=== PATIENT | male | born 2000 | race Caucasian/White ===

== ENCOUNTER 2023-06-05 10:52 | Outpatient (AMB) | payer OTHER, SELFPAY ==
[2023-06-05 10:53] VITALS: BP 122/86; PULSE 110; O2SAT 97; BMI 26.1
--- NOTE | 2023-06-05 10:53 | MHC.PC.OV ---
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 Intake Note: Patient is a new patient here to establish care Real Estate Attorney Required: No Allergies No Known Allergies Allergy (Verified 06/05/23 10:54) Medication List - Last Reconciled 06/05/23 by YVONNE Castro No Known Home Meds Tobacco use date assessed: 06/05/23 Dental Screening Dental Screen Date: 06/05/23 Did you have a dental visit in the last 12 months?: Yes Did you have a dental problem in the last 6 months where you did not have access to dental care?: No Was dental information given to patient?: Patient has dentist HPI HPI Comments History of Present Illness Details 22-year-old male with ADD, MDD, kyaw, marijuana use 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 Loud ADHD sx. Hard time getting things done. Was going to school but did not go this semester as classes were too hard. 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 Denies SI/HI. Is using marijuana some times. Has tried sertraline and fluoxetine in the past Was a pathways program for his dep Hard time falling asleep. Staying asleep is good; getting out of bed and getting going is hard. Appetite is good. Wt up for the first time in a long time. Last time he took his meds was about 9 months ago when he aged out of Peds and was out of refills. He was on prozac 50mg QD with + effect and Adderral ER 20mg QD. He would like r/s these meds. [facility] Medical History (Updated 06/05/23 @ 11:36 by YVONNE Castro) Depression Anxiety Family History (Updated 06/05/23 @ 11:16 by LAUREN Whitehead) Mother Asthma Psychiatric diagnosis Social History Housing: House Patient Tobacco Use Status: Never used Tobacco Second Hand Smoke Exposure: No service: No Current occupational status: unemployed Cognitive needs: No Hearing needs: No Vision needs: No Questionnaire PHQ-9 Over the last 2 weeks, how often have you been bothered by any of the following problems? 1. Little interest or pleasure in doing things: several days 2. Feeling down, depressed, or hopeless: more than half the days 3. Trouble falling or staying asleep, or sleeping too much: several days 4. Feeling tired or having little energy: several days 5. Poor appetite or overeating: not at all 6. Feeling bad about yourself - or that you are a failure or have let yourself or your family down: several days 7. Trouble concentrating on things, such as reading the newspaper or watching television: nearly every day 8. Moving or speaking so slowly that other people could have noticed. Or the opposite - being so fidgety or restless that you have been moving around a lot more than usual: several days 9. Thoughts that you would be better off or of hurting yourself in some way: not at all Total score: 10 Depression Screening Interpretation: Positive Depression Screening Done: Yes 04766 - PHQ-9 Billing: Yes Source: Developed by Drs. Tacos Decker, Yina Eisenberg, Jovany Chatman and colleagues, with an educational quinton from [employer]. Thrive Questionnaire Date Thrive assessed: 06/05/23 I am a: Patient What is your living situation today?: I have a steady place to live Within the past 12 months, did the food you bought not last and you didn't have the money to get more?: Never true Within the past 12 months, did you worry whether your food would run out before you got money to buy more?: Never true Do you have trouble paying for medicines?: No Do you have trouble getting transportation to medical appointments?: No Do you have trouble paying your heating and electricity bill?: No Do you have trouble taking care of your child, family member or friend?: No Do you have trouble with day-to-day activities such as bathing, preparing meals, shopping, managing finances, etc.?: No Are you currently unemployed and looking for a job?: No Are you interested in more education?: No Please select the resources that you would like help with: None THRIVE Score: 0 AUDIT C Alcohol Use Questionnaire (AUDIT-C) 1. How often do you have a drink containing alcohol?: 2-4 times a month 2. How many drinks containing alcohol do you have on a typical day when you are drinking?: 3 or 4 3. How often do you have six or more drinks on one occasion?: Never Total Score: 3 Score Reviewed/Action Taken: Yes KYAW-7 AMB Questionnaire KYAW-7 Date KYAW - 7 assessed: 06/05/23 Feeling nervous, anxious, or on edge: 3 = Nearly every day Not being able to stop or control worryin = Nearly every day Worrying too much about different things: 3 = Nearly every day Trouble relaxin = Several days Being so restless that it is hard to sit still: 1 = Several days Becoming easily annoyed or irritable: 1 = Several days Feeling afraid as if something awful might happen: 0 = Not at all Total KYAW-7 score (0-4 normal; 5-9 mild; 10-14 moderate; 15-21 severe): 12 Source: Developed by Drs. Tacos Decker, Yina Eisenberg, Jovany Chatman and colleagues, with an educational quinton from [employer]. KYAW-7 Assessment Billing KYAW-7 Assessment Tool: KYAW-7 Assessment 38450 Review of Systems Const All systems reviewed & are unremarkable except as noted in HPI and below Physical exam (Primary Care) Vital Signs: Last Vital Signs Pulse 110 H 06/05/23 10:53 BP 122/86 06/05/23 10:53 Pulse Ox 97 06/05/23 10:53 Oxygen Delivery Method Room Air 06/05/23 10:53 BMI result Body Mass Index 26.1 Tobacco/Smoking Status: Tobacco use Status Tobacco use date assessed 06/05/23 06/05/23 10:55 Patient Tobacco Use Status Never used Tobacco 06/05/23 10:55 PHQ-9: PHQ-9 Score PHQ-9: Total score 10 06/05/23 11:26 Depression Screening Interpretation: Positive Thrive Assessment: Date of Thrive Assessment Date Thrive assessed 06/05/23 06/05/23 10:55 Const Other: awake alert cooperative MMM + tachycardia - reports feeling anxious LS CTAB Mood and affect appropriate Assessment and Plan Assessment & Plan (1) MDD (major depressive disorder): Code(s): F32.9 - Major depressive disorder, single episode, unspecified Qualifiers: Major depression recurrence: recurrent Active/Remission status: currently active Major depression episode severity: moderate Qualified Code(s): F33.1 - Major depressive disorder, recurrent, moderate (2) KYAW (generalized anxiety disorder): Code(s): F41.1 - Generalized anxiety disorder (3) ADHD: Code(s): F90.9 - Attention-deficit hyperactivity disorder, unspecified type Qualifiers: Attention deficit-hyperactivity disorder type: predominantly inattentive Qualified Code(s): F90.0 - Attention-deficit hyperactivity disorder, predominantly inattentive type Plan MOBILITY ENGINEER reviewed. Pediatric records received and reviewed. We will start him back on Adderall ER 20 mg p.o. daily. He was made aware that this prescription does require monthly office visit check ins to monitor his vital signs along with his weight and the effectiveness of the medication. He is aware that this is a controlled substance and he will be asked for random pill counts and urine drug screens. If he violates this, controlled substances will no longer be prescribed by this office. In regards to his depression he does not want to start with a counselor at this time. He wishes to get back on his medications and then consider getting back in with a counselor. I have restarted him on Prozac 50 mg daily as he reports took a dose for him past. I told him to take this at bedtime as he is having a hard time sleeping. Total time spent caring for the patient today was 45 minutes. This includes time spent before the visit reviewing the chart, time spent during the visit, and time spent after the visit on documentation This note is constructed using voice recognition software. While every effort has been made to ensure accuracy in anodize machine operator, still errors may have been included Sometimes, these errors may affect the content or meaning of the given sentence . Medications: New fluoxetine (Prozac) 40 mg PO DAILY 90 caps 0RF fluoxetine (Prozac) 10 mg PO DAILY 90 caps 0RF dextroamphetamine-amphetamine 20 mg ER (Adderall XR) Partial Fill upon patient request. 20 mg PO QAM 30 caps 0RF dextroamphetamine-amphetamine 20 mg ER (Adderall XR) Partial Fill upon patient request. 20 mg PO QAM 30 caps 0RF fluoxetine (Prozac) 40 mg PO DAILY 90 caps 0RF fluoxetine (Prozac) 10 mg PO DAILY 90 caps 0RF Patient Instructions: Crisis Hotlines Suicide prevention, domestic violence, and other crisis hotlines for youth, young adults, and their friends and families. [facility]: [facility] Safeline helps youth who have run away, are thinking about running away, or who already ran away but are ready to come home. Parents and guardians can also contact the hotline if they are worried about their child running away or if their child has already left home. The hotline is available 24 hours a day, seven days a week. Youth, parents, and guardians can also use the online chat feature on the [facility] website to ask for help and get support, or [place] [address]. [facility] National Suicide Prevention Lifeline: The [place] Suicide Prevention Lifeline is a network of local crisis centers that are available 24/ to provide support for youth and adults who are in any kind of emotional crisis. In addition to the main hotline number listed above, there are several other numbers to call depending on your needs: Lithuanian Language: Deaf and Hard of [phone] Veterans: Disaster Distress: Anyone can also use their online chat feature on their website. [place] Suicide Prevention Lifeline [facility] Helpline: The [facility] Helpline is available to anyone in [place] who is need of emotional support. Anyone can call or text the helpline to receive help from specially trained volunteers. [place] high school and college students can also get online support through the IMHear_ program. For high school students, volunteers ages 15-18 are available Monday- from 6-9PM. For college students, IMHear_ is available Monday-Monday from 5-9PM. The [employer] Project - The [employer] is a 24/7 crisis intervention and suicide prevention hotline for LGBTQ youth. Youth can also text Arnold to for support, or use the online chat feature on the [employer]'s website. TrevorText is available Monday-Monday between 3-10PM. TrevorChat is available seven days a week between 3-10PM. SafeLink: SafeLink is for anyone who is being affected by domestic violence or dating violence. Volunteers at [employer] speak [place] Leonean and Lithuanian, and [employer] also has a service that can provide translation in more than 130 languages. TTY: Review Flu Vaccine not done: patient reason Coding Level of Care Code New Pt Level 4 (83898) Diagnoses Moderate episode of recurrent major depressive disorder F33.1 Major depression recurrence: recurrent Active/Remission status: currently active Major depression episode severity: moderate KYAW (generalized anxiety disorder) F41.1 Attention deficit hyperactivity disorder (ADHD), predominantly inattentive type F90.0 Attention deficit-hyperactivity disorder type: predominantly inattentive Additional Codes KYAW-7 Assessment Billing - KYAW-7 Assessment Tool: KYAW-7 Assessment 87910 ([id number])
== END 2023-06-05 11:34 | disposition home or self-care (01) ==
PROVIDERS: PCP Nurse Practitioner Family; Visit Provider Nurse Practitioner Family
DX: F33.1 Major depressive disorder, recurrent, moderate (principal); F41.1 Generalized anxiety disorder; F90.0 Attention-deficit hyperactivity disorder, predominantly inattentive type
CPT/HCPCS: 96127; 99204

== ENCOUNTER 2023-07-12 08:01 | Outpatient (AMB) | payer OTHER, SELFPAY ==
--- NOTE | 2023-07-12 08:04 | A.OFFPC_ITS ---
Vital Signs 07/12/23 08:06 Height 5 ft 5 in Weight 148 lb 2 oz BMI 24.6 BP 116/58 L Blood Pressure Location Lt brachial Position Sitting Pulse 97 Pulse Source Pulse Oximeter Pulse Oximetry (%) 97 Oxygen Delivery Method Room Air Intake Visit Reasons: PE Allergies No Known Allergies Allergy (Verified 07/12/23 08:07) Medication List - Last Reconciled 07/12/23 by YVONNE Castro dextroamphetamine-amphetamine 20 mg ER (Adderall XR) 20 mg PO QAM fluoxetine (Prozac) 40 mg PO DAILY fluoxetine (Prozac) 10 mg PO DAILY Tobacco use date assessed: 06/05/23 HPI HPI Comments History of Present Illness Details 22-year-old male with ADD, MDD, kyaw , ma rijuana use 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 Prior was having panic attacks and racing heart nauseas during periods of anxiety. Now still feels anxious in chest, no racing heart and does not feel sick. suppressed sx . Taking at HS. Sleeping is ok. Does not attribute this to medications, rather activity level during the day. Prozac helping with behaviors of shaking and nail biting. + wt loss. Not eating a lot. Has a hard time eating dry foods. Was snacking more prior to meds. Now he feels eating is a task. In regards to ADHD, taking QD. Feels this is working very well. Denies SI, HI. Cont to use marijuana. Twice since last visit. Plan: Cont Adderral same dose. Increase prozac from 50mg to 60mg. Discussed replacing water with caloric beverages. Eat more calorie dense meals or snacks. *monthly visits for Adderral* [facility] Medical History (Updated 07/12/23 @ 08:33 by YVONNE Castro) Depression Anxiety Family History (Updated 06/05/23 @ 11:16 by LAUREN Whitehead) Mother Asthma Psychiatric diagnosis Social History Housing: House Patient Tobacco Use Status: Never used Tobacco Second Hand Smoke Exposure: No service: No Current occupational status: unemployed Cognitive needs: No Hearing needs: No Vision needs: No Questionnaire PHQ-9 Over the last 2 weeks, how often have you been bothered by any of the following problems? Depression Screening Interpretation: Positive Depression Screening Done: Yes Source: Developed by Drs. Tacos Decker, Jovany Rossi and colleagues, with an educational quinton from [employer]. Thrive Questionnaire Date Thrive assessed: 06/05/23 KYAW-7 AMB Questionnaire KYAW-7 Date KYAW - 7 assessed: 06/05/23 Source: Developed by Drs. Tacos eDcker, Jovany Rossi and colleagues, with an educational quinton from [employer]. Review of Systems Const All systems reviewed & are unremarkable except as noted in HPI and below Physical exam (Primary Care) Tobacco/Smoking Status: Tobacco use Status Tobacco use date assessed 06/05/23 06/05/23 10:55 Patient Tobacco Use Status Never used Tobacco 06/05/23 10:55 Depression Screening Interpretation: Positive Thrive Assessment: Date of Thrive Assessment Date Thrive assessed 06/05/23 06/05/23 10:55 Const Other: awake alert cooperative MMM RRR LS CTAB Mood and affect appropriate Assessment and Plan Assessment & Plan (1) ADHD: Comment: Cont: Adderall ER 20 mg p.o. daily. Need to monitor weight. 10 lb loss in 1 month. Caloric beverages and calorie dense snacks He was made aware that this prescription does require monthly office visit check ins to monitor his vital signs along with his weight and the effectiveness of the medication. He is aware that this is a controlled substance and he will be asked for random pill counts and urine drug screens. If he violates this, controlled substances will no longer be prescribed by this office Code(s): F90.9 - Attention-deficit hyperactivity disorder, unspecified type Qualifiers: Attention deficit-hyperactivity disorder type: predominantly inattentive Qualified Code(s): F90.0 - Attention-deficit hyperactivity disorder, predominantly inattentive type (2) KYAW (generalized anxiety disorder): Comment: see MDD A&P for details Plan: increase Prozac 50 mg to 60mg daily to see if this can help curb the anxiety sx Code(s): F41.1 - Generalized anxiety disorder (3) MDD (major depressive disorder): Comment: Has tried sertraline and fluoxetine in the past Was a pathways program for his depression In regards to his depression he does not want to start with a counselor at this time. Plan: increase Prozac 50 mg to 60mg daily Code(s): F32.9 - Major depressive disorder, single episode, unspecified Qualifiers: Major depression recurrence: recurrent Active/Remission status: currently active Major depression episode severity: moderate Qualified Code(s): F33.1 - Major depressive disorder, recurrent, moderate Plan: Total time spent caring for the patient today was 30 minutes. This includes time spent before the visit reviewing the chart, time spent during the visit, and time spent after the visit on documentation This note is constructed using voice recognition software. While every effort has been made to ensure accuracy in assistant professor of surgery, still errors may have been included Sometimes, these errors may affect the content or meaning of the given sentence . (4) Marijuana use: Code(s): F12.90 - Cannabis use, unspecified, uncomplicated Plan Return to the office in 1 month Medications: Changed From fluoxetine (Prozac) 10 mg PO DAILY 90 caps 0RF To fluoxetine (Prozac) 20 mg (2 x 10 mg) PO DAILY 90 caps 0RF Refilled dextroamphetamine-amphetamine 20 mg ER (Adderall XR) Partial Fill upon patient request. 20 mg PO QAM 30 caps 0RF Patient Instructions: Marijuana: Natural = Safe, Right? Marijuana is readily available to use in many states in the [facility]. Understanding the possible risks of use is important to ensure the safety. No matter how you use marijuana (smoke it, eat it, or apply to your skin), it may cause problems with both short term and termite treater use How marijuana affects your BRAIN: Potential effects from Short Term Use Poor focus, memory and reaction time Difficulty with problem solving Hallucinations, paranoia, anxiety Potential effects from Historical Guide Use Memory problems and trouble learning new things Depression, hallucinations, paranoia, anxiety, worsening PTSD symptoms addiction Brain. It is not safe to drive while on marijuana. It makes it hard to us administrative law judge distance, concentrate, react quickly to signals and sounds, be alert and coordinated. If alcohol is combined, this risk is even higher! In regular users, some of the effects from assisted use may last for days or even weeks after stopping marijuana. How inhaling marijuana affects your LUNGS: Inhaling harmful chemicals Gases Small particles Carcinogens (toxins linked to cancer) Breathing problems similar to tobacco smokers Daily cough with mucus Difficulty breathing Lung infections (bronchitis, pneumonia) Lungs How marijuana affects your HEART: Increases risk of heart attack Within the first hour of smoking Increases heart rate 20?100% increase after smoking Increase lasts up to three hours Changes in heart rhythm Feels like your heart skips a beat, or is fluttering, or beating too fast or too slow Heart Is it SAFE to use marijuana with other medications? A combination that can be concerning is the use of opioids and/or benzodiazepines with marijuana. Opioids + Benzodiazepines + Marijuana: Drowsiness: All three can cause drowsiness. Reaction time: All three can reduce reaction time. Do not drive or operate machinery. Overdose: Opioids and Benzodiazepines can cause reduced breathing and in some cases, breathing can stop and a person can . Marijuana containing higher levels of THC may cause difficulty with thinking and memory and this could result in medication errors where extra doses of opioids, benzodiazepines, or other medications may be taken. What is the harm? Example of Opioids Morphine (MS Contin?, Zuleika?) Oxycodone (Percocet?, OxyContin?) Hydrocodone (Vicodin?, Queen?) Fentanyl (Du ragesic?) Methadone Heroin Example of Benzodiazepines Lorazepam (Ativan?) Diazepam (Valium?) Alprazolam (Xanax?) Clonazepam (Klonopin?) If you have specific questions about the safety of using marijuana with other medications, please contact your provider or pharmacist. Some marijuana users can become addicted! You can have problems with marijuana withdrawal. You may have withdrawal symptoms the day after you stop using. These can get worse 2 to 3 days after using and can take 1 to 2 weeks or longer to go away. Recovery and Treatment Contact your provider or health care team if you are having concerns about your marijuana use or to learn more about available treatment services. The marijuana plant is not an FDA-approved medicine: The U.S. Food and Drug Administration (FDA) has not approved the marijuana plant as a medication due to lack of studies on the risks and benefits. Marijuana contains over 100 chemical substances known as cannabinoids. Some of these, like tetrahydrocannabinol (THC), have mind altering effects and can be intoxicating. Cannabidiol (CBD), another cannabinoid, does not cause the same ?high? users of THC experience. THC has been studied for the treatment of several conditions, including nausea and increasing appetite. CBD is similarly being studied for a number of conditions, including childhood epilepsy and inflammation. What is different between the marijuana product I get from the marijuana shop and a prescription from the pharmacy? The right dose of any medicine is important. A specific dose of THC is approved to treat nausea, but high doses of THC may cause vomiting. The ingredients in a medicine must be measured and stay the same from one dose to the next. The marijuana plant contains unknown ingredients that change from plant to plant. This makes it hard to control the ?dose? of marijuana needed to treat a condition and use it in the same way we use other medicines. Future studies are ongoing to establish the role of the marijuana plant and the cannabinoids found in the plant for treatment of medical conditions. If you have questions about using a marijuana product for a medical condition, please discuss this with your medical provider to determine the most appropriate treatment for you. [place] Providers are not able to prescribe marijuana products. Information in this document was compiled by the [facility] Substance Abuse treatment and Education ([facility]). It contains information from factsheets by the National [place] on Drug Abuse (www.drugabuse.gov) and presentation by Shweta Cheng, Shweta Nelson, & Juan Ramon Raphael (2010) entitled ?What providers need to know about cannabis use in Veterans with mental health conditions: Research, policy, practice,? and an additional reference: Shonda Kramer M.D., Desmond Arauz, Ph.D., Han Nelson M.D., and Albina Villatoro, Ph.D: Adverse Effects of Marijuana. N Engl J Med 2014; 370:8157-1943, October 03, 2013 DOI: 10.1056/SMPTcu2493261. [place] [employer]ailing Service Coding Level of Care Code Est Pt Level 4 (35920) Diagnoses Attention deficit hyperactivity disorder (ADHD), predominantly inattentive type F90.0 Attention deficit-hyperactivity disorder type: predominantly inattentive KYAW (generalized anxiety disorder) F41.1 Moderate episode of recurrent major depressive disorder F33.1 Major depression recurrence: recurrent Active/Remission status: currently active Major depression episode severity: moderate Marijuana use F12.90
[2023-07-12 08:06] VITALS: BP 116/58; PULSE 97; O2SAT 97; BMI 24.6
== END 2023-07-12 08:33 | disposition home or self-care (01) ==
PROVIDERS: PCP Nurse Practitioner Family; Visit Provider Nurse Practitioner Family
DX: F90.0 Attention-deficit hyperactivity disorder, predominantly inattentive type (principal); F41.1 Generalized anxiety disorder; F33.1 Major depressive disorder, recurrent, moderate; F12.90 Cannabis use, unspecified, uncomplicated
CPT/HCPCS: 99214

== ENCOUNTER 2023-08-16 08:36 | Outpatient (AMB) | payer OTHER, SELFPAY ==
--- NOTE | 2023-08-16 08:40 | A.OFFPC_ITS ---
Vital Signs 08/16/23 08:41 Height 5 ft 5 in Weight 140 lb BMI 23.3 BP 118/60 Blood Pressure Location Lt brachial Position Sitting Pulse 106 H Pulse Source Pulse Oximeter Intake Visit Reasons: ADHD, KYAW, MDD Allergies No Known Allergies Allergy (Verified 08/16/23 08:43) Medication List - Last Reconciled 08/16/23 by YVONNE Castro dextroamphetamine-amphetamine 20 mg ER (Adderall XR) 20 mg PO QAM fluoxetine (Prozac) 40 mg PO DAILY fluoxetine (Prozac) 20 mg (2 x 10 mg) PO DAILY Tobacco use date assessed: 06/05/23 Dental Screening Dental Screen Date: 06/05/23 HPI HPI Comments History of Present Illness Details 22-year-old male with ADD, MDD, kyaw , ma rijuana use Specialists Counselor - not active Dermatology - not active Health Maintenance: declined flu Here today to fu on KYAW and ADD Self increased Prozac from 60mg to 80 mg and has felt less anxiety. He ran out of 10mg tabs. Sleep is better at this time. Relates to activity Starts new job today - [employer] in [place], as [employer]. 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 Plans to return to school. Cont to lose weight. ADHD sx he feels tolerant to Adderral, no appetite, lots of anxiety and feeling stressed when taking, thoughts racing at night time. Thinks he may have been on Concerta in the past but cannot recall. Peds records from 2019 do not mention. Plan: STOP taking Prozac 80 mg QD. Cont to take 60mg QD. STOP taking Aderral as this is causing adverse effects and wt loss of 17 lbs in 2 months. Start Straterra 10mg po QAM x 2 weeks then increase to 20mg QD. RTO in 4 weeks to fu. [facility] Medical History (Updated 08/16/23 @ 09:14 by YVONNE Castro) Depression Anxiety Family History (Updated 06/05/23 @ 11:16 by LAUREN Whitehead) Mother Asthma Psychiatric diagnosis Social History Housing: House Patient Tobacco Use Status: Never used Tobacco Second Hand Smoke Exposure: No service: No Current occupational status: unemployed Cognitive needs: No Hearing needs: No Vision needs: No Questionnaire Thrive Questionnaire Date Thrive assessed: 06/05/23 KYAW-7 AMB Questionnaire KYAW-7 Date KYAW - 7 assessed: 06/05/23 Source: Developed by Drs. Tacos Decker, Yina Eisenberg, Jovany Chatman and colleagues, with an educational quinton from [employer]. Review of Systems Const All systems reviewed & are unremarkable except as noted in HPI and below Physical exam (Primary Care) Tobacco/Smoking Status: Tobacco use Status Tobacco use date assessed 06/05/23 07/12/23 08:06 Patient Tobacco Use Status Never used Tobacco 07/12/23 08:06 Thrive Assessment: Date of Thrive Assessment Date Thrive assessed 06/05/23 07/12/23 08:06 Const Other: awake alert MMM Tachycardic, regular rythym LS CTAB Jittery and anxious appearing; very pleasant and cooperative. Assessment and Plan Assessment & Plan (1) ADHD: Comment: STOP Adderall d/t side effects and Wt loss Start Strattera 10mg QD x 2 weeks then increase to 20mg QD Code(s): F90.9 - Attention-deficit hyperactivity disorder, unspecified type Qualifiers: Attention deficit-hyperactivity disorder type: predominantly inattentive Qualified Code(s): F90.0 - Attention-deficit hyperactivity disorder, predominantly inattentive type (2) KYAW (generalized anxiety disorder): Comment: see MDD A&P for details Plan: Cont prozac 60mg QD Code(s): F41.1 - Generalized anxiety disorder (3) MDD (major depressive disorder): Comment: Has tried sertraline and fluoxetine in the past Was a pathways program for his depression In regards to his depression he does not want to start with a counselor at this time. Plan: Cont Prozac 60mg QD. Self increased to 80mg when he ran out of 10mg tabs; I query if his uptick in anxiety was related to Adderall. Code(s): F32.9 - Major depressive disorder, single episode, unspecified Qualifiers: Major depression recurrence: recurrent Active/Remission status: currently active Major depression episode severity: moderate Qualified Code(s): F33.1 - Major depressive disorder, recurrent, moderate Plan This note is constructed using voice recognition software. While every effort has been made to ensure accuracy in laser beam cutter, still errors may have been included Sometimes, these errors may affect the content or meaning of the given sentence . Total time spent caring for the patient today was 45 minutes. This includes time spent before the visit reviewing the chart, time spent during the visit, and time spent after the visit on documentation Medications: New fluoxetine 20 mg PO DAILY 90 caps 0RF atomoxetine (Strattera) 20 mg (2 x 10 mg) PO DAILY 60 caps 0RF Discontinued dextroamphetamine-amphetamine 20 mg ER (Adderall XR) Partial Fill upon patient request. Discontinued Reason: Doctor's Order 20 mg PO QAM 30 caps 0RF Patient Instructions: rto in 4 weeks to f/u on Straterra Start Coding Level of Care Code Est Pt Level 5 (58420) Diagnoses Attention deficit hyperactivity disorder (ADHD), predominantly inattentive type F90.0 Attention deficit-hyperactivity disorder type: predominantly inattentive KYAW (generalized anxiety disorder) F41.1 Moderate episode of recurrent major depressive disorder F33.1 Major depression recurrence: recurrent Active/Remission status: currently active Major depression episode severity: moderate
[2023-08-16 08:41] VITALS: BP 118/60; PULSE 106; BMI 23.3
== END 2023-08-16 09:10 | disposition home or self-care (01) ==
PROVIDERS: PCP Nurse Practitioner Family; Visit Provider Nurse Practitioner Family
DX: F90.0 Attention-deficit hyperactivity disorder, predominantly inattentive type (principal); F41.1 Generalized anxiety disorder; F33.1 Major depressive disorder, recurrent, moderate
CPT/HCPCS: 99215

== ENCOUNTER 2023-09-19 13:23 | Outpatient (AMB) | payer OTHER, SELFPAY ==
--- NOTE | 2023-09-19 13:46 | A.OFFPC_ITS ---
Vital Signs 09/19/23 13:47 Height 5 ft 5 in Weight 145 lb 8 oz BMI 24.2 BP 138/76 Blood Pressure Location Lt brachial Position Sitting Pulse 78 Pulse Source Pulse Oximeter Pulse Oximetry (%) 96 Oxygen Delivery Method Room Air Intake Visit Reasons: 1 month w me 30 min f/u Straterra start and Prozac Intake Note: Patient is here to follow up on Straterra and Prozac. Allergies No Known Allergies Allergy (Verified 09/19/23 14:00) Medication List - Last Reconciled 09/19/23 by YVONNE Castro atomoxetine (Strattera) 20 mg (2 x 10 mg) PO DAILY fluoxetine 20 mg PO DAILY fluoxetine (Prozac) 40 mg PO DAILY Tobacco use date assessed: 09/19/23 Dental Screening Dental Screen Date: 06/05/23 HPI HPI Comments History of Present Illness Details Here today to fu on ADHD, MDD and KYAW Since last visit, taking prozac 60mg QD and Straterra 20mg QD Admits it is helping Feeling good Wt has increased; heart rate is back to normal Appetite is back to normal; admits to having cravings and if that food is not av ail some times will not eat. 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 Plan: Cont prozac 60mg QD Increase strattera from 20mg to 36mg QD RTO in 1 month to f/u [facility] Medical History (Updated 09/19/23 @ 15:16 by YVONNE Castro) Depression Anxiety Family History (Updated 06/05/23 @ 11:16 by LAUREN Whitehead) Mother Asthma Psychiatric diagnosis Social History Housing: House Patient Tobacco Use Status: Never used Tobacco e-Cigarette/Vaping Use: Never Used Second Hand Smoke Exposure: No service: No Current occupational status: unemployed Cognitive needs: No Hearing needs: No Vision needs: No Questionnaire PHQ-9 Over the last 2 weeks, how often have you been bothered by any of the following problems? 1. Little interest or pleasure in doing things: several days 2. Feeling down, depressed, or hopeless: not at all 3. Trouble falling or staying asleep, or sleeping too much: not at all 4. Feeling tired or having little energy: not at all 5. Poor appetite or overeating: several days 6. Feeling bad about yourself - or that you are a failure or have let yourself or your family down: not at all 7. Trouble concentrating on things, such as reading the newspaper or watching television: several days 8. Moving or speaking so slowly that other people could have noticed. Or the opposite - being so fidgety or restless that you have been moving around a lot more than usual: nearly every day 9. Thoughts that you would be better off or of hurting yourself in some way: not at all Total score: 6 Depression Screening Interpretation: Positive Depression Screening Done: Yes Source: Developed by Drs. Tacos Decker, Yina Eisenberg, Jovany Chatman and colleagues, with an educational quinton from [employer]. Thrive Questionnaire Date Thrive assessed: 06/05/23 KYAW-7 AMB Questionnaire KYAW-7 Date KYAW - 7 assessed: 09/19/23 Feeling nervous, anxious, or on edge: 1 = Several days Not being able to stop or control worryin = Several days Worrying too much about different things: 1 = Several days Trouble relaxin = Several days Being so restless that it is hard to sit still: 1 = Several days Becoming easily annoyed or irritable: 0 = Not at all Feeling afraid as if something awful might happen: 0 = Not at all Total KYAW-7 score (0-4 normal; 5-9 mild; 10-14 moderate; 15-21 severe): 5 Source: Developed by Drs. Tacos Decker, Yina Eisenberg, Jovany Chatman and colleagues, with an educational quinton from [employer]. Physical exam (Primary Care) Vital Signs: Last Vital Signs Pulse 78 09/19/23 13:47 BP 138/76 09/19/23 13:47 Pulse Ox 96 09/19/23 13:47 Oxygen Delivery Method Room Air 09/19/23 13:47 BMI result Body Mass Index 24.2 Tobacco/Smoking Status: Tobacco use Status Tobacco use date assessed 09/19/23 09/19/23 13:56 Patient Tobacco Use Status Never used Tobacco 09/19/23 13:56 e-Cigarette/Vaping Use Never Used 09/19/23 13:56 PHQ-9: PHQ-9 Score PHQ-9: Total score 6 09/19/23 13:56 Depression Screening Interpretation: Positive Thrive Assessment: Date of Thrive Assessment Date Thrive assessed 06/05/23 09/19/23 13:56 Assessment and Plan Assessment & Plan (1) ADHD: Comment: Increase Strattera from 20 mg to 36 mg daily Code(s): F90.9 - Attention-deficit hyperactivity disorder, unspecified type Qualifiers: Attention deficit-hyperactivity disorder type: predominantly inattentive Qualified Code(s): F90.0 - Attention-deficit hyperactivity disorder, predominantly inattentive type (2) KYAW (generalized anxiety disorder): Comment: see MDD A&P for details Plan: Cont prozac 60mg QD Code(s): F41.1 - Generalized anxiety disorder (3) MDD (major depressive disorder): Comment: Has tried sertraline and fluoxetine in the past Was a pathways program for his depression In regards to his depression he does not want to start with a counselor at this time. Plan: Cont Prozac 60mg QD. Code(s): F32.9 - Major depressive disorder, single episode, unspecified Qualifiers: Major depression recurrence: recurrent Active/Remission status: currently active Major depression episode severity: moderate Qualified Code(s): F33.1 - Major depressive disorder, recurrent, moderate Plan This note is constructed using voice recognition software. While every effort has been made to ensure accuracy in electric stove installer, still errors may have been included Sometimes, these errors may affect the content or meaning of the given sentence . Total time spent caring for the patient today was 30 minutes. This includes time spent before the visit reviewing the chart, time spent during the visit, and time spent after the visit on documentation Medications: New atomoxetine (Strattera) 36 mg (2 x 18 mg) PO DAILY 60 caps 0RF Refilled fluoxetine 20 mg PO DAILY 90 caps 0RF fluoxetine (Prozac) 40 mg PO DAILY 90 caps 0RF Discontinued atomoxetine (Strattera) Discontinued Reason: Doctor's Order 20 mg (2 x 10 mg) PO DAILY 60 caps 0RF Patient Instructions: RTO IN 1 MONTH TO F/U ON INCREASE OF STRATTERA, SOONER IF NEEDED Coding Level of Care Code Est Pt Level 4 (94712) Diagnoses Attention deficit hyperactivity disorder (ADHD), predominantly inattentive type F90.0 Attention deficit-hyperactivity disorder type: predominantly inattentive KYAW (generalized anxiety disorder) F41.1 Moderate episode of recurrent major depressive disorder F33.1 Major depression recurrence: recurrent Active/Remission status: currently active Major depression episode severity: moderate
[2023-09-19 13:47] VITALS: BP 138/76; PULSE 78; O2SAT 96; BMI 24.2
== END 2023-09-19 15:18 | disposition home or self-care (01) ==
PROVIDERS: PCP Nurse Practitioner Family; Visit Provider Nurse Practitioner Family
DX: F90.0 Attention-deficit hyperactivity disorder, predominantly inattentive type (principal); F41.1 Generalized anxiety disorder; F33.1 Major depressive disorder, recurrent, moderate
CPT/HCPCS: 99214

== ENCOUNTER 2023-11-03 09:14 | Outpatient (AMB) | payer OTHER, SELFPAY ==
--- NOTE | 2023-11-03 09:19 | A.OFFPC_ITS ---
Vital Signs 11/03/23 09:20 11/03/23 09:27 Height 5 ft 5 in Weight 128 lb 8 oz 132 lb BMI 21.4 BP 122/80 Blood Pressure Location Rt brachial Position Sitting Respiration 14 Pulse 93 Pulse Source Pulse Oximeter Pulse Oximetry (%) 98 Oxygen Delivery Method Room Air Intake Visit Reasons: med refill Intake Note: Medication follow up. Allergies No Known Allergies Allergy (Verified 11/03/23 09:20) Medication List - Last Reconciled 11/03/23 by YVONNE Castro atomoxetine (Strattera) 36 mg (2 x 18 mg) PO DAILY fluoxetine (Prozac) 40 mg PO DAILY fluoxetine 20 mg PO DAILY Tobacco use date assessed: 09/19/23 Dental Screening Dental Screen Date: 06/05/23 HPI HPI Comments History of Present Illness Details 23 y/o M Here today to fu on ADHD, MDD a nd KYAW Her last office visit his Prozac was maintained at 60 mg daily. His Strattera was increased from 20 mg to 36 mg daily to help with continued breakthrough ADHD symptoms. He reports tolerance and compliance with this treatment regimen. Admitted to improvement in his ADHD symptoms however he continues to noticed difficulties with multistep directions and complex tasks despite the increase. He has not suffering from depressive symptoms or anxiety symptoms. Unfortunately his weight is down today. He attributes this to eating a poor diet outside of work hours, as he gets fresh made and ready made food at work, where as at home he asked to prepare the food and does not like to do this. He also has a physical job and is moving more. Unfortunately he did run out of both the Prozac and the Strattera. Has been without for 1 week. Admits that without the Strattera his ADHD symptoms are burdensome. Awake alert, pleasant & cooperative Tachycardic, regular rhythm LS CTAB Plan: Cont prozac 60mg QD - 90 day refill sent today 0 rf Increase strattera from 36mg to 60mg QD, 1 mo supple 1 rf sent today RTO in 1 month to f/u ADHD and weight loss PFSH Medical History (Updated 11/03/23 @ 10:27 by YVONNE Castro) Depression Anxiety Family History (Updated 06/05/23 @ 11:16 by LAUREN Whitehead) Mother Asthma Psychiatric diagnosis Social History Housing: House Patient Tobacco Use Status: Never used Tobacco e-Cigarette/Vaping Use: Never Used Second Hand Smoke Exposure: No service: No Current occupational status: unemployed Cognitive needs: No Hearing needs: No Vision needs: No Questionnaire Thrive Questionnaire Date Thrive assessed: 06/05/23 KYAW-7 AMB Questionnaire KYAW-7 Date KYAW - 7 assessed: 09/19/23 Source: Developed by Drs. Tacos Decker, Yina Eisenberg, Jovany Chatman and colleagues, with an educational quinton from [employer]. Physical exam (Primary Care) Vital Signs: Last Vital Signs Pulse 93 11/03/23 09:20 Resp 14 11/03/23 09:20 BP 122/80 11/03/23 09:20 Pulse Ox 98 11/03/23 09:20 Oxygen Delivery Method Room Air 11/03/23 09:20 BMI result Body Mass Index 21.4 Tobacco/Smoking Status: Tobacco use Status Tobacco use date assessed 09/19/23 11/03/23 09:19 Patient Tobacco Use Status Never used Tobacco 11/03/23 09:19 e-Cigarette/Vaping Use Never Used 11/03/23 09:19 Thrive Assessment: Date of Thrive Assessment Date Thrive assessed 06/05/23 11/03/23 09:19 Assessment and Plan Assessment & Plan (1) ADHD: Code(s): F90.9 - Attention-deficit hyperactivity disorder, unspecified type Qualifiers: Attention deficit-hyperactivity disorder type: predominantly inattentive Qualified Code(s): F90.0 - Attention-deficit hyperactivity disorder, predominantly inattentive type (2) MDD (major depressive disorder): Comment: Has tried sertraline and fluoxetine in the past Was a pathways program for his depression In regards to his depression he does not want to start with a counselor at this time. Plan: Cont Prozac 60mg QD. Code(s): F32.9 - Major depressive disorder, single episode, unspecified Qualifiers: Major depression recurrence: recurrent Active/Remission status: currently active Major depression episode severity: moderate Qualified Code(s): F33.1 - Major depressive disorder, recurrent, moderate (3) KYAW (generalized anxiety disorder): Comment: see MDD A&P for details Plan: Cont prozac 60mg QD Code(s): F41.1 - Generalized anxiety disorder Plan This note is constructed using voice recognition software. While every effort has been made to ensure accuracy in pin maker, still errors may have been included Sometimes, these errors may affect the content or meaning of the given sentence . Total time spent caring for the patient today was 30 minutes. This includes time spent before the visit reviewing the chart, time spent during the visit, and time spent after the visit on documentation Medications: New atomoxetine 60 mg PO DAILY 30 caps 1RF Refilled fluoxetine (Prozac) 40 mg PO DAILY 90 caps 0RF fluoxetine 20 mg PO DAILY 90 caps 0RF Discontinued atomoxetine (Strattera) Discontinued Reason: Doctor's Order 36 mg (2 x 18 mg) PO DAILY 60 caps 0RF Coding Level of Care Code Est Pt Level 4 (55285) Complex EM visit Add On G2211 Diagnoses Attention deficit hyperactivity disorder (ADHD), predominantly inattentive type F90.0 Attention deficit-hyperactivity disorder type: predominantly inattentive Moderate episode of recurrent major depressive disorder F33.1 Major depression recurrence: recurrent Active/Remission status: currently active Major depression episode severity: moderate KYAW (generalized anxiety disorder) F41.1
[2023-11-03 09:20] VITALS: BP 122/80; PULSE 93; RESP 14; O2SAT 98; BMI 21.4
== END 2023-11-03 09:45 | disposition home or self-care (01) ==
PROVIDERS: PCP Nurse Practitioner Family; Visit Provider Nurse Practitioner Family
DX: F90.0 Attention-deficit hyperactivity disorder, predominantly inattentive type (principal); F33.1 Major depressive disorder, recurrent, moderate; F41.1 Generalized anxiety disorder
CPT/HCPCS: 99214; G2211

== ENCOUNTER 2023-12-01 12:00 | Outpatient (AMB) | payer OTHER, SELFPAY ==
--- NOTE | 2023-12-01 12:03 | MHC.PC.OV ---
Vital Signs 12/01/23 12:06 Height 5 ft 5 in Weight 134 lb BMI 22.3 BP 110/74 Blood Pressure Location Lt brachial Position Sitting Pulse 62 Pulse Source Pulse Oximeter Pulse Oximetry (%) 98 Oxygen Delivery Method Room Air Intake Visit Reasons: FU ADHD/Wt loss Intake Note: Patient here for med f/u Allergies No Known Allergies Allergy (Verified 12/01/23 12:06) Medication List - Last Reconciled 12/01/23 by YVONEN Castro atomoxetine 60 mg PO DAILY fluoxetine (Prozac) 40 mg PO DAILY fluoxetine 20 mg PO DAILY Tobacco use date assessed: 09/19/23 Dental Screening Dental Screen Date: 06/05/23 HPI HPI Comments History of Present Illness Details 23 y/o M Here today to fu on ADHD, MDD and KYAW Here today for a follow up. Since last office visit he feels that his anxiety and depression have been well controlled on Prozac, the dose was not changed in the last office visit. He continues on 60 mg. Needs a refill. In regards to his ADHD, the Strattera was increased at the last office visit from 36 mg to 60 mg. He has been taking this daily as directed. He reports great improvement in his ADHD symptoms. His weight loss has tapered off in his weight is now stable. He would like to continue the medication at the current dose. Does request a referral to a counselor, this referral will be placed today the [facility]. 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 He does wear glasses, the prescription is outdated, he would like a new referral to an eye doctor. A referral to [facility] has been placed today. Plan Continue Prozac 60 mg, Strattera 60 mg, refer to [facility], refer to ophthalmology, return to the office in 3 months for routine follow up of generalized anxiety, major depressive disorder and ADHD, sooner as needed. Exam: Awake alert, pleasant & cooperative Tachycardic, regular rhythm LS CTAB This note is constructed using voice recognition software. While every effort has been made to ensure accuracy in fuse maker, still errors may have been included Sometimes, these errors may affect the content or meaning of the given sentence . [facility] Medical History (Updated 12/01/23 @ 18:27 by YVONNE Castro) Depression Anxiety Family History (Updated 06/05/23 @ 11:16 by LAUREN Whitehead) Mother Asthma Psychiatric diagnosis Social History Housing: House Patient Tobacco Use Status: Never used Tobacco e-Cigarette/Vaping Use: Never Used Second Hand Smoke Exposure: No service: No Current occupational status: unemployed Cognitive needs: No Hearing needs: No Vision needs: No Questionnaire Thrive Questionnaire Date Thrive assessed: 06/05/23 KYAW-7 AMB Questionnaire KYAW-7 Date KYAW - 7 assessed: 09/19/23 Source: Developed by Drs. Tacos Decker, Yina Eisenberg, Jovany Chatman and colleagues, with an educational quinton from [employer]. Physical exam (Primary Care) Vital Signs: Last Vital Signs Pulse 62 12/01/23 12:06 BP 110/74 12/01/23 12:06 Pulse Ox 98 12/01/23 12:06 Oxygen Delivery Method Room Air 12/01/23 12:06 BMI result Body Mass Index 22.3 Tobacco/Smoking Status: Tobacco use Status Tobacco use date assessed 09/19/23 12/01/23 12:05 Patient Tobacco Use Status Never used Tobacco 12/01/23 12:05 e-Cigarette/Vaping Use Never Used 12/01/23 12:05 Thrive Assessment: Date of Thrive Assessment Date Thrive assessed 06/05/23 12/01/23 12:05 Assessment and Plan Assessment & Plan (1) MDD (major depressive disorder): Comment: Has tried sertraline and fluoxetine in the past Was a pathways program for his depression Plan: Cont Prozac 60mg QD. Code(s): F32.9 - Major depressive disorder, single episode, unspecified Qualifiers: Active/Remission status: currently active Major depression episode severity: moderate Major depression recurrence: recurrent Qualified Code(s): F33.1 - Major depressive disorder, recurrent, moderate (2) KYAW (generalized anxiety disorder): Comment: see MDD A&P for details Plan: Cont prozac 60mg QD Code(s): F41.1 - Generalized anxiety disorder (3) Blurred vision, bilateral: Code(s): H53.8 - Other visual disturbances (4) ADHD: Code(s): F90.9 - Attention-deficit hyperactivity disorder, unspecified type Qualifiers: Attention deficit-hyperactivity disorder type: predominantly inattentive Qualified Code(s): F90.0 - Attention-deficit hyperactivity disorder, predominantly inattentive type Orders: Referrals Counseling Referral F33.1 - Major depressive disorder, recurrent, moderate, F41.1 - Generalized anxiety disorder Ophthalmology Referral H53.8 - Other visual disturbances Medications: Refilled fluoxetine (Prozac) 40 mg PO DAILY 90 caps 0RF atomoxetine 60 mg PO DAILY 90 caps 0RF fluoxetine 20 mg PO DAILY 90 caps 0RF Coding Level of Care Code Est Pt Level 4 (98590) Diagnoses Moderate episode of recurrent major depressive disorder F33.1 Active/Remission status: currently active Major depression episode severity: moderate Major depression recurrence: recurrent KYAW (generalized anxiety disorder) F41.1 Blurred vision, bilateral H53.8 Attention deficit hyperactivity disorder (ADHD), predominantly inattentive type F90.0 Attention deficit-hyperactivity disorder type: predominantly inattentive
[2023-12-01 12:06] VITALS: BP 110/74; PULSE 62; O2SAT 98; BMI 22.3
== END 2023-12-01 12:38 | disposition home or self-care (01) ==
PROVIDERS: PCP Nurse Practitioner Family; Visit Provider Nurse Practitioner Family
DX: F33.1 Major depressive disorder, recurrent, moderate (principal); F41.1 Generalized anxiety disorder; H53.8 Other visual disturbances; F90.0 Attention-deficit hyperactivity disorder, predominantly inattentive type
CPT/HCPCS: 99214

== ENCOUNTER 2024-01-18 09:16 | Outpatient (AMB) | payer OTHER, SELFPAY ==
--- NOTE | 2024-01-18 09:19 | A.OFFPC_ITS ---
<Statement entered by Brenda Fink APRN - 01/18/24 16:19> e-consult with provider Johnny Vazquez to discuss psychiatric presntation and medication recommendation done via phone. this procedure writer review record and made recommendations as noted Vital Signs 01/18/24 09:21 01/18/24 15:28 Height 5 ft 5 in Weight 138 lb BMI 23.0 BP 102/62 Blood Pressure Location Lt brachial Position Sitting Respiration 14 Pulse 108 H 115 H Pulse Source Pulse Oximeter Auscultation Pulse Oximetry (%) 99 Oxygen Delivery Method Room Air Intake Visit Reasons: Medications checkup Intake Note: follow up on meds Allergies No Known Allergies Allergy (Verified 01/18/24 09:27) Medication List - Last Reconciled 01/18/24 by Cristine Vazquez, [employer]- atomoxetine 60 mg PO DAILY fluoxetine (Prozac) 40 mg PO DAILY fluoxetine 20 mg PO DAILY Tobacco use date assessed: 09/19/23 Dental Screening Dental Screen Date: 06/05/23 HPI HPI Comments History of Present Illness Details 23-year-old male with ADD, MDD, kyaw , ma rijuana use 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 Feeling a little stressed out. Wants to talk to me today about restarting Adderral as he feels he cannot manage all of the above He also endorses panic attacks. His friend takes something PRN for anxiety and he wants to take something. Tells me his sleep is most disrupted by going over his to do list Wt is stable Asked about getting into counselor - he chose not to pursue this. Did have eye exam, waiting on new glasses. Discussed today guanficine to use QD or PRN to help his focus, quell anxiety and not increase his BP/P. He tells me he took this at age 11. I did not see this in his records. We also discussed PRN BB to help him sleep and help his anxiety. Perhaps sleeping better would help him overall. Also reviewed meeting w/ school for reasonable accommodations. States this was not helpful for him during childhood. Also discussed referral to [facility] for help managing his meds. HE is quite persistent on getting back on Adderral, despite the above and the recommendations against. Does not want to wait to see psych ... he has 3 late assignments already. He feels he cannot wait for the Adderral. Tells me several reasons why he had elevated HR to explain away....quite desperate for the Adderral.. After much discussion he was open to me trying to do a consult via phone with the [facility] for recommendations Exam: Awake alert, pleasant & cooperative Tachycardic, regular rhythm LS CTAB Anxious, cooperative Plan: I spent 10 minutes talking to the [facility] psych nurse practitioner and reviewed the case with her. The recommendation is to discontinue the Prozac as this is a long acting medication and may be slowing down the metabolism of the Adderall. Recommended to start Lexapro 5 mg to help with the anxiety. Continue on Strattera 60 mg. Use a small dose of Adderall immediate release sparingly to help him focus with school work. The recommendation will still be for counseling, school accommodations. I will Check some labs to rule out other causes for his tachycardia, including a urine tox. Patient was called at 15:15 with these recommendations. He is agreeable to all of these. He will come today get the labs done. I would like to see him in about 3 weeks. 10 minutes was spent on the phone with him discussing the plan as above. Labs WNL , UTox below This note is constructed using voice recognition software. While every effort has been made to ensure accuracy in release of information specialist, still errors may have been included Sometimes, these errors may affect the content or meaning of the given sentence . Total time spent caring for the patient today was 75 minutes. This includes time spent before the visit reviewing the chart, time spent during the visit, and time spent after the visit on documentation [facility] Medical History (Updated 01/18/24 @ 09:58 by YVONNE Castro) Depression Anxiety Family History (Updated 06/05/23 @ 11:16 by LAUREN Whitehead) Mother Asthma Psychiatric diagnosis Social History Housing: House Patient Tobacco Use Status: Never used Tobacco e-Cigarette/Vaping Use: Never Used Second Hand Smoke Exposure: No service: No Current occupational status: unemployed Cognitive needs: No Hearing needs: No Vision needs: No Questionnaire PHQ-9 Over the last 2 weeks, how often have you been bothered by any of the following problems? 1. Little interest or pleasure in doing things: nearly every day 2. Feeling down, depressed, or hopeless: more than half the days 3. Trouble falling or staying asleep, or sleeping too much: not at all 4. Feeling tired or having little energy: several days 5. Poor appetite or overeating: not at all 6. Feeling bad about yourself - or that you are a failure or have let yourself or your family down: not at all 7. Trouble concentrating on things, such as reading the newspaper or watching television: several days 8. Moving or speaking so slowly that other people could have noticed. Or the opposite - being so fidgety or restless that you have been moving around a lot more than usual: not at all 9. Thoughts that you would be better off or of hurting yourself in some way: not at all Total score: 7 37550 - PHQ-9 Billing: Yes Source: Developed by Drs. Tacos Decker, Yina Eisenberg, Jovany Chatman and colleagues, with an educational quinton from [employer]. Thrive Questionnaire Date Thrive assessed: 06/05/23 KYAW-7 AMB Questionnaire KYAW-7 Date KYAW - 7 assessed: 01/18/24 Feeling nervous, anxious, or on edge: 1 = Several days Not being able to stop or control worryin = Several days Worrying too much about different things: 1 = Several days Trouble relaxin = Several days Being so restless that it is hard to sit still: 1 = Several days Becoming easily annoyed or irritable: 0 = Not at all Feeling afraid as if something awful might happen: 0 = Not at all Total KYAW-7 score (0-4 normal; 5-9 mild; 10-14 moderate; 15-21 severe): 5 Source: Developed by Drs. Tacos Decker, Yina Eisenberg, Jovany Chatman and colleagues, with an educational quinton from [employer]. KYAW-7 Assessment Billing KYAW-7 Assessment Tool: KYAW-7 Assessment 34525 Physical exam (Primary Care) Vital Signs: Last Vital Signs Pulse 115 H 01/18/24 15:28 Resp 14 01/18/24 09:21 BP 102/62 01/18/24 09:21 Pulse Ox 99 01/18/24 09:21 Oxygen Delivery Method Room Air 01/18/24 09:21 BMI result Body Mass Index 23.0 Tobacco/Smoking Status: Tobacco use Status Tobacco use date assessed 09/19/23 01/18/24 09:21 Patient Tobacco Use Status Never used Tobacco 01/18/24 09:21 e-Cigarette/Vaping Use Never Used 01/18/24 09:21 PHQ-9: PHQ-9 Score PHQ-9: Total score 7 01/18/24 16:59 Thrive Assessment: Date of Thrive Assessment Date Thrive assessed 06/05/23 01/18/24 09:21 Results Reviewed Results Reviewed: RUN: 01/18/24 9222 PAGE 1 [facility] [address] [place] [id number] Literature Professor: Kalyan Keane M.D. Specimen Inquiry Name: Stiven Delgado Age/Sex: 23/M : 2000 Unit#: [id number] Attend Dr: Cristine Vazquez Re01/18/24 Status: REG REF Location: [id number].[id number] Disch: SPEC : [id number] DORIS: 01/18/24 STATUS: COMP REQ : [id number] RECD: 01/18/24-[address]: Cristine Vazquez COMP: 01/18/24-1752 ENTERED: 01/18/24-15[address] [facility] [address]: ORDERED: Ur Drug Scrn Test Result Flag Reference Opiates, Ur Not Detected Not Detect Opiate cut-off is 300 ng/mL. Positive results are unconfirmed and should not be used for non-medical purposes. Barbiturate, Ur Not Detected Not Detect Barbiturate cut-off is 200 ng/mL. Positive results are unconfirmed and should not be used for non-medical purposes. PCP, Ur Not Detected Not Detect Phencyclidine cut-off is 25 ng/mL. Positive results are unconfirmed and should not be used for non-medical purposes. Amphetamine,Ur Not Detected Not Detect Amphetamine cut-off is 1000 ng/mL. Positive results are unconfirmed and should not be used for non-medical purposes. Benzodiazep,Ur Not Detected Not Detect Benzodiazepine cut-off is 200 ng/mL. Positive results are unconfirmed and should not be used for non-medical purposes. Cocaine, Ur Not Detected Not Detect Cocaine cut-off is 300 ng/mL. Positive results are unconfirmed and should not be used for non-medical purposes. Cannabinoid, Ur POSITIVE H Not Detect Cannabinoid cut-off is 50 ng/mL. Positive results are unconfirmed and should not be used for non-medical purposes. Ur Meth Scrn Not Detected Not Detect ng/mL Methadone cut-off is 300 ng/mL. Positive results are unconfirmed and should not be used for non-medical purposes. Fentanyl, ur Not Detected Not Detect Fentanyl cut-off is 1 ng/mL. Positive results are unconfirmed and should not be used for non-medical purposes. Oxycodone Urine Not Detected Not Detect ng/mL Oxycodone cut-off is 100 ng/mL. Positive results are unconfirmed and should not be used for non-medical purposes. Buprenorph Scr Not Detected Not Detect ng/mL Buprenorphine cut-off is 5 ng/mL. Positive results are unconfirmed and should not be used for non-medical purposes. END OF REPORT Assessment and Plan Assessment & Plan (1) KYAW (generalized anxiety disorder): Comment: see MDD A&P for details Plan: Cont prozac 60mg QD Code(s): F41.1 - Generalized anxiety disorder (2) MDD (major depressive disorder): Comment: Has tried sertraline and fluoxetine in the past Was a [facility] program for his depression Plan: Cont Prozac 60mg QD. Code(s): F32.9 - Major depressive disorder, single episode, unspecified Qualifiers: Active/Remission status: currently active Major depression episode severity: moderate Major depression recurrence: recurrent Qualified Code(s): F33.1 - Major depressive disorder, recurrent, moderate (3) ADHD: Code(s): F90.9 - Attention-deficit hyperactivity disorder, unspecified type Qualifiers: Attention deficit-hyperactivity disorder type: predominantly inattentive Qualified Code(s): F90.0 - Attention-deficit hyperactivity disorder, predominantly inattentive type (4) Tachycardia: Code(s): R00.0 - Tachycardia, unspecified Orders: Orders Comprehensive Met. Panel Today F33.1 - Major depressive disorder, recurrent, moderate, F41.1 - Generalized anxiety disorder, F90.0 - Attention-deficit hyperactivity disorder, predominantly inattentive type, R00.0 - Tachycardia, unspecified Vitamin D 25-OH Total Today F33.1 - Major depressive disorder, recurrent, moderate, F41.1 - Generalized anxiety disorder, F90.0 - Attention-deficit hyperactivity disorder, predominantly inattentive type, R00.0 - Tachycardia, unspecified IRON PROFILE Today F33.1 - Major depressive disorder, recurrent, moderate, F41.1 - Generalized anxiety disorder, F90.0 - Attention-deficit hyperactivity disorder, predominantly inattentive type, R00.0 - Tachycardia, unspecified Drug Screen Urine Today F33.1 - Major depressive disorder, recurrent, moderate, F41.1 - Generalized anxiety disorder, F90.0 - Attention-deficit hyperactivity disorder, predominantly inattentive type, R00.0 - Tachycardia, unspecified TSH reflex Free T4 Today F33.1 - Major depressive disorder, recurrent, moderate, F41.1 - Generalized anxiety disorder, F90.0 - Attention-deficit hyperactivity disorder, predominantly inattentive type, R00.0 - Tachycardia, uns pecified Complete Blood Count no Diff Today F33.1 - Major depressive disorder, recurrent, moderate, F41.1 - Generalized anxiety disorder, F90.0 - Attention- deficit hyperactivity disorder, predominantly inattentive type, R00.0 - Tachycardia, unspecified Vitamin B12 and Folate Today F33.1 - Major depressive disorder, recurrent, moderate, F41.1 - Generalized anxiety disorder, F90.0 - Attention-deficit hyperactivity disorder, predominantly inattentive type, R00.0 - Tachycardia, unspecified Hemoglobin A1c Today F33.1 - Major depressive disorder, recurrent, moderate, F41.1 - Generalized anxiety disorder, F90.0 - Attention-deficit hyperactivity disorder, predominantly inattentive type, R00.0 - Tachycardia, unspecified Medications: New escitalopram oxalate (Lexapro) 5 mg PO DAILY 90 tabs 0RF Discontinued fluoxetine (Prozac) Discontinued Reason: Doctor's Order 40 mg PO DAILY 90 caps 0RF fluoxetine Discontinued Reason: Doctor's Order 20 mg PO DAILY 90 caps 0RF Coding Level of Care Code Est Pt Level 5 (66784) Complex EM visit Add On G2211 Diagnoses KYAW (generalized anxiety disorder) F41.1 Moderate episode of recurrent major depressive disorder F33.1 Active/Remission status: currently active Major depression episode severity: moderate Major depression recurrence: recurrent Attention deficit hyperactivity disorder (ADHD), predominantly inattentive type F90.0 Attention deficit-hyperactivity disorder type: predominantly inattentive Tachycardia R00.0 CPT Codes [facility] OUTPT/OFFICE VIS - G2212 Additional Codes KYAW-7 Assessment Billing - KYAW-7 Assessment Tool: KYAW-7 Assessment 77211 ([id number])
[2024-01-18 09:21] VITALS: BP 102/62; PULSE 108; RESP 14; O2SAT 99; BMI 23.0
[2024-01-18 15:28] VITALS: PULSE 115
== END 2024-01-18 11:07 | disposition home or self-care (01) ==
PROVIDERS: PCP Nurse Practitioner Family; Visit Provider Nurse Practitioner Family
DX: R00.0 Tachycardia, unspecified (principal); F41.1 Generalized anxiety disorder; F33.1 Major depressive disorder, recurrent, moderate; F90.0 Attention-deficit hyperactivity disorder, predominantly inattentive type

== ENCOUNTER 2024-01-18 09:16 | Outpatient (REF) | payer OTHER, SELFPAY ==
[2024-01-18 17:42] LABS: Hemoglobin 15.6 g/dl (14.0-18.0); Mean Corpuscular HGB Conc 35.5 g/dl (31.0-36.0); Mean Corpuscular Hemoglobin 30.5 pg (27.0-33.0); Mean Corpuscular Volume 85.9 fL (80.0-98.0); Mean Platelet Volume 10.2 fL (9.4-12.4); Platelet Count 357 X10*3/uL (160-400); Red Blood Count 5.12 X10*6/uL (4.60-5.80); Red Cell Distribution Width 11.9 % (11.0-16.0); White Blood Count 6.8 X10*3/uL (4.8-10.8)
[2024-01-18 17:53] LABS: Amphetamine Screen Urine Not Detected (Not Detect); Barbiturates, Urine Not Detected (Not Detect); Benzodiazepines Screen Urine Not Detected (Not Detect); Buprenorphine Scr Not Detected (Not Detect); Cannabinoid Screen Urine POSITIVE (Not Detect); Cocaine Screen Urine Not Detected (Not Detect); Fentanyl, urine Not Detected (Not Detect); Methadone Screen, Urine Not Detected (Not Detect); Opiate Screen Urine Not Detected (Not Detect); Oxycodone Screen Urine Not Detected (Not Detect); Phencyclidine Screen Urine Not Detected (Not Detect)
[2024-01-18 17:56] LABS: Estimated Average Glucose 94 mg/dL; Hemoglobin A1C 115.7938 umol/L; Hemoglobin A1c % 4.9 % (<6.0); Total Hemoglobin (HGBA1C) 3834.8884 umol/L
[2024-01-18 18:06] LABS: Alanine Aminotransferase 17 U/L (0-40); Albumin Level 4.4 g/dL (3.5-5.0); Alkaline Phosphatase 73 U/L (39-117); Anion Gap 14 (12-20); Aspartate Amino Transferase 30 U/L (5-37); Bilirubin Total 0.5 mg/dL (0.0-1.0); Blood Urea Nitrogen 10 mg/dL (9-16); Calcium 9.9 mg/dL (8.4-10.2); Carbon Dioxide 23 mmol/L (22-29); Chloride 106 mmol/L (96-108); Estimated Glomerular Filt Rate > 60; Glucose Random 89 mg/dL (60-115); Iron 112 mcg/dL (45-160); Percent Iron Saturation 41 % (15-50); Potassium 4.6 mmol/L (3.3-5.1); Sodium 138 mmol/L (135-145); Total Iron Binding Capacity 276 mcg/dL (228-428); Total Protein 8.1 g/dL (6.5-8.0); Unsaturated Iron Binding 164 ug/dL
[2024-01-18 18:22] LABS: TSH reflex Free T4 0.61 uIU/mL (0.32-4.0); Vitamin D 25-OH Total 22.5 ng/mL (>30)
[2024-01-18 18:34] LABS: Folate 10.1 ng/mL (> or = 4.0); Vitamin B12 600 pg/mL (200-900)
== END 2024-01-18 09:17 | disposition home or self-care (01) ==
LOC: HO.WFDLDS 09:16
PROVIDERS: PCP Nurse Practitioner Family; Visit Provider Nurse Practitioner Family
DX: F41.1 Generalized anxiety disorder (principal); F33.1 Major depressive disorder, recurrent, moderate; F90.0 Attention-deficit hyperactivity disorder, predominantly inattentive type; R00.0 Tachycardia, unspecified; Z79.899 Other long term (current) drug therapy
CPT/HCPCS: 80053; 80307; 82306; 82607; 82746; 83036; 83540; 84443; 85027; 96127; 99212

== ENCOUNTER 2024-02-16 08:37 | Outpatient (AMB) | payer OTHER, SELFPAY ==
--- NOTE | 2024-02-16 08:40 | MHC.PC.OV ---
Vital Signs 02/16/24 08:42 02/16/24 09:08 Height 5 ft 5 in Weight 144 lb 2 oz BMI 24.0 BP 118/68 Blood Pressure Location Lt brachial Position Sitting Respiration 15 Pulse 103 H 90 Pulse Source Pulse Oximeter Auscultation Pulse Oximetry (%) 97 Oxygen Delivery Method Room Air Intake Visit Reasons: 3 months 30 min ADHD KYAW FU Intake Note: follow up on meds Allergies No Known Allergies Allergy (Verified 02/16/24 08:55) Medication List - Last Reconciled 02/16/24 by Cristine Melgar, [employer]- atomoxetine 60 mg PO DAILY dextroamphetamine-amphetamine 5 mg (Adderall) 5 mg PO DAILY PRN escitalopram oxalate (Lexapro) 5 mg PO DAILY Tobacco use date assessed: 09/19/23 Dental Screening Dental Screen Date: 06/05/23 HPI HPI Comments History of Present Illness Details 23 y/o M Here today to fu on ADHD, MDD and KYAW Family hx: Mom suicide/substance abuse; Dad alive lives in [place] with his parents, hx of drug abuse sober for 16 years, Maternal grandparents alive Labs WNL except Vit D def , UTox 02/17/24 + marijuana otherwise negative Ran out of Adderall a few days ago. This does not add up 02/17/24 30 pills sent. After discussion, admits was taking more than one time per day on days that he had a lot of school work; was RXd PRN Was taking it every day. Feels like he is gaining tolerance Cont to work but not as many hours, this is better Taking lexapro in the AM. Having more depressed sx since stopping the prozac. And some anxiety. Cont to take Straterra as directed Sleeping good; appetite good. Denies si/hi. In school, better focus; grades are ok , has some incomplete assignments. Things are still stressful w current girlfriend When reviewing his tachycardia, he feels like this is related to anxiety. Denies chest pain or shortness of breath. Exam: Awake alert, pleasant & cooperative Tachycardic, regular rhythm LS CTAB Mildly Anxious, cooperative After examining him, he asked if he HR was better then when he first came in to the office. I told him, yes, it was now 90 bpm. He said that he tried to slow his heart rate down and do deep breathing while i was doing the exam. He says he feels trembling in his chest when his HR is high and he is anxious. He always gets nervous when someone is close to him, examining him or in his personal space. I asked about hx of abuse. He reports no abuse. However tells me for the first time, his mom committed suicide while on drugs when he was 16; he was exposed to this. His dad lives in [place], was drug addicted but has been sober for 16 years. He lives w/ maternal grandparents who he doesnt have the best relationship with however he feels safe. Discussed w/ him today counseling. He was in counseling in the past; right now schedule too busy for this. Will cont to consider. I thanked him for his honest and advised him to cont to be honest w/ me. Edu about taking meds as prescribed along w/ contract for stimulants reviewed with him today Patient is aware they are being prescribed a controlled substance. They were educated that this medication does require routine monthly office visits to monitor weight, blood pressure, heart rate and to screen for any signs of abuse or misuse. They were educated that they may be subject to random pill counts and/or U tox screenings. The prescription drug monitoring program we will be monitored at each visit to further screen for signs of abuse or misuse to include filling prescriptions at other physician's offices. The patient should maintain prescription refills of the same local pharmacy and advised the provider of any changes immediately. If at any time there is a concern for abuse or misuse or if there are any signs of side effects such as elevated blood pressure, elevated heart rate or weight loss patient is made aware that this medication will be discontinued. The patient is aware of the above and is willing to proceed. Plan: Increase lexapro from 5mg daily to 10mg daily, ok to take 2 of the 5mg tabs that you have at home. Cont Strattera 60mg QD... no refill needed 90 day supply sent 02/17/24 Increase Adderall to 10 mg daily PRN in the afternoon 3 day holter to eval tachycardia Start Vit D3 2000 IU QD Marijauna cessation edu RTO 4 weeks for fu on above, sooner PRN This note is constructed using voice recognition software. While every effort has been made to ensure accuracy in radiology tech, still errors may have been included Sometimes, these errors may affect the content or meaning of the given sentence . Total time spent caring for the patient today was 40 minutes. This includes time spent before the visit reviewing the chart, time spent during the visit, and time spent after the visit on documentation [facility] Medical History (Updated 02/16/24 @ 13:13 by [facility]) Depression Anxiety Family History (Updated 06/05/23 @ 11:16 by LAUREN Whitehead) Mother Asthma Psychiatric diagnosis Social History Housing: House Patient Tobacco Use Status: Never used Tobacco e-Cigarette/Vaping Use: Never Used Second Hand Smoke Exposure: No service: No Current occupational status: unemployed Cognitive needs: No Hearing needs: No Vision needs: No Questionnaire PHQ-9 Over the last 2 weeks, how often have you been bothered by any of the following problems? 1. Little interest or pleasure in doing things: several days 2. Feeling down, depressed, or hopeless: several days 3. Trouble falling or staying asleep, or sleeping too much: not at all 4. Feeling tired or having little energy: several days 5. Poor appetite or overeating: not at all 6. Feeling bad about yourself - or that you are a failure or have let yourself or your family down: several days 7. Trouble concentrating on things, such as reading the newspaper or watching television: several days 8. Moving or speaking so slowly that other people could have noticed. Or the opposite - being so fidgety or restless that you have been moving around a lot more than usual: not at all 9. Thoughts that you would be better off or of hurting yourself in some way: not at all Total score: 5 81626 - PHQ-9 Billing: Yes Source: Developed by Drs. Tacos Decker, Yina Eisenberg, Jovany Chatman and colleagues, with an educational quinton from [employer]. Thrive Questionnaire Date Thrive assessed: 02/16/24 I am a: Patient What is your living situation today?: I have a steady place to live Within the past 12 months, did the food you bought not last and you didn't have the money to get more?: Never true Within the past 12 months, did you worry whether your food would run out before you got money to buy more?: Never true Do you have trouble paying for medicines?: No Do you have trouble getting transportation to medical appointments?: No Do you have trouble paying your heating and electricity bill?: No Do you have trouble taking care of your child, family member or friend?: No Do you have trouble with day-to-day activities such as bathing, preparing meals, shopping, managing finances, etc.?: No Are you currently unemployed and looking for a job?: No Are you interested in more education?: Yes Please select the resources that you would like help with: None Currently or been in a relationship where the following occur: No concerns reported THRIVE Score: 0 AUDIT C Alcohol Use Questionnaire (AUDIT-C) 1. How often do you have a drink containing alcohol?: Monthly or less 2. How many drinks containing alcohol do you have on a typical day when you are drinking?: 3 or 4 3. How often do you have six or more drinks on one occasion?: Less than monthly Total Score: 3 KYAW-7 AMB Questionnaire KYAW-7 Date KYAW - 7 assessed: 02/16/24 Feeling nervous, anxious, or on edge: 1 = Several days Not being able to stop or control worryin = Several days Worrying too much about different things: 1 = Several days Trouble relaxin = Several days Being so restless that it is hard to sit still: 1 = Several days Becoming easily annoyed or irritable: 1 = Several days Feeling afraid as if something awful might happen: 0 = Not at all Total KYAW-7 score (0-4 normal; 5-9 mild; 10-14 moderate; 15-21 severe): 6 Source: Developed by Drs. Tacos Decker, Yina Eisenberg, Jovany Chatman and colleagues, with an educational quinton from [employer]. KYAW-7 Assessment Billing KYAW-7 Assessment Tool: KYAW-7 Assessment 74228 Physical exam (Primary Care) Vital Signs: Last Vital Signs Pulse 90 02/16/24 09:08 Resp 15 02/16/24 08:42 BP 118/68 02/16/24 08:42 Pulse Ox 97 02/16/24 08:42 Oxygen Delivery Method Room Air 02/16/24 08:42 BMI result Body Mass Index 24.0 Tobacco/Smoking Status: Tobacco use Status Tobacco use date assessed 09/19/23 02/16/24 08:44 Patient Tobacco Use Status Never used Tobacco 02/16/24 08:44 e-Cigarette/Vaping Use Never Used 02/16/24 08:44 PHQ-9: PHQ-9 Score PHQ-9: Total score 5 02/16/24 08:52 Thrive Assessment: Date of Thrive Assessment Date Thrive assessed 02/16/24 02/16/24 08:44 Currently or been in a relationship where the following occur: No concerns reported Coding Level of Care Code Est Pt Level 5 (18709) Complex EM visit Add On G2211 Diagnoses Attention deficit hyperactivity disorder (ADHD), predominantly inattentive type F90.0 Attention deficit-hyperactivity disorder type: predominantly inattentive KYAW (generalized anxiety disorder) F41.1 Moderate episode of recurrent major depressive disorder F33.1 Active/Remission status: currently active Major depression episode severity: moderate Major depression recurrence: recurrent Tachycardia R00.0 Family history of drug abuse Z81.3 Family history of suicide Z81.8 Vitamin D deficiency E55.9 Marijuana use F12.90 Additional Codes KYAW-7 Assessment Billing - KYAW-7 Assessment Tool: KYAW-7 Assessment 02571 ([id number]) Assessment & Plan Assessment & Plan (1) ADHD: Code(s): F90.9 - Attention-deficit hyperactivity disorder, unspecified type Category: Medical Qualifiers: Attention deficit-hyperactivity disorder type: predominantly inattentive Qualified Code(s): F90.0 - Attention-deficit hyperactivity disorder, predominantly inattentive type Plan: . (2) KYAW (generalized anxiety disorder): Code(s): F41.1 - Generalized anxiety disorder Category: Medical Plan: . (3) MDD (major depressive disorder): Comment: Has tried sertraline and fluoxetine in the past Was a pathways program for his depression Code(s): F32.9 - Major depressive disorder, single episode, unspecified Category: Medical Qualifiers: Active/Remission status: currently active Major depression episode severity: moderate Major depression recurrence: recurrent Qualified Code(s): F33.1 - Major depressive disorder, recurrent, moderate Plan: . (4) Tachycardia: Code(s): R00.0 - Tachycardia, unspecified Category: Medical Plan: . (5) Family history of drug abuse: Comment: Mom and Dad Code(s): Z81.3 - Family history of other psychoactive substance abuse and dependence Category: Medical Plan: . (6) Family history of suicide: Comment: Mom Code(s): Z81.8 - Family history of other mental and behavioral disorders Category: Medical Plan: . (7) Vitamin D deficiency: Code(s): E55.9 - Vitamin D deficiency, unspecified Category: Medical Plan: . (8) Marijuana use: Code(s): F12.90 - Cannabis use, unspecified, uncomplicated Category: Social Hx Plan: Marijuana: Natural = Safe, Right? Marijuana is readily available to use in many states in the [facility]. Understanding the possible risks of use is important to ensure the safety. No matter how you use marijuana (smoke it, eat it, or apply to your skin), it may cause problems with both short term and continuous churn buttermaker use How marijuana affects your BRAIN: Potential effects from Short Term Use Poor focus, memory and reaction time Difficulty with problem solving Hallucinations, paranoia, anxiety Potential effects from Residential Use Memory problems and trouble learning new things Depression, hallucinations, paranoia, anxiety, worsening PTSD symptoms addiction Brain. It is not safe to drive while on marijuana. It makes it hard to buffing and sueding machine operator distance, concentrate, react quickly to signals and sounds, be alert and coordinated. If alcohol is combined, this risk is even higher! In regular users, some of the effects from continuous churn buttermaker use may last for days or even weeks after stopping marijuana. How inhaling marijuana affects your LUNGS: Inhaling harmful chemicals Gases Small particles Carcinogens (toxins linked to cancer) Breathing problems similar to tobacco smokers Daily cough with mucus Difficulty breathing Lung infections (bronchitis, pneumonia) Lungs How marijuana affects your HEART: Increases risk of heart attack Within the first hour of smoking Increases heart rate 20?100% increase after smoking Increase lasts up to three hours Changes in heart rhythm Feels like your heart skips a beat, or is fluttering, or beating too fast or too slow Heart Is it SAFE to use marijuana with other medications? A combination that can be concerning is the use of opioids and/or benzodiazepines with marijuana. Opioids + Benzodiazepines + Marijuana: Drowsiness: All three can cause drowsiness. Reaction time: All three can reduce reaction time. Do not drive or operate machinery. Overdose: Opioids and Benzodiazepines can cause reduced breathing and in some cases, breathing can stop and a person can . Marijuana containing higher levels of THC may cause difficulty with thinking and memory and this could result in medication errors where extra doses of opioids, benzodiazepines, or other medications may be taken. What is the harm? Example of Opioids Morphine (MS Contin?, Zuleika?) Oxycodone (Percocet?, OxyContin?) Hydrocodone (Vicodin?, [place]?) Fentanyl (Duragesic?) Methadone Heroin Example of Benzodiazepines Lorazepam (Ativan?) Diazepam (Valium?) Alprazolam (Xanax?) Clonazepam (Klonopin?) If you have specific questions about the safety of using marijuana with other medications, please contact your provider or pharmacist. Some marijuana users can become addicted! You can have problems with marijuana withdrawal. You may have withdrawal symptoms the day after you stop using. These can get worse 2 to 3 days after using and can take 1 to 2 weeks or longer to go away. Recovery and Treatment Contact your provider or health care team if you are having concerns about your marijuana use or to learn more about available treatment services. The marijuana plant is not an FDA-approved medicine: The U.S. Food and Drug Administration (FDA) has not approved the marijuana plant as a medication due to lack of studies on the risks and benefits. Marijuana contains over 100 chemical substances known as cannabinoids. Some of these, like tetrahydrocannabinol (THC), have mind altering effects and can be intoxicating. Cannabidiol (CBD), another cannabinoid, does not cause the same ?high? users of THC experience. THC has been studied for the treatment of several conditions, including nausea and increasing appetite. CBD is similarly being studied for a number of conditions, including childhood epilepsy and inflammation. What is different between the marijuana product I get from the marijuana shop and a prescription from the pharmacy? The right dose of any medicine is important. A specific dose of THC is approved to treat nausea, but high doses of THC may cause vomiting. The ingredients in a medicine must be measured and stay the same from one dose to the next. The marijuana plant contains unknown ingredients that change from plant to plant. This makes it hard to control the ?dose? of marijuana needed to treat a condition and use it in the same way we use other medicines. Future studies are ongoing to establish the role of the marijuana plant and the cannabinoids found in the plant for treatment of medical conditions. If you have questions about using a marijuana product for a medical condition, please discuss this with your medical provider to determine the most appropriate treatment for you. [facility] Providers are not able to prescribe marijuana products. Information in this document was compiled by the [facility] of Excellence in Substance Abuse treatment and Education ([facility]). It contains information from factsheets by the [employer] [place] on Drug Abuse (www.drugabuse.gov) and presentation by Shweta Cheng, Shweta Nelson, & Juan Ramon Raphael (2010) entitled ?What providers need to know about cannabis use in Veterans with mental health conditions: Research, policy, practice,? and an additional reference: Shonda Kramer M.D., Desmond Arauz, Ph.D., Han Nelson M.D., and Albina Villatoro, Ph.D: Adverse Effects of Marijuana. N Engl J Med 2014; 370:2431-3175, October 03, 2013 DOI: 10.1056/QOFPtz8891688. [facility] Academic Detailing Service Plan . Orders: Orders ECG 3 day holter monitor Today R00.0 - Tachycardia, unspecified Medications: New dextroamphetamine-amphetamine 10 mg (Adderall) Partial Fill upon patient request. 10 mg PO DAILY 30 tabs 0RF cholecalciferol (vitamin D3) 50 mcg PO DAILY 90 caps 2RF Discontinued dextroamphetamine-amphetamine 5 mg (Adderall) Partial Fill upon patient request. Discontinued Reason: Doctor's Order 5 mg PO DAILY PRN 30 tabs 0RF ADHD
[2024-02-16 08:42] VITALS: BP 118/68; PULSE 103; RESP 15; O2SAT 97; BMI 24.0
[2024-02-16 09:08] VITALS: PULSE 90
== END 2024-02-16 09:15 | disposition home or self-care (01) ==
PROVIDERS: PCP Nurse Practitioner Family; Visit Provider Nurse Practitioner Family
DX: F90.0 Attention-deficit hyperactivity disorder, predominantly inattentive type (principal); F41.1 Generalized anxiety disorder; F33.1 Major depressive disorder, recurrent, moderate; R00.0 Tachycardia, unspecified; Z81.3 Family history of other psychoactive substance abuse and dependence; Z81.8 Family history of other mental and behavioral disorders; E55.9 Vitamin D deficiency, unspecified; F12.90 Cannabis use, unspecified, uncomplicated

== ENCOUNTER → 2024-02-16 08:37 | Outpatient (BNVA) | payer OTHER, SELFPAY | PROVIDERS: PCP Nurse Practitioner Family; Visit Provider Nurse Practitioner Family | DX: F90.0 Attention-deficit hyperactivity disorder, predominantly inattentive type (principal); F41.1 Generalized anxiety disorder; F33.1 Major depressive disorder, recurrent, moderate; R00.0 Tachycardia, unspecified; E55.9 Vitamin D deficiency, unspecified; F12.90 Cannabis use, unspecified, uncomplicated; Z81.3 Family history of other psychoactive substance abuse and dependence; Z81.8 Family history of other mental and behavioral disorders | CPT/HCPCS: 96127; 99212 ==

== ENCOUNTER 2024-03-18 09:44 | Outpatient (AMB) | payer OTHER, SELFPAY ==
--- NOTE | 2024-03-18 09:48 | A.OFFPC_ITS ---
Vital Signs 03/18/24 09:50 Height 5 ft 5 in Weight 150 lb 6 oz BMI 25.0 BP 120/70 Blood Pressure Location Lt brachial Position Sitting Respiration 13 Pulse 89 Pulse Source Pulse Oximeter Pulse Oximetry (%) 98 Oxygen Delivery Method Room Air Intake Visit Reasons: F/U on meds Intake Note: follow up on meds It Support Technician Required: No Allergies No Known Allergies Allergy (Verified 03/18/24 10:02) Medication List - Last Reconciled 03/18/24 by CHAPO Castro- atomoxetine 60 mg PO DAILY cholecalciferol (vitamin D3) 50 mcg PO DAILY dextroamphetamine-amphetamine 10 mg (Adderall) 10 mg PO DAILY escitalopram oxalate (Lexapro) 5 mg PO DAILY Tobacco use date assessed: 09/19/23 Dental Screening Dental Screen Date: 06/05/23 HPI HPI Comments History of Present Illness Details 23 y/o M with Vit D def, ADD, MDD, kyaw , marijuana use Family hx: Mom suicide/substance abuse; Dad alive lives in [place] with his parents, hx of drug abuse sober for 16 years, Maternal grandparents alive Specialists Counselor - not active Dermatology - not active Health Maintenance: declined flu Tdap 03/18/24 Here today to fu on ADHD, MDD and KYAW Since last office visit, his Lexapro was increased from 5 mg to 10 mg to help control his breakthrough anxiety symptoms. He does report that his anxiety is better however he continues with anxiety day-to-day. This was on an ADHD follow up today however he would like to increase his prn Adderall to 15 mg. Reports that he is taking the 10 mg daily and feels like it wears off. He is still going to school. He is not feeling any classes. He continues to be late on some assignments. He will be taking winter classes. He reports that he is eating more. His weight is increased. He continues with chronic tachycardia. Has not scheduled the Holter monitor yet. Vit D def, taking supplement as directed. Exam: Awake alert, pleasant & cooperative Tachycardic, regular rhythm LS CTAB Less Anxious, cooperative Plan: Increase lexaparo from 10mg to 15 mg Call to schedule holter before next visit Cont Strattera 60mg QD... no refill needed 90 day supply sent 02/17/24 Increase Adderall from 10 mg 15 mg daily as needed for breakthrough symptoms, takes sparingly Tdap today Cont Vit D3 2000 IU QD Marijauna cessation edu RTO 4 weeks for fu on above, sooner PRN Patient is aware they are being prescribed a controlled substance. They were educated that this medication does require routine monthly office visits to monitor weight, blood pressure, heart rate and to screen for any signs of abuse or misuse. They were educated that they may be subject to random pill counts and/or U tox screenings. The prescription drug monitoring program we will be monitored at each visit to further screen for signs of abuse or misuse to include filling prescriptions at other physician's offices. The patient should maintain prescription refills of the same local pharmacy and advised the p rovider of any changes immediately. If at any time there is a concern for abuse or misuse or if there are any signs of side effects such as elevated blood pressure, elevated heart rate or weight loss patient is made aware that this medication will be discontinued. The patient is aware of the above and is willing to proceed. This note is constructed using voice recognition software. While every effort has been made to ensure accuracy in machine ii engraver, still errors may have been included Sometimes, these errors may affect the content or meaning of the given sentence . Total time spent caring for the patient today was 30 minutes. This includes time spent before the visit reviewing the chart, time spent during the visit, and time spent after the visit on documentation [facility] Medical History (Updated 02/16/24 @ 13:13 by Cristine Melgar [facility]) Depression Anxiety Family History (Updated 06/05/23 @ 11:16 by Koki Esquivel [facility]) Mother Asthma Psychiatric diagnosis Social History Housing: House Patient Tobacco Use Status: Never used Tobacco e-Cigarette/Vaping Use: Never Used Second Hand Smoke Exposure: No service: No Current occupational status: unemployed Cognitive needs: No Hearing needs: No Vision needs: No Questionnaire PHQ-9 Over the last 2 weeks, how often have you been bothered by any of the following problems? 21332 - PHQ-9 Billing: Patient declined-do not bill Source: Developed by Drs. Tacos Decker, Yina Eisenberg, Jovany Chatman and colleagues, with an educational quinton from [employer]. Thrive Questionnaire Date Thrive assessed: 03/18/24 I am a: Patient What is your living situation today?: I have a steady place to live Within the past 12 months, did the food you bought not last and you didn't have the money to get more?: Never true Within the past 12 months, did you worry whether your food would run out before you got money to buy more?: Never true Do you have trouble paying for medicines?: No Do you have trouble getting transportation to medical appointments?: No Do you have trouble paying your heating and electricity bill?: No Do you have trouble taking care of your child, family member or friend?: No Do you have trouble with day-to-day activities such as bathing, preparing meals, shopping, managing finances, etc.?: No Are you currently unemployed and looking for a job?: No Are you interested in more education?: Yes Please select the resources that you would like help with: None Currently or been in a relationship where the following occur: No concerns reported THRIVE Score: 0 KYAW-7 AMB Questionnaire KYAW-7 Date KYAW - 7 assessed: 03/18/24 Source: Developed by Drs. Tacos Decker, Yina Eisenberg, Jovany Chatman and colleagues, with an educational quinton from [employer]. KYAW-7 Assessment Billing KYAW-7 Assessment Tool: KYAW-7 Assessment 68520 Physical exam (Primary Care) Vital Signs: Last Vital Signs Pulse 89 03/18/24 09:50 Resp 13 03/18/24 09:50 BP 120/70 03/18/24 09:50 Pulse Ox 98 03/18/24 09:50 Oxygen Delivery Method Room Air 03/18/24 09:50 BMI result Body Mass Index 25.0 Tobacco/Smoking Status: Tobacco use Status Tobacco use date assessed 09/19/23 03/18/24 09:52 Patient Tobacco Use Status Never used Tobacco 03/18/24 09:52 e-Cigarette/Vaping Use Never Used 03/18/24 09:52 Thrive Assessment: Date of Thrive Assessment Date Thrive assessed 03/18/24 03/18/24 09:52 Currently or been in a relationship where the following occur: No concerns reported Immunizations Boostrix Tdap 2.5 Lf unit-8 mcg-5 Lf/0.5 mL intramuscular syringe Performing Provider: YVONNE Castro Performing Location[place] [facility] Administered by: Leonie Rivera RN on 03/18/24 10:08 Dose Route Admin Location Dispensed Lot Number Expiration Date [facility] Blacksmith Supervisor 0.5 mL IM Left Deltoid 0.5 mL [id number] 01/26/25 22089-797-12 [employer] VIS Given Date VIS Provided VIS Publication Date 03/18/24 Single Vaccine 20 Eligibility Eligibility Date Funding Source Not [facility] Eligible 03/18/24 Private Coding Level of Care Code Est Pt Level 4 (84352) Complex EM visit Add On G2211 Diagnoses Tachycardia R00.0 Vitamin D deficiency E55.9 KYAW (generalized anxiety disorder) F41.1 Moderate episode of recurrent major depressive disorder F33.1 Active/Remission status: currently active Major depression episode severity: moderate Major depression recurrence: recurrent Attention deficit hyperactivity disorder (ADHD), predominantly inattentive type F90.0 Attention deficit-hyperactivity disorder type: predominantly inattentive Need for Tdap vaccination Z23 Additional Codes KYAW-7 Assessment Billing - KYAW-7 Assessment Tool: KYAW-7 Assessment 83331 ([id number]) Assessment & Plan Assessment & Plan (1) Tachycardia: Code(s): R00.0 - Tachycardia, unspecified Category: Medical Plan: . (2) Vitamin D deficiency: Code(s): E55.9 - Vitamin D deficiency, unspecified Category: Medical Plan: . (3) KYAW (generalized anxiety disorder): Code(s): F41.1 - Generalized anxiety disorder Category: Medical Plan: . (4) MDD (major depressive disorder): Comment: Has tried sertraline and fluoxetine in the past Was a pathways program for his depression Code(s): F32.9 - Major depressive disorder, single episode, unspecified Category: Medical Qualifiers: Active/Remission status: currently active Major depression episode severity: moderate Major depression recurrence: recurrent Qualified Code(s): F33.1 - Major depressive disorder, recurrent, moderate Plan: . (5) ADHD: Code(s): F90.9 - Attention-deficit hyperactivity disorder, unspecified type Category: Medical Qualifiers: Attention deficit-hyperactivity disorder type: predominantly inattentive Qualified Code(s): F90.0 - Attention-deficit hyperactivity disorder, predominantly inattentive type Plan: . (6) Need for Tdap vaccination: Code(s): Z23 - Encounter for immunization Plan: . Orders: Orders TDaP Immunization Today Z23 - Encounter for immunization Medications: New escitalopram oxalate (Lexapro) take with 5 mg tab for total of 15mg daily 10 mg PO DAILY 30 tabs 1RF Changed From escitalopram oxalate (Lexapro) 5 mg PO DAILY 90 tabs 0RF To escitalopram oxalate (Lexapro) take w 10 mg for today of 15mg daily 5 mg PO DAILY 90 tabs 0RF From dextroamphetamine-amphetamine 10 mg (Adderall) Partial Fill upon patient request. 10 mg PO DAILY 30 tabs 0RF To dextroamphetamine-amphetamine 10 mg (Adderall) Partial Fill upon patient request. 15 mg (1.5 x 10 mg) PO DAILY 45 tabs 0RF
[2024-03-18 09:50] VITALS: BP 120/70; PULSE 89; RESP 13; O2SAT 98; BMI 25.0
== END 2024-03-18 10:18 | disposition home or self-care (01) ==
PROVIDERS: PCP Nurse Practitioner Family; Visit Provider Nurse Practitioner Family
DX: R00.0 Tachycardia, unspecified (principal); E55.9 Vitamin D deficiency, unspecified; F41.1 Generalized anxiety disorder; F33.1 Major depressive disorder, recurrent, moderate; F90.0 Attention-deficit hyperactivity disorder, predominantly inattentive type; Z23 Encounter for immunization

== ENCOUNTER → 2024-03-18 09:44 | Outpatient (BNVA) | payer OTHER, SELFPAY | PROVIDERS: PCP Nurse Practitioner Family; Visit Provider Nurse Practitioner Family | DX: Z23 Encounter for immunization (principal); R00.0 Tachycardia, unspecified; E55.9 Vitamin D deficiency, unspecified; F41.1 Generalized anxiety disorder; F33.1 Major depressive disorder, recurrent, moderate; F90.9 Attention-deficit hyperactivity disorder, unspecified type | CPT/HCPCS: 90471; 90715; 96127; 99212 ==

== ENCOUNTER 2024-05-15 10:31 | Outpatient (AMB) | payer OTHER, SELFPAY ==
--- NOTE | 2024-05-15 10:33 | A.OFFPC_ITS ---
Vital Signs 05/15/24 10:36 Height 5 ft 5 in Weight 150 lb 2 oz BMI 25.0 BP 117/66 Blood Pressure Location Rt brachial Position Sitting Respiration 12 Pulse 101 H Pulse Source Pulse Oximeter Pulse Oximetry (%) 98 Oxygen Delivery Method Room Air Intake Visit Reasons: Med f/u Intake Note: follow up on med Electric Deicer Inspector Required: No Allergies No Known Allergies Allergy (Verified 05/15/24 10:42) Medication List - Last Reconciled 05/15/24 by YASHIRA CastroP- atomoxetine 60 mg PO DAILY cholecalciferol (vitamin D3) 50 mcg PO DAILY dextroamphetamine-amphetamine 10 mg (Adderall) 15 mg (1.5 x 10 mg) PO DAILY escitalopram oxalate (Lexapro) 5 mg PO DAILY escitalopram oxalate (Lexapro) 10 mg PO DAILY Tobacco use date assessed: 09/19/23 Dental Screening Dental Screen Date: 06/05/23 HPI HPI Comments History of Present Illness Details 23 y/o M with Vit D def, ADD, MDD, kyaw , marijuana use Family hx: Mom suicide/substance abuse; Dad alive lives in [place] with his parents, hx of drug abuse sober for 16 years, Maternal grandparents alive Specialists Counselor - not active Dermatology - not active Health Maintenance: declined flu Tdap 03/18/24 The patient is a 23-year-old male presenting with an upper respiratory infection and for a follow-up on generalized anxiety disorder, major depressive disorder, and ADHD. He reports a recent increase in Lexapro from 10 mg to 15 mg daily since his last visit to address breakthrough anxiety which he now notes is more controlled. He describes an absence of emotion in previously overwhelming situations, marking improved anxiety management. The patient was prescribed Adderall 15 mg daily as needed for breakthrough ADHD symptoms; however, he has been without the medication for approximately a month due to missing an appointment and not refilling his prescription. His ADHD symptoms remain unmanaged without the medication. Cont on atomoxetine 60mg. Wt stable. Appetite/sleep good. He was diagnosed with chronic tachycardia, and a Holter monitor was previously ordered, but not yet completed. More recently, he developed symptoms occurring over the past two days, including throat soreness, congestion, coughing, headache, and body aches, suggesting an upper respiratory infection. He perceives dehydration as a contributing factor to his headache and throat discomfort. No at home tx prior to coming in today. 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 - Current relationship issues include ov erwhelming presence of a partner, with mentioned efforts to establish boundaries. Exam: Awake alert, pleasant & cooperative Sclera and conjunctiva clear bilat Nares clear drainage, turbinates within normal limits, no sinus tenderness with palpation bilat TM intact w/ congestion bilat MMM, pharynx + erythem w/o exudate, uvula midline, strep negative Tachycardic, regular rhythm LS CTAB Less Anxious, cooperative Results - Tests and Diagnostics: - Swabs sent fo r COVID, Influenza, RSV - Throat swab completed to rule out stre ptococcal infection Plan - Continue Lexapro 15 mg daily with 90-d ay supply to address anxiety stabilization. - Reinitiate Adderall prescription at 15 mg daily as needed for ADHD symptoms. - Advise on completion of Holter monitor for tachycardia assessment. - He will be called w results of viral s wab once avail and tx initiated as approp. - Encourage follow-up for outpatient [facility] services for mental health support, involving referral as necessary. Brief intervention w community navigator today to help. - Promote adequate hydration and symptom management for acute upper respiratory symptoms. Discussion Notes The patient and I discussed the current management of generalized anxiety disorder and ADHD. I endorsed the continuation of Lexapro at the current dosage due to noted symptomatic improvement. We addressed the lack of Adderall due to prescription refill issues, and I agreed to send a refill to pharmacy concurrently with Lexapro prescriptions. I recommended further investigation into chronic tachycardia with a Holter monitor as planned previously. The diagnostic studies performed today include nasal and throat swabs for potential viral infections and streptococcal pharyngitis due to presenting symptoms. The importance of hydration and rest was emphasized in managing his current illness. Additionally, I stressed the significance of establishing supportive mental health therapy, offering direct referral assistance in this regard. Patient was informed and verbally consented to the use of an ambient scribe for clinic note documentation during this visit. This note is constructed using voice recognition software. While every effort has been made to ensure accuracy in operations supervisor chemical cleaning, still errors may have been included Sometimes, these errors may affect the content or meaning of the given sentence . Total time spent caring for the patient today was 45 minutes. This includes time spent before the visit reviewing the chart, time spent during the visit, and time spent after the visit on documentation [facility] Medical History (Updated 05/15/24 @ 10:49 by Cristine Melgar [facility]) Depression Anxiety Family History (Updated 06/05/23 @ 11:16 by Koki Esquivel [facility]) Mother Asthma Psychiatric diagnosis Social History Housing: House Patient Tobacco Use Status: Never used Tobacco e-Cigarette/Vaping Use: Never Used Second Hand Smoke Exposure: No service: No Current occupational status: unemployed Cognitive needs: No Hearing needs: No Vision needs: No Questionnaire PHQ-9 Over the last 2 weeks, how often have you been bothered by any of the following problems? 1. Little interest or pleasure in doing things: nearly every day 2. Feeling down, depressed, or hopeless: several days 3. Trouble falling or staying asleep, or sleeping too much: several days 4. Feeling tired or having little energy: several days 5. Poor appetite or overeating: not at all 6. Feeling bad about yourself - or that you are a failure or have let yourself or your family down: several days 7. Trouble concentrating on things, such as reading the newspaper or watching television: more than half the days 8. Moving or speaking so slowly that other people could have noticed. Or the opposite - being so fidgety or restless that you have been moving around a lot more than usual: not at all 9. Thoughts that you would be better off or of hurting yourself in some way: not at all Total score: 9 Depression Screening Interpretation: Positive Depression Screening Follow-up: Existing condition and In treatment Depression Screening Done: Yes 92199 - PHQ-9 Billing: Yes Source: Developed by Drs. Tacos Decker, Yina Eisenberg, Jovany Chatman and colleagues, with an educational qiunton from [employer]. Thrive Questionnaire Date Thrive assessed: 05/15/24 I am a: Patient What is your living situation today?: I have a steady place to live Within the past 12 months, did the food you bought not last and you didn't have the money to get more?: Never true Within the past 12 months, did you worry whether your food would run out before you got money to buy more?: Never true Do you have trouble paying for medicines?: No Do you have trouble getting transportation to medical appointments?: No Do you have trouble paying your heating and electricity bill?: No Do you have trouble taking care of your child, family member or friend?: No Do you have trouble with day-to-day activities such as bathing, preparing meals, shopping, managing finances, etc.?: No Are you currently unemployed and looking for a job?: No Are you interested in more education?: No Please select the resources that you would like help with: None Currently or been in a relationship where the following occur: No concerns reported THRIVE Score: 0 AUDIT C Alcohol Use Questionnaire (AUDIT-C) 1. How often do you have a drink containing alcohol?: Monthly or less 2. How many drinks containing alcohol do you have on a typical day when you are drinking?: 3 or 4 3. How often do you have six or more drinks on one occasion?: Less than monthly Total Score: 3 KYAW-7 AMB Questionnaire KYAW-7 Date KYAW - 7 assessed: 05/15/24 Feeling nervous, anxious, or on edge: 1 = Several days Not being able to stop or control worryin = Several days Worrying too much about different things: 1 = Several days Trouble relaxin = Several days Being so restless that it is hard to sit still: 1 = Several days Becoming easily annoyed or irritable: 1 = Several days Feeling afraid as if something awful might happen: 1 = Several days Total KYAW-7 score (0-4 normal; 5-9 mild; 10-14 moderate; 15-21 severe): 7 Source: Developed by Drs. Tacos Decker, Yina Eisenberg, Jovany Chatman and colleagues, with an educational quinton from [employer]. KYAW-7 Assessment Billing KYAW-7 Assessment Tool: KYAW-7 Assessment 93576 Physical exam (Primary Care) Vital Signs: Last Vital Signs Pulse 101 H 05/15/24 10:36 Resp 12 05/15/24 10:36 BP 117/66 05/15/24 10:36 Pulse Ox 98 05/15/24 10:36 Oxygen Delivery Method Room Air 05/15/24 10:36 BMI result Body Mass Index 25.0 Tobacco/Smoking Status: Tobacco use Status Tobacco use date assessed 09/19/23 05/15/24 10:38 Patient Tobacco Use Status Never used Tobacco 05/15/24 10:38 e-Cigarette/Vaping Use Never Used 05/15/24 10:38 PHQ-9: PHQ-9 Score PHQ-9: Total score 9 05/15/24 10:38 Depression Screening Interpretation: Positive Depression Screening Follow-up: Existing condition and In treatment Thrive Assessment: Date of Thrive Assessment Date Thrive assessed 05/15/24 05/15/24 10:38 Currently or been in a relationship where the following occur: No concerns reported Results AMB Rapid Strep AMB Rapid Strep Negative Last Edit by Enma Hamlin MA on 05/15/24 11:01 Coding Level of Care Code Est Pt Level 5 (88040) Complex EM visit Add On G2211 Diagnoses Attention deficit hyperactivity disorder (ADHD), predominantly inattentive type F90.0 Attention deficit-hyperactivity disorder type: predominantly inattentive KYAW (generalized anxiety disorder) F41.1 Moderate episode of recurrent major depressive disorder F33.1 Major depression recurrence: recurrent Active/Remission status: currently active Major depression episode severity: moderate Tachycardia R00.0 Flu-like symptoms R68.89 Family history of drug abuse Z81.3 Family history of suicide Z81.8 Additional Codes KYAW-7 Assessment Billing - KYAW-7 Assessment Tool: KYAW-7 Assessment 85092 ([id number]) PHQ-9 - 04535 - PHQ-9 Billing: Yes ([id number]) Assessment & Plan Assessment & Plan (1) ADHD: Code(s): F90.9 - Attention-deficit hyperactivity disorder, unspecified type Category: Medical Qualifiers: Attention deficit-hyperactivity disorder type: predominantly inattentive Qualified Code(s): F90.0 - Attention-deficit hyperactivity disorder, predominantly inattentive type (2) KYAW (generalized anxiety disorder): Code(s): F41.1 - Generalized anxiety disorder Category: Medical (3) MDD (major depressive disorder): Comment: Has tried sertraline and fluoxetine in the past Was a pathways program for his depression Code(s): F32.9 - Major depressive disorder, single episode, unspecified Category: Medical Qualifiers: Major depression recurrence: recurrent Active/Remission status: cur rently active Major depression episode severity: moderate Qualified Code(s): F33.1 - Major depressive disorder, recurrent, moderate (4) Tachycardia: Code(s): R00.0 - Tachycardia, unspecified Category: Medical (5) Flu-like symptoms: Code(s): R68.89 - Other general symptoms and signs Category: Medical (6) Family history of drug abuse: Comment: Mom and Dad Code(s): Z81.3 - Family history of other psychoactive substance abuse and dependence Category: Medical (7) Family history of suicide: Comment: Mom Code(s): Z81.8 - Family history of other mental and behavioral disorders Category: Medical Plan . Orders: Orders AMB Rapid Strep Screen Today Z13.9 - Encounter for screening, unspecified SARS-CoV2/FLU/RSV Today R09.89 - Other specified symptoms and signs involving the circulatory and respiratory systems, R68.89 - Other general symptoms and signs Referrals Nurse Navigator Referral F33.1 - Major depressive disorder, recurrent, moderate, F41.1 - Generalized anxiety disorder, Z81.3 - Family history of other psychoactive substance abuse and dependence, Z81.8 - Family history of other mental and behavioral disorders Medications: Refilled atomoxetine 60 mg PO DAILY 90 caps 0RF dextroamphetamine-amphetamine 10 mg (Adderall) Partial Fill upon patient request. 15 mg (1.5 x 10 mg) PO DAILY 45 tabs 0RF escitalopram oxalate (Lexapro) take with 5 mg tab for total of 15mg daily 10 mg PO DAILY 90 tabs 1RF escitalopram oxalate (Lexapro) take w 10 mg for today of 15mg daily 5 mg PO DAILY 90 tabs 1RF Patient Instructions: Patient Instructions - Take Lexapro 15 mg once daily, fill prescription for a 90-day supply. - Refill and take Adderall as prescribed for ADHD symptoms. - Increase fluid intake to remain hydrated. - Follow up to complete Holter monitor testing for heart rate concerns. - Implement home remedies for respiratory symptoms, e.g., saline gargles, humidifier use. - Consider counseling services; schedule an appointment as discussed. - Report worsening symptoms such as high fever or difficulty breathing immediately.
[2024-05-15 10:36] VITALS: BP 117/66; PULSE 101; RESP 12; O2SAT 98; BMI 25.0
== END 2024-05-15 11:15 | disposition home or self-care (01) ==
PROVIDERS: PCP Nurse Practitioner Family; Visit Provider Nurse Practitioner Family
DX: F90.0 Attention-deficit hyperactivity disorder, predominantly inattentive type (principal); F41.1 Generalized anxiety disorder; F33.1 Major depressive disorder, recurrent, moderate; R00.0 Tachycardia, unspecified; R68.89 Other general symptoms and signs; Z81.3 Family history of other psychoactive substance abuse and dependence; Z81.8 Family history of other mental and behavioral disorders; Z13.9 Encounter for screening, unspecified

== ENCOUNTER → 2024-05-15 10:31 | Outpatient (BNVA) | payer OTHER, SELFPAY | PROVIDERS: PCP Nurse Practitioner Family; Visit Provider Nurse Practitioner Family | DX: F41.1 Generalized anxiety disorder (principal); F33.9 Major depressive disorder, recurrent, unspecified; F90.9 Attention-deficit hyperactivity disorder, unspecified type; F90.0 Attention-deficit hyperactivity disorder, predominantly inattentive type; F33.1 Major depressive disorder, recurrent, moderate; R00.0 Tachycardia, unspecified; R68.89 Other general symptoms and signs; Z81.3 Family history of other psychoactive substance abuse and dependence; Z81.8 Family history of other mental and behavioral disorders; Z79.899 Other long term (current) drug therapy | CPT/HCPCS: 87880; 96127; 99212 ==

== ENCOUNTER 2024-05-15 14:31 | Outpatient (REF) | payer OTHER, SELFPAY ==
[2024-05-15 16:09] LABS: Influenza A PCR NEGATIVE (Negative); Influenza B PCR NEGATIVE (Negative); Resp Syncy Virus RNA Qual PCR POSITIVE (Negative); SARS COV2 PCR INHOUSE NEGATIVE (Negative)
== END 2024-05-15 14:32 | disposition home or self-care (01) ==
LOC: HO.LNP 14:31
PROVIDERS: Visit Provider Nurse Practitioner Family
DX: R09.89 Other specified symptoms and signs involving the circulatory and respiratory systems (principal); R68.89 Other general symptoms and signs
CPT/HCPCS: 0241U

== ENCOUNTER 2024-06-24 13:06 | Outpatient (AMB) | payer OTHER, SELFPAY ==
--- NOTE | 2024-06-24 13:07 | A.OFFPC_ITS ---
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 Required: No Allergies No Known Allergies Allergy (Verified 06/24/24 13:28) Medication List - Last Reconciled 06/24/24 by CHAPO Castro- atomoxetine 60 mg PO DAILY cholecalciferol (vitamin D3) 50 mcg PO DAILY dextroamphetamine-amphetamine 10 mg (Adderall) 15 mg (1.5 x 10 mg) PO DAILY escitalopram oxalate (Lexapro) 10 mg PO DAILY escitalopram oxalate (Lexapro) 5 mg PO DAILY Tobacco use date assessed: 06/24/24 Dental Screening Dental Screen Date: 06/24/24 Did you have a dental visit in the last 12 months?: Yes Did you have a dental problem in the last 6 months where you did not have access to dental care?: No Was dental information given to patient?: Patient has dentist HPI HPI Comments History of Present Illness Details 23 y/o M with Vit D def, ADD, MDD, kyaw , marijuana use Family hx: Mom suicide/substance abuse; Dad alive lives in [place] his parents, hx of drug abuse sober for 16 years, Maternal grandparents alive Specialists Counselor - not active Dermatology - not active Health Maintenance: declined flu Tdap 03/18/24 - The patient is a 23-year-old male pres enting with a routine follow-up for ADHD, Generalized Anxiety Disorder, and Major Depressive Disorder. - ADHD: The patient is on Adderall 15 mg daily as needed, mentions refill issues affecting medication adherence. - Generalized Anxiety Disorder: Counseli ng referral made, but the patient has not initiated therapy. - Major Depressive Disorder: Continues o n Escitalopram (Lexapro) 15 mg daily; reports ongoing depressive episodes related to situational factors - Vitamin D deficiency: Identified, yet patient has not picked up the prescribed supplement, impacting potential mood improvements. _ Not in school, not working, same girlfriend (stressor) Denies SI/HI Cont to use marijuana Exam: Awake alert, pleasant & cooperative RRR LS CTAB Flat affect, anxious Asking for increase in Adderral Results - Lab Findings: Noted vitamin D deficien cy with levels low. Discussion Notes During the visit, I reviewed the challenges the patient faces due to adherence to medication refills and incorporating counseling into his routine as part of managing ADHD, Generalized Anxiety Disorder, and Major Depressive Disorder. We discussed the importance of consistent medication usage, including vitamin D supplementation to address noted deficiency which may impact mood and energy levels. The benefits of counseling were emphasized, acknowledging the patient?s history and its significance in his current psychological status. We also contemplated the potential increase in Lexapro to address ongoing depressive symptoms and looked at a small increment in Atomoxetine dosage for better management of ADHD symptoms without escalating stimulant use. Further discussion occurred on the necessity to reliably obtain and take all prescribed supplements and medications. Assessment and Plan 1. Attention-Deficit/Hyperactivity Disor dami (ADHD): The patient is on an as- needed Adderall regimen which has been disrupted due to refill issues. Increasing Atomoxetine to 80 mg may help mitigate symptoms while reducing the reliance on Adderall. 2. Generalized Anxiety Disorder: The lac k of uptake of counseling services persists. Encouragement and facilitation of access to counseling services are essential to help manage anxiety symptoms effectively. 3. Major Depressive Disorder: Current de pressive symptoms may necessitate a Lexapro increase to 20 mg, reflecting a need for closer monitoring of mood improvements. Ensuring consistent supplementation of vitamin D is crucial for aiding mood stabilization. 4. Vitamin D deficiency: The continuatio n of deficiency supplements was emphasized as integral to mood and energy enhancement. Ensuring adherence by incorporating vitamin D with daily medications is essential. Patient Instructions - Continue taking Lexapro daily; increas e dosage as discussed. - Adhere to vitamin D supplementation da jose alongside other medications. - Seek counseling services to aid in man aging anxiety; support will be provided if needed to facilitate access. - Maintain adherence to Adderall regimen and coordinate timely refills. - Return if you experience any worsening symptoms or have concerns regarding medication adjustments. Consent Patient was informed and verbally consented to the use of an ambient scribe for clinic note documentation during this visit. Total time spent caring for the patient today was 30 minutes. This includes time spent before the visit reviewing the chart, time spent during the visit, and time spent after the visit on documentation, reviewing laboratory results, diagnostic imaging, medications, performing a medically necessary evaluation, counseling on diagnoses, care coordination, ordering appropriate tests, ordering appropriate medications, review of tests performed by other providers, reporting test results with the patient, communication with other healthcare providers. [facility] Medical History (Updated 05/15/24 @ 10:49 by [facility]) Anxiety Depression Family History (Updated 06/05/23 @ 11:16 by Koki Esquivel [facility]) Mother Asthma Psychiatric diagnosis Social History Housing: House Patient Tobacco Use Status: Never used Tobacco e-Cigarette/Vaping Use: Never Used Second Hand Smoke Exposure: No service: No Current occupational status: unemployed Cognitive needs: No Hearing needs: No Vision needs: No Questionnaire PHQ-9 Over the last 2 weeks, how often have you been bothered by any of the following problems? 63783 - PHQ-9 Billing: Patient declined-do not bill Source: Developed by Drs. Tacos Decker, Yina Eisenberg, Jovany Chatman and colleagues, with an educational quinton from [employer]. Thrive Questionnaire Date Thrive assessed: 06/24/24 I am a: Patient What is your living situation today?: I have a steady place to live Within the past 12 months, did the food you bought not last and you didn't have the money to get more?: Never true Within the past 12 months, did you worry whether your food would run out before you got money to buy more?: Never true Do you have trouble paying for medicines?: No Do you have trouble getting transportation to medical appointments?: No Do you have trouble paying your heating and electricity bill?: No Do you have trouble taking care of your child, family member or friend?: No Do you have trouble with day-to-day activities such as bathing, preparing meals, shopping, managing finances, etc.?: No Are you currently unemployed and looking for a job?: No Are you interested in more education?: No THRIVE Score: 0 KYAW-7 AMB Questionnaire KYAW-7 Date KYAW - 7 assessed: 06/24/24 Feeling nervous, anxious, or on edge: 0 = Not at all Not being able to stop or control worryin = Not at all Worrying too much about different things: 0 = Not at all Trouble relaxin = Not at all Being so restless that it is hard to sit still: 0 = Not at all Becoming easily annoyed or irritable: 0 = Not at all Feeling afraid as if something awful might happen: 0 = Not at all Total KYAW-7 score (0-4 normal; 5-9 mild; 10-14 moderate; 15-21 severe): 0 Source: Developed by Drs. Tacos Decker, Yina Eisenberg, Jovany Chatman and colleagues, with an educational quinton from [employer]. KYAW-7 Assessment Billing KYAW-7 Assessment Tool: KYAW-7 Assessment 35374 Physical exam (Primary Care) Vital Signs: Last Vital Signs Temp 96.9 F 06/24/24 13:10 Pulse 101 H 06/24/24 13:10 Resp 12 06/24/24 13:10 BP 124/66 06/24/24 13:10 Pulse Ox 99 06/24/24 13:10 Oxygen Delivery Method Room Air 06/24/24 13:10 BMI result Body Mass Index 25.1 Tobacco/Smoking Status: Tobacco use Status Tobacco use date assessed 06/24/24 06/24/24 13:11 Patient Tobacco Use Status Never used Tobacco 06/24/24 13:11 e-Cigarette/Vaping Use Never Used 06/24/24 13:11 Thrive Assessment: Date of Thrive Assessment Date Thrive assessed 06/24/24 06/24/24 13:11 Coding Level of Care Code Est Pt Level 4 (33802) Complex EM visit Add On G2211 Diagnoses Attention deficit hyperactivity disorder (ADHD), predominantly inattentive type F90.0 Attention deficit-hyperactivity disorder type: predominantly inattentive KYAW (generalized anxiety disorder) F41.1 Moderate episode of recurrent major depressive disorder F33.1 Active/Remission status: currently active Major depression episode severity: moderate Major depression recurrence: recurrent Marijuana use F12.90 Vitamin D deficiency E55.9 Additional Codes KYAW-7 Assessment Billing - KYAW-7 Assessment Tool: KYAW-7 Assessment 63320 ([id number]) Assessment & Plan Assessment & Plan (1) ADHD: Code(s): F90.9 - Attention-deficit hyperactivity disorder, unspecified type Category: Medical Qualifiers: Attention deficit-hyperactivity disorder type: predominantly inattentive Qualified Code(s): F90.0 - Attention-deficit hyperactivity disorder, pr edominantly inattentive type (2) KYAW (generalized anxiety disorder): Code(s): F41.1 - Generalized anxiety disorder Category: Medical (3) MDD (major depressive disorder): Comment: Has tried sertraline and fluoxetine in the past Was a pathways program for his depression Code(s): F32.9 - Major depressive disorder, single episode, unspecified Category: Medical Qualifiers: Active/Remission status: currently active Major depression episode severity: moderate Major depression recurrence: recurrent Qualified Code(s): F33.1 - Major depressive disorder, recurrent, moderate (4) Marijuana use: Code(s): F12.90 - Cannabis use, unspecified, uncomplicated Category: Medical (5) Vitamin D deficiency: Code(s): E55.9 - Vitamin D deficiency, unspecified Category: Medical Plan . Medications: New escitalopram oxalate (Lexapro) 20 mg PO DAILY 90 tabs 0RF atomoxetine 80 mg PO DAILY 90 caps 0RF Refilled cholecalciferol (vitamin D3) 50 mcg PO DAILY 90 caps 2RF dextroamphetamine-amphetamine 10 mg (Adderall) Partial Fill upon patient request. 15 mg (1.5 x 10 mg) PO DAILY 45 tabs 0RF Discontinued atomoxetine Discontinued Reason: Doctor's Order 60 mg PO DAILY 90 caps 0RF escitalopram oxalate (Lexapro) take with 5 mg tab for total of 15mg daily Discontinued Reason: Patient Completed Course 10 mg PO DAILY 90 tabs 1RF escitalopram oxalate (Lexapro) take w 10 mg for today of 15mg daily Discontinued Reason: Doctor's Order 5 mg PO DAILY 90 tabs 1RF
[2024-06-24 13:10] VITALS: BP 124/66; PULSE 101; RESP 12; TEMP 36.1; O2SAT 99; BMI 25.1
--- OUTSIDE RECORDS SUMMARY | 2024-06-24 14:56 | XMS_ITS | Clinical Summary ---
Author Organization [facility] Address [address] [place] [phone] Phone Care Team Providers Care Director Physical Name Role Phone Maria Eugenia Arita MD Primary Care Provider Unavailabl e Allergies Active Allergy Reactions Criticality Noted Date Comments Corylus 04/02/2021 Medications FLUoxetine 10 MG capsuleIndications :Depression, unspecified depression type Take 1 capsule (10 mg total) by mouth daily. 30 capsule 3 3 Active amphetamine-dextro amphetamine XR (Adderall XR) 20 MG 24 hr capsuleIndications :Attention deficit disorder (ADD) without hyperactivity Take 1 capsule (20 mg total) by mouth every morning. 30 capsule 3 Active FLUoxetine 40 MG capsuleIndications :Depression, unspecified depression type TAKE 1 CAPSULE(40 MG) BY MOUTH DAILY 30 capsule 3 3 Active Active Problems Problem Noted Date Diagnosed Date Marijuana use 02/20/2021 Assessment & Plan (02/20/2021 11:17 AM EDT): Discussed concerns about reported substance use. Advised discontinuation and offered COSMO program. Patient declines at this time. Feels that with restart of medication for anxiety he may feel less inclined to use marijuana Anxiety 02/19/2021 Overview (08/14/2021): 08/13/21: Fluoxetine increased from 30 to 40 mg Assessment & Plan (04/11/2022 5:05 PM EST): No concerns voiced today. No med changes. Ok to refill until ages out of the practice . Assessment & Plan (08/14/2021 7:20 AM EDT): Very tired during day. Disrupted sleep schedule. KYAW 7 positive- mutual decision to increase fluoxetine from 30 mg to 40mg and take a night. Med check in 4 weeks. Once he is out of the 10 mg tabs, we will send Rx for 40 mg tab Assessment & Plan (05/11/2021 1:26 PM EST): Increase fluoxetine to 30 mg QD. Med check in 3 months Assessment & Plan (04/03/2021 10:10 AM EST): Less anxiety since restart of fluoxetine. KYAW 7 improved very slightly- will increase fluoxetine to 20 mg QD. Call office with any interval concerns. Med check in 4 weeks. Assessment & Plan (02/20/2021 11:22 AM EDT): Feeling anxious about staring college classes. Requesting to restart some sort of medication after several years off. KYAW 7 elevated. Will start fluoxetine ( see depression plan above). Interested in therapist- encouraged to reach back to last therapist he was working with as he felt he had a well established relationship with him. ADD (attention deficit disorder) 05/10/2016 Overview (08/14/2021): 05/20 stable not on meds doing better in school 08/13/21: change from adderall 10 mg to adderall ER 10 mg Assessment & Plan (04/11/2022 5:04 PM EST): Doing well on current dose- will be starting college in May. Ok to refill until ages out of practice. Advised to call office with any interval concerns Assessment & Plan (02/05/2022 5:37 PM EDT): Will increase Adderall from 15 mg to 20 mg- he will call for new med Rx once he finishes current supply of 15 mg. Assessment & Plan (12/11/2021 10:07 AM EDT): Stiven finding that medication wears off quicker that it used to. Would like to make an adjustment- will go from 10 mg to 15 mg of Adderall XR . Med check in 2 months. Is planning on starting college in May. Good appetite, gain of 4 lb since last visit in July. Sleep is better. Assessment & Plan (08/14/2021 7:18 AM EDT): Difficulty focusing, zoning out- will change Adderall to extended release formulation. Med check in 4 weeks. Assessment & Plan (05/11/2021 1:26 PM EST): Increased Adderall today to 10 mg QD, med check in 3 months- ok to refill Assessment & Plan (04/03/2021 10:12 AM EST): Will restart stimulant therapy with Adderall 5mg as Stiven is concerned about future performance at his job and as he transitions to college. Med check in 4 weeks. Assessment & Plan (02/20/2021 11:23 AM EDT): Discussed issues with attention and focus. I advised starting med for anxiety and depression first as stimulant meds can increase anxiety symptoms. Will get update at med check in 4 weeks. Assessment & Plan (05/17/2019 3:56 PM EST): 05/20 stable not on meds doing better in school Assessment & Plan (05/16/2018 2:55 PM EST): 05/19/18: stable Depression 05/10/2016 Overview (08/14/2021): 05/20 better with group therapy, not on medications 08/13/21: fluoxetine increase from 30 to 40 mg and take at night Assessment & Plan (04/11/2022 5:05 PM EST): No concerns today= no med changes made. Ok to refill until ages out of the practice Assessment & Plan (02/05/2022 5:39 PM EDT): Will increase fluoxetine from 40 mg to 50 mg. Stiven also has concerns about bipolar symptoms- feels his mood swings are dramatic. Will explore options for adult psychiatry as he will be turning 22 in 4 months. Assessment & Plan (12/11/2021 10:06 AM EDT): Missed scheduled med check in August 2021. Did not increase from 30 to 40 mg as was discussed at July med check. Concerned about increase depression which worsened after having to quit his job. Will increase fluoxetine to 40 mg QD with med check in 2 months or sooner if there are increased concerns about his mental health. No safety concerns today Assessment & Plan (08/14/2021 7:29 AM EDT): PHQ 9 score elevated. No thought of self harm. Very tired and disrupted sleep schedule. Worries about bipolar symptoms with feeling good for few weeks then back to depression. No history of grandiosity. Continue to monitor. Will increase fluoxetine from 30 to 40 mg and take at night. Med check in 4 weeks Assessment & Plan (05/11/2021 1:26 PM EST): Increase fluoxetine to 30mg today. Med check in 3 months Assessment & Plan (04/03/2021 10:09 AM EST): Some reports of improvement since restart of fluoxetine- however PHQ-9 score slightly higher than last time- will increase to 20 mg QD- no self harm reported today. Med check in 4 weeks. Encouraged to call office with any interval concerns. Assessment & Plan (02/20/2021 11:34 AM EDT): Self reports feelings of depression. Has been off medication for a while. Was on sertraline. Reviewed growth charts -discussed weight loss. PHQ-9 elevated- would like to start meds. I advised fluoxetine 10 mg , call in 2 weeks and med check in 4 weeks. Discussed positive and potential negative side effects. Encouraged to call office, CRISIS or go to ER if feeling unsafe to self or if any concerns about mental health. Assessment & Plan (05/17/2019 3:56 PM EST): 05/20 better with group therapy, not on medications Assessment & Plan (05/16/2018 2:58 PM EST): Is Doing well now on seroquel and Wellbutrin. No SI, no crying, doing well in school. Allergic rhinitis 04/17/2015 Resolved Problems Problem Noted Date Diagnosed Date Resolved Date Closed nondisplaced avulsion fracture of lateral epicondyle of left humerus with routine healing 10/16/2017 05/16/2018 Reflux gastritis 08/30/2016 05/16/2018 Immunizations Immunization Administration Dates Next Due DTaP 08/01/2006, 3,2001, 002,2001 HPV Vaccine 9 Valent 10/16/2015,06/16/2015,04/13 Hep A, Adult 02/19/2021 Hep A, ped/adol 05/17/2019 Hep B, ped/adol 03/27/2002,2001,2001 Hib (PRP-T) 07/27/2007, 3,2001, 002,2001 IPV 08/01/2006, 2,2001, 002 MMR 07/27/2005,06/28/2002 Meningococcal Conj (Menactra) MCV4P 05/16/2018,0 09/03/2012 Pneumococcal Conjugate 10/02/2002,2001,2001, 002 Tdap 09/03/2012 Varicella 08/03/2007,06/28/2002 Family History Medical History Relation Name Comments Suicidality Mother Relation Name Status Comments Father Christopher Alive ADHD, drug minda ction Maternal Grandfather Alive drug an d alcohol addiction and hx of physical abuse. Maternal Grandmother Alive hyperli pidemia Mother bipolar, schizo phrenia, drug addiction Other Siblings: Paternal Grandfather Paternal Grandmother Alive Social History Tobacco Use Types Packs/Day Years Used Date Smoking Tobacco: Never Smokeless Tobacco: Never Alcohol Use Standard Drinks/Week Comments Yes 0 (1 standard drink = 0.6 oz pur e alcohol) occasional binging Hunger/Food Answer Date Recorded In the last 12 months, did y ou or your family ever eat less than you felt you should because there wasn't enough money for food? No 02/19/2021 Stable Housing Answer Date Recorded Are you worried that in the next 2 months you may not have stable housing? No 02/19/2021 Transportation Concerns Answer Date Rec orded In the last 12 months, have you or your family ever had to go without healthcare because you didn't have a way to get there? No 02/19/2021 Hazards in Home Answer Date Recorded Think about the place you li ve. Do you have problems with any of the following? Pests (mice or roaches), mold, no/not working smoke detectors, water leaks, no window guards. No 2020 Financing Utilities Answer Date Recorde d In the last 12 months, has t he electric, gas, oil, or water company threatened to shut off your services in your home? No 02/19/2021 Safety at Home Answer Date Recorded Are you or your family worried about feeling saf e in your home? No 02/19/2021 Outside Support Answer Date Recorded Do you feel that you need mo re support from other people or programs to help you care for yourself or your family? No 02/19/2021 Understanding Health Concerns Answer Da te Recorded Do you need help understandi ng your or your child's healthcare needs (diagnosis, medications, plan, etc.)? No 02/19/2021 Financing Health Concerns Answer Date R ecorded In the last 12 months, was t here a time when your child needed to see a doctor or get medications or supplies but could not because of cost? No 02/19/2021 Missing School or Work Answer Date Parth rded Did you or your child miss s chool or work because of a health problem that could have been avoided? No 02/19/2021 Sex and Gender Information Value Date Recorded Sex Assigned at Male 05/17/2019 3:53 PM EST Legal Sex Male 6:22 PM EDT Gender Identity Male 05/17/2019 3:53 PM EST Sexual Orientation Bisexual 02/19/2021 10 :18 AM EDT Last Filed Vital Signs Vital Sign Reading Time Taken Comments Blood Pressure 112/64 04/11/2022 3:37 PM EST Pulse - - Temperature 36.7 ??C (98 ??F) 02/04/2022 2:49 PM EDT Respiratory Rate - - Oxygen Saturation - - Inhaled Oxygen Concentration - - Weight 50.3 kg (111 lb) 04/11/2022 3:37 PM EST Height 165.1 cm (5' 5 ) 04/11/2022 3:37 PM EST Body Mass Index 18.47 04/11/2022 3:37 PM EST Plan of Treatment Health Maintenance Due Date Last Done Comments Men B Vaccine (1 of 2 - Standard) 2017 DTaP,Tdap,and Td Vaccines (7 - Td or Tdap) 09/03/2022 09/03/2012, 08/01/2006, 10/02/2002, Additional history exists Influenza Vaccines (#1) 2023 COVID-19 Vaccine ( - 2023-2 5 season) 2023 Hepatitis B Vaccines Completed 03/27/2002, 2001, 2001 Pneumococcal Vaccine Completed 10/02/2002, 2001, 2001, Additional history exists MMR Vaccines Completed 07/27/2005, 06/28/2002 IPV Vaccines Completed 08/01/2006, 03/02, 2001, Additional history exists HIB Vaccines Completed 07/27/2007, 07/2002, 2001, Additional history exists Varicella Vaccines Completed 08/03/2007, 06/28/2002 HPV Vaccines Completed 10/16/2015, 06/01, 04/13/2015 Meningococcal Vaccine Completed 05/16/2018, 013 Hepatitis A Vaccines Completed 02/19/2021, 05/17/19 20 Insurance [facility] NON PCC [facility] NON PCC Care Teams Director Physical Relationship Specialty Start Date End Date Maria Eugenia Arita MD PCP - General Pediatrics 02/19/21
--- OUTSIDE RECORDS SUMMARY | 2024-06-24 14:56 | XMS_ITS | Encounter Summary ---
Author Organization [facility] Address [address] [place], [place] [phone] Phone Care Team Providers Care Shop Supervisor Name Role Phone Maria Eugenia Arita MD Primary Care Provider Unavailabl e Encounter Details Date Type Department Care Team (Late st Contact Info) Description 09/17/2017 Conversion [facility]counter [facility] [address] [address] Tacos Anthony MD [address] [place] [id number] Social History Tobacco Use Types Packs/Day Years Used Date Smoking Tobacco: Never Assessed Sex and Gender Information Value Date Recorded Sex Assigned at Male 05/17/2019 3:53 PM EST Legal Sex Male 6:22 PM EDT Gender Identity Male 05/17/2019 3:53 PM EST Sexual Orientation Bisexual 02/19/2021 10 :18 AM EDT documented as of this encounter Plan of Treatment Not on file documented as of this encounter Visit Diagnoses Not on filedocumented in this encounter Care Teams Shop Supervisor Relationship Specialty Start Date End Date Maria Eugenia Arita MD PCP - General Pediatrics 02/19/21 documented as of this encounter
--- OUTSIDE RECORDS SUMMARY | 2024-06-24 14:56 | XMS_ITS | Encounter Summary ---
Author Organization [facility] Address [address] [place] [address] Phone Care Team Providers Care Roll Plugger Name Role Phone Maria Eugenia Arita MD Primary Care Provider Unavailabl e Reason for Visit * Reason Comments Med Refill Encounter Details Date Type Department Care Team (Late st Contact Info) Description 09/27/2021 [facility]ill [facility] [address] [address] Maria Eugenia Arita MD Depression, unspecified depression type; Anxiety Social History Tobacco Use Types Packs/Day Years [...] AM EDT documented as of this encounter Miscellaneous Notes * Telephone Encounter - Tacos Anthony MD - 09/30/2021 10:07 AM EDT Refused with message to call office. * Telephone Encounter - Leona Griffin MA - 09/30/2021 9:54 AM EDT Called again, NA and unable to LM Please refuse for now with a note to call us? * Telephone Encounter - Leona Griffin MA - 09/29/2021 4:11 PM EDT Called again, mailbox full * Telephone Encounter - Leona Griffin MA - 09/28/2021 10:15 AM EDT Call to [facility] Mailbox is full * Telephone Encounter - Tacos Anthony MD - 09/27/2021 11:[address] Arita's last note dose was increased to 40 mg and she requested a return for a med check in one month. Can you please check in with [facility] to see what dose he has been taking. I suspect this 10 mg request from pharmacy will not be needed if he will be taking two 20 mg pills now. Please have him schedule a med check with Dr Arita. If any refills are needed this week I can do, as Dr Arita is outof the office this week. * Telephone Encounter - Leona Griffin MA - 09/27/2021 10:20 AM EDT Refill request for Fluoxetine 10mg Last [facility] 02/19/21 Med check 08/13/21 Refilled 08/30/21 Please review documented in this encounter Plan of Treatment Not on file documented as of this encounter Visit Diagnoses Diagnosis Depression, unspecified depression type Anxiety Anxiety state, unspecified documented in this encounter Care Teams Roll Plugger Relationship Specialty Start Date End Date Maria Eugenia Arita MD PCP - General Pediatrics 02/19/21 documented as of this encounter
--- OUTSIDE RECORDS SUMMARY | 2024-06-24 14:56 | XMS_ITS | Encounter Summary ---
Author Organization [facility] Address [address] [place] [address] Phone Care Team Providers Care Deliverer Pharmacy Name Role Phone Maria Eugenia Arita MD Primary Care Provider Unavailabl e Reason for Visit * Reason Comments Med Refill Encounter Details Date Type Department Care Team (Late st Contact Info) Description 08/29/2021 [facility]ill [facility] [address] [address] Maria Eugenia Arita MD Depression, unspecified depression [...] encounter Miscellaneous Notes * Telephone Encounter - Maria Eugenia Arita MD - 08/30/2021 8:19 AM EDT Rx reviewed and ePrescribed * Telephone Encounter - Leona Griffin MA - 08/30/2021 8:13 AM EDT Refill request for FLuoxetine 10mg Last [facility] 02/19/21 Med check 08/13/21 Upcoming on 09/01/21 Refilled 08/02/21 Please review documented in this encounter Plan of Treatment Not on file documented as of this encounter Visit Diagnoses Diagnosis Depression, unspecified depression type Anxiety Anxiety state, unspecified documented in this encounter Care Teams Deliverer Pharmacy Relationship Specialty Start Date End Date Maria Eugenia Arita MD PCP - General Pediatrics 02/19/21 documented as of this encounter
--- OUTSIDE RECORDS SUMMARY | 2024-06-24 14:56 | XMS_ITS | Encounter Summary ---
Author Organization [facility] Address [address] [place] [address] Phone Care Team Providers Care Weight Guesser Name Role Phone Maria Eugenia Arita MD Primary Care Provider Unavailabl e Reason for Visit * Reason Comments Med Refill Encounter Details Date Type Department Care Team (Late st Contact Info) Description 01/12/2022 [facility]ill [facility] [address] [address] Maria Eugenia Arita MD Depression, unspecified depression type Social History Tobacco Use Types Packs/Day Years [...] Encounter - Maria Eugenia Arita MD - 01/12/2022 8:25 AM EDT Rx reviewed and ePrescribed * Telephone Encounter - Leona Griffin MA - 01/12/2022 8:07 AM EDT Refill request for Fluoxetine 40mg Last [facility] 02/19/21 Upcoming med check 02/04/22 Refilled 12/10/21 Please review documented in this encounter Plan of Treatment Not on file documented as of this encounter Visit Diagnoses Diagnosis Depression, unspecified depression type documented in this encounter Care Teams Weight Guesser Relationship Specialty Start Date End Date Maria Eugenia Arita MD PCP - General Pediatrics 02/19/21 documented as of this encounter
--- OUTSIDE RECORDS SUMMARY | 2024-06-24 14:56 | XMS_ITS | Encounter Summary ---
Author Organization [facility] Address [address] [place] [address] Phone Care Team Providers Care First Front Ventilator Name Role Phone Maria Eugenia Arita MD Primary Care Provider Unavailabl e Reason for Visit * Reason Comments Med Refill Encounter Details Date Type Department Care Team (Late st Contact Info) Description 05/17/2021 [facility]ill [facility] [address] [address] Maria Eugenia Arita MD Depression, unspecified depression [...] encounter Miscellaneous Notes * Telephone Encounter - Tiny Guardado NP - 05/17/2021 10:07 AM EST Sent rx at first but then quickly cancelled it as I noticed Dr. Arita sent a refill over at his visit on 05/10. * Telephone Encounter - Leona Griffin MA - 05/17/2021 7:37 AM EST Refill request for Fluoxetine 10mg Last [facility] 02/19/21 Med check was 05/10/21 Upcoming on 08/13/21 Please review documented in this encounter Plan of Treatment Not on file documented as of this encounter Visit Diagnoses Diagnosis Depression, unspecified depression type Anxiety Anxiety state, unspecified documented in this encounter Care Teams First Front Ventilator Relationship Specialty Start Date End Date Maria Eugenia Arita MD PCP - General Pediatrics 02/19/21 documented as of this encounter
--- OUTSIDE RECORDS SUMMARY | 2024-06-24 14:56 | XMS_ITS | Encounter Summary ---
Author Organization [facility] Address [address] [place] [address] Phone Care Team Providers Care Construction Project Assistant Name Role Phone Maria Eugenia Arita MD Primary Care Provider Unavailabl e Reason for Visit * Reason Comments Med Refill Encounter Details Date Type Department Care Team (Late st Contact Info) Description 07/05/2022 [facility]ill [facility] [address] [address] Natalie Pan MD [address] [place] [phone] Depression, unspecified depression type Social History Tobacco [...] encounter Miscellaneous Notes * Telephone Encounter - Ntaalie Pan MD - 07/06/2022 1:08 PM EST Rx sent with refills as he was stable at last visit 04/21. He will need to obtain medication from an adult physician from now on. * Telephone Encounter - Leona Griffin MA - 07/05/2022 7:17 PM EST Refill request for Fluoxetine 40mg Aged out 2022 Last [facility] 02/19/21 Last med check 04/11/22 Refilled 02/14/22 3 refills Over due for [facility] Call to OLVIN Saleem to see if set up with adult PCP yet Please review documented in this encounter Plan of Treatment Not on file documented as of this encounter Visit Diagnoses Diagnosis Depression, unspecified depression type documented in this encounter Care Teams Construction Project Assistant Relationship Specialty Start Date End Date Maria Eugenia Arita MD PCP - General Pediatrics 02/19/21 documented as of this encounter
--- OUTSIDE RECORDS SUMMARY | 2024-06-24 14:56 | XMS_ITS | Encounter Summary ---
Author Organization [facility] Address [address] [place] [address] Phone Care Team Providers Care Director Financial Systems Name Role Phone Maria Eugenia Arita MD Primary Care Provider Unavailabl e Reason for Visit * Reason Comments Med Refill Encounter Details Date Type Department Care Team (Late st Contact Info) Description 02/13/2022 [facility]ill [facility] [address] [address] Maria Eugenia Arita MD Depression, unspecified depression [...] encounter Miscellaneous Notes * Telephone Encounter - Sonal Hancock CMA - 02/14/2022 10:40 AM EDT Images from the original note were not included. Natalie Pan MD You 21 minutes ago (10:17 AM) RACHEAL It looks like Dr. Arita refilled this last week Pt takes 10mg and 40mg 10mg was filled last week, per below last refill for the 40mg was 01/12/22 * Telephone Encounter - Sonal Hancock CMA - 02/14/2022 10:06 AM EDT Refill request for fluoxetine 40mg Last refill 01/12/22 Last [facility] 02/04/22 Last [facility] 02/19/21 documented in this encounter Plan of Treatment Not on file documented as of this encounter Visit Diagnoses Diagnosis Depression, unspecified depression type documented in this encounter Care Teams Director Financial Systems Relationship Specialty Start Date End Date Maria Eugenia Arita MD PCP - General Pediatrics 02/19/21 documented as of this encounter
== END 2024-06-24 13:41 | disposition home or self-care (01) ==
PROVIDERS: PCP Nurse Practitioner Family; Visit Provider Nurse Practitioner Family
DX: F90.0 Attention-deficit hyperactivity disorder, predominantly inattentive type (principal); F41.1 Generalized anxiety disorder; F33.1 Major depressive disorder, recurrent, moderate; F12.90 Cannabis use, unspecified, uncomplicated; E55.9 Vitamin D deficiency, unspecified

== ENCOUNTER → 2024-06-24 13:06 | Outpatient (BNVA) | payer OTHER, SELFPAY | PROVIDERS: PCP Nurse Practitioner Family; Visit Provider Nurse Practitioner Family | DX: F90.0 Attention-deficit hyperactivity disorder, predominantly inattentive type (principal); F41.1 Generalized anxiety disorder; F33.1 Major depressive disorder, recurrent, moderate; E55.9 Vitamin D deficiency, unspecified; F12.90 Cannabis use, unspecified, uncomplicated | CPT/HCPCS: 96127; 99212 ==

== ENCOUNTER 2024-08-01 10:31 | Outpatient (AMB) | payer OTHER, SELFPAY ==
--- NOTE | 2024-08-01 10:34 | A.OFFPC_ITS ---
Vital Signs 08/01/24 10:38 Height 5 ft 5 in Weight 157 lb 4 oz BMI 26.2 BP 112/68 Blood Pressure Location Rt brachial Position Sitting Respiration 12 Pulse 82 Pulse Source Pulse Oximeter Temp 97.4 F Temp Source Oral Pulse Oximetry (%) 98 Oxygen Delivery Method Room Air Intake Visit Reasons: mo 30 min med chk Intake Note: Follow up on med check Casting Associate Required: No Allergies No Known Allergies Allergy (Verified 08/01/24 10:46) Medication List - Last Reconciled 08/01/24 by YASHIRA CastroP- atomoxetine 80 mg PO DAILY cholecalciferol (vitamin D3) 50 mcg PO DAILY dextroamphetamine-amphetamine 10 mg (Adderall) 15 mg (1.5 x 10 mg) PO DAILY escitalopram oxalate (Lexapro) 20 mg PO DAILY Tobacco use date assessed: 06/24/24 Dental Screening Dental Screen Date: 08/01/24 Did you have a dental visit in the last 12 months?: Yes Did you have a dental problem in the last 6 months where you did not have access to dental care?: No Was dental information given to patient?: Patient has dentist HPI HPI Comments History of Present Illness0 Details 24 y/o M with Vit D def, ADD, MDD, kyaw , marijuana use Family hx: Mom suicide/substance abuse; Dad alive lives in [place] with his parents, hx of drug abuse sober for 16 years, Maternal grandparents alive Specialists Counselor - not active Dermatology - not active Health Maintenance: declined flu Tdap 03/18/24 Here today for a routine follow up of generalized anxiety disorder, major depressive disorder and ADHD. At the last office visit his Strattera was increased to 80 mg to help breakthrough ADHD symptoms. There were no changes in his Adderall dosing. There was also no changes in his Lexapro dosing at that time. He was once again encouraged to seek care with a counselor. He presents today and tells me that he stopped taking the Strattera 10 days after the last office visit as he felt like it did nothing for him. He did not alert me or consult need prior to stopping this. He was once again asking for an increase in his Adderall. He reports that he continues to take Lexapro. He did start his vitamin-D supplementation which was prescribed for a vitamin-D deficiency. He continues to report depression anxiety and ADHD symptoms. His weight is stable. He denies SI and HI. Cont to use marijuana Exam: Awake alert, pleasant & cooperative RRR LS CTAB Flat affect, anxious Plan: Brief intervention with the community navigation team was had. The plan will be to have him seek care with a psychiatrist for further management of his mental health. I have consulted with the adult bridge program previously who made medication recommendations. Unfortunately the patient is not following through on my recommendations for treatment. He stopped his Strattera cold turkey without consulting me. And he persistently asked for increased doses of Adderall. He has been educated multiple times about the proper use of stimulants in the risk for misuse and abuse. He needs to establish care with a counselor to help to work through his complex past. He was agreeable to see an outside psychiatrist who will permanently manage his mental health conditions. I will continue to care for him from a primary care standpoint and recommend him follow up with me in a few months with a complete physical exam and as needed in between. Patient understands. As at this time I have refilled his medications as is with no dose changes I have not we felt the Strattera as he stopped taking it. This note is constructed using voice recognition software. While every effort has been made to ensure accuracy in scooping machine tender, still errors may have been included Sometimes, these errors may affect the content or meaning of the given sentence . Total time spent caring for the patient today was 31 minutes. This includes time spent before the visit reviewing the chart, time spent during the visit, and time spent after the visit on documentation, reviewing laboratory results, diagnostic imaging, medications, performing a medically necessary evaluation, counseling on diagnoses, care coordination, ordering appropriate tests, ordering appropriate medications, review of tests performed by other providers, reporting test results with the patient, communication with other healthcare providers. [facility] Medical History (Updated 05/15/24 @ 10:49 by YVONNE Castro) Anxiety Depression Family History (Updated 06/05/23 @ 11:16 by LAUREN Whitehead) Mother Asthma Psychiatric diagnosis Social History Housing: House Patient Tobacco Use Status: Never used Tobacco e-Cigarette/Vaping Use: Never Used Second Hand Smoke Exposure: No service: No Current occupational status: unemployed Cognitive needs: No Hearing needs: No Vision needs: No Questionnaire Thrive Questionnaire Date Thrive assessed: 08/01/24 I am a: Patient What is your living situation today?: I have a steady place to live Within the past 12 months, did the food you bought not last and you didn't have the money to get more?: Never true Within the past 12 months, did you worry whether your food would run out before you got money to buy more?: Never true Do you have trouble paying for medicines?: No Do you have trouble getting transportation to medical appointments?: No Do you have trouble paying your heating and electricity bill?: No Do you have trouble taking care of your child, family member or friend?: No Do you have trouble with day-to-day activities such as bathing, preparing meals, shopping, managing finances, etc.?: No Are you currently unemployed and looking for a job?: No Are you interested in more education?: No Please select the resources that you would like help with: None Currently or been in a relationship where the following occur: No concerns reported THRIVE Score: 0 KYAW-7 AMB Questionnaire KYAW-7 Date KYAW - 7 assessed: 06/24/24 Source: Developed by Drs. Tacos Decker, Yina Eisenberg, Jovany Chatman and colleagues, with an educational quinton from [employer]. Physical exam (Primary Care) Vital Signs: Last Vital Signs Temp 97.4 F 08/01/24 10:38 Pulse 82 08/01/24 10:38 Resp 12 08/01/24 10:38 BP 112/68 08/01/24 10:38 Pulse Ox 98 08/01/24 10:38 Oxygen Delivery Method Room Air 08/01/24 10:38 BMI result Body Mass Index 26.2 Tobacco/Smoking Status: Tobacco use Status Tobacco use date assessed 06/24/24 08/01/24 10:34 Patient Tobacco Use Status Never used Tobacco 08/01/24 10:34 e-Cigarette/Vaping Use Never Used 08/01/24 10:34 Thrive Assessment: Date of Thrive Assessment Date Thrive assessed 08/01/24 08/01/24 10:34 Currently or been in a relationship where the following occur: No concerns reported Coding Level of Care Code Est Pt Level 4 (30708) Complex EM visit Add On G2211 Diagnoses Moderate episode of recurrent major depressive disorder F33.1 Major depression recurrence: recurrent Active/Remission status: currently active Major depression episode severity: moderate KYAW (generalized anxiety disorder) F41.1 Attention deficit hyperactivity disorder (ADHD), predominantly inattentive type F90.0 Attention deficit-hyperactivity disorder type: predominantly inattentive Vitamin D deficiency E55.9 Marijuana use F12.90 Assessment & Plan Assessment & Plan (1) MDD (major depressive disorder): Comment: Has tried sertraline and fluoxetine in the past Was a pathways program for his depression Code(s): F32.9 - Major depressive disorder, single episode, unspecified Category: Medical Qualifiers: Major depression recurrence: recurrent Active/Remission status: currently active Major depression episode severity: moderate Qualified Code(s): F33.1 - Major depressive disorder, recurrent, moderate (2) KYAW (generalized anxiety disorder): Code(s): F41.1 - Generalized anxiety disorder Category: Medical (3) ADHD: Code(s): F90.9 - Attention-deficit hyperactivity disorder, unspecified type Category: Medical Qualifiers: Attention deficit-hyperactivity disorder type: predominantly inattentive Qualified Code(s): F90.0 - Attention-deficit hyperactivity disorder, predominantly inattentive type (4) Vitamin D deficiency: Code(s): E55.9 - Vitamin D deficiency, unspecified Category: Medical (5) Marijuana use: Code(s): F12.90 - Cannabis use, unspecified, uncomplicated Category: Medical Plan . Orders: Referrals Nurse Navigator Referral F33.1 - Major depressive disorder, recurrent, moderate, F41.1 - Generalized anxiety disorder, F90.0 - Attention-deficit hyperactivity disorder, predominantly inattentive type Medications: Refilled dextroamphetamine-amphetamine 10 mg (Adderall) Partial Fill upon patient request. 15 mg (1.5 x 10 mg) PO DAILY 45 tabs 0RF Discontinued atomoxetine Discontinued Reason: Patient no longer taking 80 mg PO DAILY 90 caps 0RF
[2024-08-01 10:38] VITALS: BP 112/68; PULSE 82; RESP 12; TEMP 36.3; O2SAT 98; BMI 26.2
--- OUTSIDE RECORDS SUMMARY | 2024-08-01 11:38 | XMS_ITS | Encounter Summary ---
Author Organization [facility] Address [address] [place] [address] Phone Care Team Providers Care Hat Former Name Role Phone Maria Eugenia Arita MD Primary Care Provider Unavailabl e Reason for Visit * Reason Comments Med Refill Encounter Details Date Type Department Care Team (Late st Contact Info) Description 01/12/2022 [facility]ill [facility] [address] [address] Maria Eugenia Arita MD Depression, unspecified depression [...] type documented in this encounter Care Teams Hat Former Relationship Specialty Start Date End Date Maria Eugenia Arita MD PCP - General Pediatrics 02/19/21 documented as of this encounter
--- OUTSIDE RECORDS SUMMARY | 2024-08-01 11:38 | XMS_ITS | Encounter Summary ---
Author Organization [facility] Address [address] [place] [phone] Phone Care Team Providers Care Soakers Supervisor Name Role Phone Maria Eugenia Arita MD Primary Care Provider Unavailabl e Reason for Visit * Reason Comments Med Refill Encounter Details Date Type Department Care Team (Late st Contact Info) Description 02/13/2022 [facility]ill [facility] [address] [address] Maria Eugenia Arita MD Depression, unspecified depression [...] type documented in this encounter Care Teams Soakers Supervisor Relationship Specialty Start Date End Date Maria Eugenia Arita MD PCP - General Pediatrics 02/19/21 documented as of this encounter
--- OUTSIDE RECORDS SUMMARY | 2024-08-01 11:38 | XMS_ITS | Encounter Summary ---
Author Organization [facility] Address [address] [place] [address] Phone Care Team Providers Care Polymerization Oven Operator Name Role Phone Maria Eugenia Arita MD Primary Care Provider Unavailabl e Reason for Visit * Reason Comments Med Refill Encounter Details Date Type Department Care Team (Late st Contact Info) Description 07/05/2022 [facility]ill [facility] [address] [address] Natalie Pan MD [address] [place] [phone] Depression, unspecified depression type Social History Tobacco [...] encounter Miscellaneous Notes * Telephone Encounter - Natalie Pan MD - 07/06/2022 1:08 PM EST [...] Refilled 02/14/22 3 refills Over due for [facility] Call to OLVIN Saleem to see if set up with adult PCP yet Please review documented in this encounter Plan of Treatment Not on file documented as of this encounter Visit Diagnoses Diagnosis Depression, unspecified depression type documented in this encounter Care Teams Polymerization Oven Operator Relationship Specialty Start Date End Date Maria Eugenia Arita MD PCP - General Pediatrics 02/19/21 documented as of this encounter
--- OUTSIDE RECORDS SUMMARY | 2024-08-01 11:39 | XMS_ITS | Encounter Summary ---
Author Organization [facility] Address [address] [place] [address] Phone Care Team Providers Care Insulation Board Calender Operator Name Role Phone Maria Eugenia Arita MD Primary Care Provider Unavailabl e Reason for Visit * Reason Comments Med Refill Encounter Details Date Type Department Care Team (Late st Contact Info) Description 05/17/2021 [facility]ill [facility] [address] [address] Maria Eugenia Arita MD Depression, unspecified depression [...] EST Refill request for Fluoxetine 10mg Last [facility] 02/19/21 Med check was 05/10/21 Upcoming on 08/13/21 Please review documented in this encounter Plan of Treatment Not on file documented as of this encounter Visit Diagnoses Diagnosis Depression, unspecified depression type Anxiety Anxiety state, unspecified documented in this encounter Care Teams Insulation Board Calender Operator Relationship Specialty Start Date End Date Maria Eugenia Arita MD PCP - General Pediatrics 02/19/21 documented as of this encounter
--- OUTSIDE RECORDS SUMMARY | 2024-08-01 11:39 | XMS_ITS | Encounter Summary ---
Author Organization [facility] Address [address] [place] [address] Phone Care Team Providers Care Client Integration Manager Name Role Phone Maria Eugenia Arita MD Primary Care Provider Unavailabl e Reason for Visit * Reason Comments Med Refill Encounter Details Date Type Department Care Team (Late st Contact Info) Description 08/29/2021 [facility]ill [facility] [address] [address] Maria Eugenia Arita MD Depression, unspecified depression [...] EDT Refill request for FLuoxetine 10mg Last [facility] 02/19/21 Med check 08/13/21 Upcoming on 09/01/21 Refilled 08/02/21 Please review documented in this encounter Plan of Treatment Not on file documented as of this encounter Visit Diagnoses Diagnosis Depression, unspecified depression type Anxiety Anxiety state, unspecified documented in this encounter Care Teams Client Integration Manager Relationship Specialty Start Date End Date Maria Eugenia Arita MD PCP - General Pediatrics 02/19/21 documented as of this encounter
--- OUTSIDE RECORDS SUMMARY | 2024-08-01 11:39 | XMS_ITS | Encounter Summary ---
Author Organization [facility] Address [address] [place] [address] Phone Care Team Providers Care Armor Senior Sergeant Name Role Phone Maria Eugenia Arita MD Primary Care Provider Unavailabl e Reason for Visit * Reason Comments Med Refill Encounter Details Date Type Department Care Team (Late st Contact Info) Description 09/27/2021 [facility]ill [facility] [address] [address] Maria Eugenia Arita MD Depression, unspecified depression [...] EDT Refill request for Fluoxetine 10mg Last [facility] 02/19/21 Med check 08/13/21 Refilled 08/30/21 Please review documented in this encounter Plan of Treatment Not on file documented as of this encounter Visit Diagnoses Diagnosis Depression, unspecified depression type Anxiety Anxiety state, unspecified documented in this encounter Care Teams Armor Senior Sergeant Relationship Specialty Start Date End Date Maria Eugenia Arita MD PCP - General Pediatrics 02/19/21 documented as of this encounter
--- OUTSIDE RECORDS SUMMARY | 2024-08-01 11:39 | XMS_ITS | Clinical Summary ---
Author Organization [facility] Address [address] [place] [phone] Phone Care Team Providers Care Computer Support Analyst Name Role Phone Maria Eugenia Arita MD [...] A Vaccines Completed 02/19/2021, 05/17/19 20 Insurance [facility] NON PCC [facility] NON PCC Care Teams Computer Support Analyst Relationship Specialty Start Date End Date Maria Eugenia Arita MD PCP - General Pediatrics 02/19/21
--- OUTSIDE RECORDS SUMMARY | 2024-08-01 11:39 | XMS_ITS | Encounter Summary ---
Author Organization [facility] Address [address] [place], [place] [phone] Phone Care Team Providers Care Boiler Installer Name Role Phone Maria Eugenia Arita MD Primary Care Provider Unavailabl e Encounter Details Date Type Department Care Team (Late st Contact Info) Description 09/17/2017 [facility]counter [facility] [address] [address] Tacos Anthony MD [address] [place] [phone] Social History Tobacco Use Types Packs/Day Years [...] on filedocumented in this encounter Care Teams Boiler Installer Relationship Specialty Start Date End Date Maria Eugenia Arita MD PCP - General Pediatrics 02/19/21 documented as of this encounter
== END 2024-08-01 11:03 | disposition home or self-care (01) ==
LOC: HO.HMCFM 10:31
PROVIDERS: PCP Nurse Practitioner Family; Visit Provider Nurse Practitioner Family
DX: F33.1 Major depressive disorder, recurrent, moderate (principal); F41.1 Generalized anxiety disorder; F90.0 Attention-deficit hyperactivity disorder, predominantly inattentive type; E55.9 Vitamin D deficiency, unspecified; F12.90 Cannabis use, unspecified, uncomplicated

== ENCOUNTER → 2024-08-01 10:31 | Outpatient (BNVA) | payer OTHER, SELFPAY | PROVIDERS: PCP Nurse Practitioner Family; Visit Provider Nurse Practitioner Family | DX: F33.1 Major depressive disorder, recurrent, moderate (principal); F41.1 Generalized anxiety disorder; F90.0 Attention-deficit hyperactivity disorder, predominantly inattentive type; E55.9 Vitamin D deficiency, unspecified; F12.90 Cannabis use, unspecified, uncomplicated; Z79.899 Other long term (current) drug therapy | CPT/HCPCS: 99212 ==

== ENCOUNTER 2024-08-08 14:04 | Outpatient (AMB) | payer OTHER, SELFPAY ==
--- NOTE | 2024-08-08 14:31 | MHC.OFFVISPS ---
Intake Intake Visit Reasons: consultation Silver Recovery Operator Required: No Allergies No Known Allergies Allergy (Verified 08/01/24 10:46) Medication List - Last Reconciled 08/08/24 by Brenda Fink APRN cholecalciferol (vitamin D3) 50 mcg PO DAILY dextroamphetamine-amphetamine 10 mg (Adderall) 15 mg (1.5 x 10 mg) PO DAILY escitalopram oxalate (Lexapro) 20 mg PO DAILY HPI- Psychiatric Chief Complaint: consultation HPI Narrative: pt is a 24 yo with a long history of depression and ADHD referred by his PCP for evaluation of medications and medication optimization. 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 Pts PHQ9= 10 and his GAD7= 7 He reports the difficulty focusing is the hardest symptoms for him as it inteferes with his functioning at home and work and school when he is in school. 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 He was essentially raised by his grandparents. He was diagnosed as a teen with ADHD. He saw a therapist as a child but stopped when he turned 18. He denies SI or Hi currently. He reports hypersomnia sleeping up to 14 hours a day; he reports he thinks lexapro helping his depression. reports strattera didnt help his ADHD, reports adderall helps his attention. reports past failed trials of prozac and concerta. Past Psychiatric History: 2 IPL[facility] as a child [facility]- due to depression triggered by hte loss of his mother from overdose when he was 15 and then the loss of BF who had become fther figure approximately a year later. Outpatient meds and therapy as child and teen Subjective Subjective Subjective Medication Compliance: Intermittent Side effects from medications: Yes Review of Systems Medical Review of Systems: unchanged Mental Status Exam Mental Status Exam Patient Appearance: Well Grooomed, Fatigued, Disheveled and Inappropriate Patient Orientation: Person, Place, Time and Situation Level of Consciousness: Awake Patient Behavior: Appropriate Mood Description: Anxious and Sad Affect Description: Anxious and Sad Patient Cognition Impaired: No Ability to Follow Directions: Good Speech Pattern: Clear Memory Description: Intact Hallucinations: None Delusions: Not Present Thought Process: Intact and Distracted Thought Content: positive for Intact and positive for Spangler Judgement: Fair Results Reviewed Results Reviewed: pt had EKG and ekg shows normal sinus and HR 87 Assessment and Plan Assessment & Plan (1) MDD (major depressive disorder): Status: Acute Qualifiers: Major depression recurrence: recurrent Active/Remission status: currently active Major depression episode severity: moderate Qualified Code(s): F33.1 - Major depressive disorder, recurrent, moderate Code(s): F32.9 - Major depressive disorder, single episode, unspecified (2) KYAW (generalized anxiety disorder): Status: Acute Code(s): F41.1 - Generalized anxiety disorder (3) ADHD: Status: Acute Qualifiers: Attention deficit-hyperactivity disorder type: predominantly inattentive Qualified Code(s): F90.0 - Attention-deficit hyperactivity disorder, predominantly inattentive type Code(s): F90.9 - Attention-deficit hyperactivity disorder, unspecified type Plan rule out PTSD discussed need for therapy with patient and he says he is willing agrees to get EKG continue lexarpo 20mg daily and start adderall xr 20mg daily may take addeerall 10 mg in afternoon if working late shift. retrun in 3-4 weeks Orders: Orders ECG 12 lead EKG 08/08/24 F90.0 - Attention-deficit hyperactivity disorder, predominantly inattentive type, R00.0 - Tachycardia, unspecified Counseling and coordination of Care Pt. Self Management counseling: Maintenance-social rhythm, Mod caffeine/ETOH intake, Nutrition education and improvement, Sleep hygiene, Behavior activation and General coping skills Medication management counseling: Effectiveness, Side effects, Dosing range, Duration, Drug interaction and Adherence Diagnosis and Prognosis Counseling: Accuracy of diagnosis, Prognosis over time, Impact of diagnosis on life functions, Impact of family relationship, Problematic behaviors secondary to diagnosis and Adequacy of current interventions Details: I spent 75 minutes reviewing the record, seeing the patient and documenting in the medical record. Counseling provided to the patient/caregiver as outlined below. Addressed patient/caregiver concerns regarding current medication regime including effective adherence. Addressed patient/caregiver concerns regarding diagnosis and prognosis including accuracy of diagnosis, prognosis over time, impact of diagnosis. Addressed patient/caregiver concerns regarding impact of recent stressors. [facility] Medical History (Updated 05/15/24 @ 10:49 by CHAPO Castro-) Depression Anxiety Family History (Updated 06/05/23 @ 11:16 by LAUREN Whitehead) Mother Asthma Psychiatric diagnosis Social History Housing: House Patient Tobacco Use Status: Never used Tobacco e-Cigarette/Vaping Use: Never Used Second Hand Smoke Exposure: No service: No Current occupational status: unemployed Cognitive needs: No Hearing needs: No Vision needs: No Social History: lives with grandparents who are in their 60s. parents were in and had pt when they were young around age 20. parents unable to care for pt due to drug use and grandparents got custody. Substance History: Pt episodic ETOH use. most 12 pack beer in a week. Uses THC mostly daily in [place]. no other drug use Trauma History: yes Coding Level of Care Code Psych Diag Eval w/Med (77541) Diagnoses Moderate episode of recurrent major depressive disorder F33.1 Major depression recurrence: recurrent Active/Remission status: currently active Major depression episode severity: moderate KYAW (generalized anxiety disorder) F41.1 Attention deficit hyperactivity disorder (ADHD), predominantly inattentive type F90.0 Attention deficit-hyperactivity disorder type: predominantly inattentive
--- OUTSIDE RECORDS SUMMARY | 2024-08-08 16:52 | XMS_ITS | Clinical Summary ---
Author Organization [facility] Address [address] [place] [phone] Phone Care Team Providers Care Technical Training Specialist Name Role Phone Maria Eugenia Arita MD [...] A Vaccines Completed 02/19/2021, 05/17/19 20 Insurance [facility] NON PCC [facility] NON PCC Care Teams Technical Training Specialist Relationship Specialty Start Date End Date Maria Eugenia Arita MD PCP - General Pediatrics 02/19/21
--- OUTSIDE RECORDS SUMMARY | 2024-08-08 16:52 | XMS_ITS | Encounter Summary ---
Author Organization [facility] Address [address] [place] [address] Phone Care Team Providers Care Cognos Bi Developer Name Role Phone Maria Eugenia Arita MD Primary Care Provider Unavailabl e Reason for Visit * Reason Comments Med Refill Encounter Details Date Type Department Care Team (Late st Contact Info) Description 07/05/2022 [facility]ill [facility] [address] [address] Natalie Pan MD [address] [place] [address] Depression, unspecified depression type Social History Tobacco [...] Refilled 02/14/22 3 refills Over due for [facility] Call to OLVIN Saleem to see if set up with adult PCP yet Please review documented in this encounter Plan of Treatment Not on file documented as of this encounter Visit Diagnoses Diagnosis Depression, unspecified depression type documented in this encounter Care Teams Cognos Bi Developer Relationship Specialty Start Date End Date Maria Eugenia Arita MD PCP - General Pediatrics 02/19/21 documented as of this encounter
--- OUTSIDE RECORDS SUMMARY | 2024-08-08 16:52 | XMS_ITS | Encounter Summary ---
Author Organization [facility] Address [address] [place] [phone] Phone Care Team Providers Care Box Sealing Machine Catcher Name Role Phone Maria Eugenia Arita MD Primary Care Provider Unavailabl e Reason for Visit * Reason Comments Med Refill Encounter Details Date Type Department Care Team (Late st Contact Info) Description 05/17/2021 [facility]ill [facility] [address] [address] Maria Eugenia Arita MD Depression, unspecified depression [...] EST Refill request for Fluoxetine 10mg Last [facility] 02/19/21 Med check was 05/10/21 Upcoming on 08/13/21 Please review documented in this encounter Plan of Treatment Not on file documented as of this encounter Visit Diagnoses Diagnosis Depression, unspecified depression type Anxiety Anxiety state, unspecified documented in this encounter Care Teams Box Sealing Machine Catcher Relationship Specialty Start Date End Date Maria Eugenia Arita MD PCP - General Pediatrics 02/19/21 documented as of this encounter
--- OUTSIDE RECORDS SUMMARY | 2024-08-08 16:52 | XMS_ITS | Encounter Summary ---
Author Organization [facility] Address [address] [place] [phone] Phone Care Team Providers Care Taxi Driver Name Role Phone Maria Eugenia Arita MD Primary Care Provider Unavailabl e Reason for Visit * Reason Comments Med Refill Encounter Details Date Type Department Care Team (Late st Contact Info) Description 02/13/2022 [facility]ill [facility] [address] [address] Maria Eugenia Arita MD Depression, unspecified depression [...] type documented in this encounter Care Teams Taxi Driver Relationship Specialty Start Date End Date Maria Eugenia Arita MD PCP - General Pediatrics 02/19/21 documented as of this encounter
--- OUTSIDE RECORDS SUMMARY | 2024-08-08 16:52 | XMS_ITS | Encounter Summary ---
Author Organization [facility] Address [address] [place] [address] Phone Care Team Providers Care Sports Umpire Name Role Phone Maria Eugenia Arita MD Primary Care Provider Unavailabl e Reason for Visit * Reason Comments Med Refill Encounter Details Date Type Department Care Team (Late st Contact Info) Description 09/27/2021 [facility]ill [facility] [address] [address] Maria Eugenia Arita MD Depression, unspecified depression [...] EDT Refill request for Fluoxetine 10mg Last [facility] 02/19/21 Med check 08/13/21 Refilled 08/30/21 Please review documented in this encounter Plan of Treatment Not on file documented as of this encounter Visit Diagnoses Diagnosis Depression, unspecified depression type Anxiety Anxiety state, unspecified documented in this encounter Care Teams Sports Umpire Relationship Specialty Start Date End Date Maria Eugenia Arita MD PCP - General Pediatrics 02/19/21 documented as of this encounter
--- OUTSIDE RECORDS SUMMARY | 2024-08-08 16:52 | XMS_ITS | Encounter Summary ---
Author Organization [facility] Address [address] [place] [phone] Phone Care Team Providers Care Musculoskeletal Physician Name Role Phone Maria Eugenia Arita MD Primary Care Provider Unavailabl e Reason for Visit * Reason Comments Med Refill Encounter Details Date Type Department Care Team (Late st Contact Info) Description 08/29/2021 [facility]ill [facility] [address] [address] Maria Eugenia Arita MD Depression, unspecified depression [...] EDT Refill request for FLuoxetine 10mg Last [facility] 02/19/21 Med check 08/13/21 Upcoming on 09/01/21 Refilled 08/02/21 Please review documented in this encounter Plan of Treatment Not on file documented as of this encounter Visit Diagnoses Diagnosis Depression, unspecified depression type Anxiety Anxiety state, unspecified documented in this encounter Care Teams Musculoskeletal Physician Relationship Specialty Start Date End Date Maria Eugenia Arita MD PCP - General Pediatrics 02/19/21 documented as of this encounter
--- OUTSIDE RECORDS SUMMARY | 2024-08-08 16:52 | XMS_ITS | Encounter Summary ---
Author Organization [facility] Address [address] [place] [phone] Phone Care Team Providers Care Leather Goods Assembler Name Role Phone Maria Eugenia Arita MD Primary Care Provider Unavailabl e Reason for Visit * Reason Comments Med Refill Encounter Details Date Type Department Care Team (Late st Contact Info) Description 01/12/2022 [facility]ill [facility] [address] [address] Maria Eugenia Arita MD Depression, unspecified depression [...] type documented in this encounter Care Teams Leather Goods Assembler Relationship Specialty Start Date End Date Maria Eugenia Arita MD PCP - General Pediatrics 02/19/21 documented as of this encounter
--- OUTSIDE RECORDS SUMMARY | 2024-08-08 16:52 | XMS_ITS | Encounter Summary ---
Author Organization [facility] Address [address] [place], [place] [phone] Phone Care Team Providers Care White Spooler Name Role Phone Maria Eugenia Arita MD Primary Care Provider Unavailabl e Encounter Details Date Type Department Care Team (Late st Contact Info) Description 09/17/2017 [facility]counter [facility] [address] [address] Tacos Anthony MD [address] [place] [address] Social History Tobacco Use Types Packs/Day Years [...] on filedocumented in this encounter Care Teams White Spooler Relationship Specialty Start Date End Date Maria Eugenia Arita MD PCP - General Pediatrics 02/19/21 documented as of this encounter
== END 2024-08-08 17:40 | disposition home or self-care (01) ==
LOC: HO.HOP 14:04
PROVIDERS: PCP Nurse Practitioner Family; Visit Provider Clinical Nurse Specialist Psychiatric/Mental Health
DX: F33.1 Major depressive disorder, recurrent, moderate (principal); F41.1 Generalized anxiety disorder; F90.0 Attention-deficit hyperactivity disorder, predominantly inattentive type
CPT/HCPCS: 90792

== ENCOUNTER → 2024-08-08 14:04 | Outpatient (REF) | payer OTHER, SELFPAY ==
--- NOTE | 2024-08-08 15:23 | ECG_ITS ---
Test Reason : tachy Blood Pressure : */* mmHG Vent. Rate : 87 BPM Atrial Rate : 87 BPM P-R Int : 132 ms QRS Dur : 102 ms QT Int : 360 ms P-R-T Axes : 62 64 64 degrees QTcB Int : 433 ms Normal sinus rhythm Incomplete right bundle branch block Borderline ECG No previous ECGs available Referred By: Brenda Fink Electronically Signed By: Parag Wheeler
--- OUTSIDE RECORDS SUMMARY | 2024-08-08 17:39 | XMS_ITS | Encounter Summary ---
Author Organization [facility] Address [address] [place] [address] Phone Care Team Providers Care Hot Plate Plywood Press Feeder Name Role Phone Maria Eugenia Arita MD Primary Care Provider Unavailabl e Reason for Visit * Reason Comments Med Refill Encounter Details Date Type Department Care Team (Late st Contact Info) Description 02/13/2022 [facility]ill [facility] [address] [address] Maria Eugenia Arita MD Depression, unspecified depression [...] type documented in this encounter Care Teams Hot Plate Plywood Press Feeder Relationship Specialty Start Date End Date Maria Eugenia Arita MD PCP - General Pediatrics 02/19/21 documented as of this encounter
--- OUTSIDE RECORDS SUMMARY | 2024-08-08 17:39 | XMS_ITS | Encounter Summary ---
Author Organization [facility] Address [address] [place] [address] Phone Care Team Providers Care Jv Baseball Coach Name Role Phone Maria Eugenia Arita MD Primary Care Provider Unavailabl e Reason for Visit * Reason Comments Med Refill Encounter Details Date Type Department Care Team (Late st Contact Info) Description 05/17/2021 [facility]ill [facility] [address] [address] Maria Eugenia Arita MD Depression, unspecified depression [...] EST Refill request for Fluoxetine 10mg Last [facility] 02/19/21 Med check was 05/10/21 Upcoming on 08/13/21 Please review documented in this encounter Plan of Treatment Not on file documented as of this encounter Visit Diagnoses Diagnosis Depression, unspecified depression type Anxiety Anxiety state, unspecified documented in this encounter Care Teams Jv Baseball Coach Relationship Specialty Start Date End Date Maria Eugenia Arita MD PCP - General Pediatrics 02/19/21 documented as of this encounter
--- OUTSIDE RECORDS SUMMARY | 2024-08-08 17:39 | XMS_ITS | Encounter Summary ---
Author Organization [facility] Address [address] [place] [address] Phone Care Team Providers Care Curing Press Maintainer Name Role Phone Maria Eugenia Arita MD Primary Care Provider Unavailabl e Reason for Visit * Reason Comments Med Refill Encounter Details Date Type Department Care Team (Late st Contact Info) Description 01/12/2022 [facility]ill [facility] [address] [address] Maria Eugenia Arita MD Depression, unspecified depression [...] type documented in this encounter Care Teams Curing Press Maintainer Relationship Specialty Start Date End Date Maria Eugenia Arita MD PCP - General Pediatrics 02/19/21 documented as of this encounter
--- OUTSIDE RECORDS SUMMARY | 2024-08-08 17:39 | XMS_ITS | Encounter Summary ---
Author Organization [facility] Address [address] [place] [address] Phone Care Team Providers Care Sprinkler Tender Name Role Phone Maria Eugenia Arita MD Primary Care Provider Unavailabl e Reason for Visit * Reason Comments Med Refill Encounter Details Date Type Department Care Team (Late st Contact Info) Description 08/29/2021 [facility]ill [facility] [address] [address] Maria Eugenia Arita MD Depression, unspecified depression [...] Refill request for FLuoxetine 10mg Last [facility] 02/19/21 Med check 08/13/21 Upcoming on 09/01/21 Refilled 08/02/21 Please review documented in this encounter Plan of Treatment Not on file documented as of this encounter Visit Diagnoses Diagnosis Depression, unspecified depression type Anxiety Anxiety state, unspecified documented in this encounter Care Teams Sprinkler Tender Relationship Specialty Start Date End Date Maria Eugenia Arita MD PCP - General Pediatrics 02/19/21 documented as of this encounter
--- OUTSIDE RECORDS SUMMARY | 2024-08-08 17:39 | XMS_ITS | Encounter Summary ---
Author Organization [facility] Address [address] [place], [place] [phone] Phone Care Team Providers Care Bobj Developer Name Role Phone Maria Eugenia Arita MD Primary Care Provider Unavailabl e Encounter Details Date Type Department Care Team (Late st Contact Info) Description 09/17/2017 [facility]counter [facility] [address] [address] Tacos Anthony MD [address] [place] [phone] Social History Tobacco Use Types Packs/Day Years [...] on filedocumented in this encounter Care Teams Bobj Developer Relationship Specialty Start Date End Date Maria Eugenia Arita MD PCP - General Pediatrics 02/19/21 documented as of this encounter
--- OUTSIDE RECORDS SUMMARY | 2024-08-08 17:39 | XMS_ITS | Encounter Summary ---
Author Organization [facility] Address [address] [place] [phone] Phone Care Team Providers Care Digital Marketing Apprentice Name Role Phone Maria Eugenia Arita MD Primary Care Provider Unavailabl e Reason for Visit * Reason Comments Med Refill Encounter Details Date Type Department Care Team (Late st Contact Info) Description 09/27/2021 [facility]ill [facility] [address] [address] Maria Eugenia Arita MD Depression, unspecified depression [...] EDT Refill request for Fluoxetine 10mg Last [facility] 02/19/21 Med check 08/13/21 Refilled 08/30/21 Please review documented in this encounter Plan of Treatment Not on file documented as of this encounter Visit Diagnoses Diagnosis Depression, unspecified depression type Anxiety Anxiety state, unspecified documented in this encounter Care Teams Digital Marketing Apprentice Relationship Specialty Start Date End Date Maria Eugenia Arita MD PCP - General Pediatrics 02/19/21 documented as of this encounter
--- OUTSIDE RECORDS SUMMARY | 2024-08-08 17:39 | XMS_ITS | Clinical Summary ---
Author Organization [facility] Address [address] [place] [phone] Phone Care Team Providers Care Wide Area Network Administrator Name Role Phone Maria Eugenia Arita MD [...] A Vaccines Completed 02/19/2021, 05/17/19 20 Insurance [facility] NON PCC [facility] Care Teams Wide Area Network Administrator Relationship Specialty Start Date End Date Maria Eugenia Arita MD PCP - General Pediatrics 02/19/21
--- OUTSIDE RECORDS SUMMARY | 2024-08-08 17:39 | XMS_ITS | Encounter Summary ---
Author Organization [facility] Address [address] [place] [address] Phone Care Team Providers Care Professor Of Graphic Design Name Role Phone Maria Eugenia Arita MD Primary Care Provider Unavailabl e Reason for Visit * Reason Comments Med Refill Encounter Details Date Type Department Care Team (Late st Contact Info) Description 07/05/2022 [facility]ill [facility] [address] [address] Natalie Pan MD [address] [place] [phone] Depression, unspecified depression type Social History Tobacco [...] Refilled 02/14/22 3 refills Over due for [facility] Call to OLVIN Saleem to see if set up with adult PCP yet Please review documented in this encounter Plan of Treatment Not on file documented as of this encounter Visit Diagnoses Diagnosis Depression, unspecified depression type documented in this encounter Care Teams Professor Of Graphic Design Relationship Specialty Start Date End Date Maria Eugenia Arita MD PCP - General Pediatrics 02/19/21 documented as of this encounter
== END ==
LOC: HO.CARD 14:04
PROVIDERS: PCP Nurse Practitioner Family; Visit Provider Clinical Nurse Specialist Psychiatric/Mental Health
DX: R00.0 Tachycardia, unspecified (principal); F90.0 Attention-deficit hyperactivity disorder, predominantly inattentive type
CPT/HCPCS: 93005

== ENCOUNTER → 2024-08-08 15:23 | Outpatient (BNV) | payer OTHER, SELFPAY | PROVIDERS: PCP Nurse Practitioner Family; Visit Provider Internal Medicine Cardiovascular Disease | DX: I45.10 Unspecified right bundle-branch block (principal) | CPT/HCPCS: 93010 ==

== ENCOUNTER 2024-09-05 13:36 | Outpatient (AMB) | payer OTHER, SELFPAY ==
--- NOTE | 2024-09-05 13:17 | A.OFFPSYCH_ITS ---
Intake Intake Visit Reasons: f/u consultation Overhead Worker Required: No Allergies No Known Allergies Allergy (Verified 08/01/24 10:46) Medication List - Last Reconciled 09/05/24 by Brenda Fink APRN cholecalciferol (vitamin D3) 50 mcg PO DAILY dextroamphetamine-amphetamine 10 mg (Adderall) 10 mg PO DAILY@1630 PRN dextroamphetamine-amphetamine 20 mg ER (Adderall XR) 20 mg PO QAM escitalopram oxalate (Lexapro) 20 mg PO DAILY HPI- Psychiatric Chief Complaint: f/u consultation HPI Narrative: pt reports he is somewhat improved. He was sick with viral symptoms last week ad found himself more depressed but feels better this week; He is adherent with meds: taking lexapro 20mg daily, adderall XR 20mg daily and takes the IR adderal if he has a longer day at work; he is no longer in school ad is relieved. He enjoys working and has friends at work. He is getting more hours than in the past. He has been late to work and called out sick a few times. he says it is because mornings are harder for him. He doesn't sleep well and wakes up feeling more depressed and anxious. as the day goes on he feels better and has often wished he went to work. We discussed mother's day and he will talk with his grandfather about celebrating with his grandmother. He denies SI or Hi. He agrees to trial of remeron 7.5mg at bedtime for sleep appetite and depression Past Psychiatric History: 2 IPLOC as a child at [facility]- due to depression triggered by the loss of his mother from overdose when he was 15 and then the loss of her BF who had become father figure approximately a year later. Outpatient meds and therapy as child and teen Subjective Subjective Subjective Medication Compliance: Yes Side effects from medications: No Review of Systems Medical Review of Systems: unchanged Mental Status Exam Mental Status Exam Patient Appearance: Well Grooomed Patient Orientation: Person, Place, Time and Situation Level of Consciousness: Awake and Appropriate Patient Behavior: Appropriate and Cooperative Mood Description: Cheerful and Nervous Affect Description: Appropriate and Cheerful Patient Cognition Impaired: No Ability to Follow Directions: Good Speech Pattern: Clear and Appropriate Memory Description: Intact Hallucinations: None Delusions: Not Present Thought Process: Intact and Goal Oriented Thought Content: positive for Intact and positive for Goal Oriented Judgement: Good Assessment and Plan Assessment & Plan (1) ADHD: Status: Acute Qualifiers: Attention deficit-hyperactivity disorder type: predominantly inattentive Qualified Code(s): F90.0 - Attention-deficit hyperactivity disorder, predominantly inattentive type Code(s): F90.9 - Attention-deficit hyperactivity disorder, unspecified type (2) KYAW (generalized anxiety disorder): Status: Acute Code(s): F41.1 - Generalized anxiety disorder (3) MDD (major depressive disorder): Status: Acute Qualifiers: Major depression recurrence: recurrent Active/Remission status: currently active Major depression episode severity: moderate Qualified Code(s): F33.1 - Major depressive disorder, recurrent, moderate Code(s): F32.9 - Major depressive disorder, single episode, unspecified Plan take meds as per below return in 4 weeks Medications: New mirtazapine 7.5 mg PO BEDTIME 30 tabs 1RF Refilled escitalopram oxalate (Lexapro) 20 mg PO DAILY 90 tabs 0RF dextroamphetamine-amphetamine 10 mg (Adderall) Partial Fill upon patient request. 10 mg PO DAILY@1630 PRN 20 tabs 0RF breakthrough ADHD symptoms dextroamphetamine-amphetamine 20 mg ER (Adderall XR) Partial Fill upon patient request. 20 mg PO QAM 30 caps 0RF ADHD Counseling and coordination of Care Pt. Self Management counseling: Maintenance-social rhythm, Mod caffeine/ETOH intake, Nutrition education and improvement, Sleep hygiene, General coping skills and Problem solving Medication management counseling: Effectiveness, Side effects, Dosing range, Duration, Drug interaction and Adherence Diagnosis and Prognosis Counseling: Accuracy of diagnosis, Prognosis over time, Impact of diagnosis on life functions, Impact of family relationship, Problematic behaviors secondary to diagnosis and Adequacy of current interventions Details: I spent 35 minutes reviewing the record, seeing the patient and documenting in the medical record. Counseling provided to the patient/caregiver as outlined below. Addressed patient/caregiver concerns regarding current medication regime including effective adherence. Addressed patient/caregiver concerns regarding diagnosis and prognosis including accuracy of diagnosis, prognosis over time, impact of diagnosis. Addressed patient/caregiver concerns regarding impact of recent stressors. COUNTS INCLUDE 234 BEDS AT THE [facility] Medical History (Updated 05/15/24 @ 10:49 [facility] Depression Anxiety Family History (Updated 06/05/23 @ 11:16 by LAUREN Whitehead) Mother Asthma Psychiatric diagnosis Social History Housing: House Patient Tobacco Use Status: Never used Tobacco e-Cigarette/Vaping Use: Never Used Second Hand Smoke Exposure: No service: No Current occupational status: unemployed Cognitive needs: No Hearing needs: No Vision needs: No Social History: lives with grandparents who are in their 60s. parents were in and had pt when they were young around age 20. parents unable to care for pt due to drug use and grandparents got custody. Substance History: Pt episodic ETOH use. most 12 pack beer in a week. Uses THC mostly daily in [place]. no other drug use Trauma History: yes Coding Level of Care Code Est Pt Level 4 (62570) Diagnoses Attention deficit hyperactivity disorder (ADHD), predominantly inattentive type F90.0 Attention deficit-hyperactivity disorder type: predominantly inattentive KYAW (generalized anxiety disorder) F41.1 Moderate episode of recurrent major depressive disorder F33.1 Major depression recurrence: recurrent Active/Remission status: currently active Major depression episode severity: moderate
--- OUTSIDE RECORDS SUMMARY | 2024-09-05 14:36 | XMS_ITS | Clinical Summary ---
Author Organization [facility] Address [address] [place] [phone] Phone Care Team Providers Care Sand Caster Apprentice Name Role Phone Maria Eugenia Arita [...] A Vaccines Completed 02/19/2021, 05/17/19 20 Insurance [facility] NON PCC [facility] NON PCC Care Teams Sand Caster Apprentice Relationship Specialty Start Date End Date Maria Eugenia Arita MD PCP - General Pediatrics 02/19/21
--- OUTSIDE RECORDS SUMMARY | 2024-09-05 14:36 | XMS_ITS | Encounter Summary ---
Author Organization [facility] Address [address] [place] [phone] Phone Care Team Providers Care Soda Dry House Operator Name Role Phone Maria Eugenia Arita MD Primary Care Provider Unavailabl e Reason for Visit * Reason Comments Med Refill Encounter Details Date Type Department Care Team (Late st Contact Info) Description 05/17/2021 [facility]ill [facility] [address] [address] Maria Eugenia Arita MD Depression, unspecified depression [...] EST Refill request for Fluoxetine 10mg Last [facility] 02/19/21 Med check was 05/10/21 Upcoming on 08/13/21 Please review documented in this encounter Plan of Treatment Not on file documented as of this encounter Visit Diagnoses Diagnosis Depression, unspecified depression type Anxiety Anxiety state, unspecified documented in this encounter Care Teams Soda Dry House Operator Relationship Specialty Start Date End Date Maria Eugenia Arita MD PCP - General Pediatrics 02/19/21 documented as of this encounter
--- OUTSIDE RECORDS SUMMARY | 2024-09-05 14:36 | XMS_ITS | Encounter Summary ---
Author Organization [facility] Address [address] [place] [address] Phone Care Team Providers Care Turbine Blade Assembler Name Role Phone Maria Eugenia Arita MD Primary Care Provider Unavailabl e Reason for Visit * Reason Comments Med Refill Encounter Details Date Type Department Care Team (Late st Contact Info) Description 09/27/2021 [facility]ill [facility] [address] [address] Maria Eugenia Arita MD Depression, unspecified depression [...] EDT Refill request for Fluoxetine 10mg Last [facility] 02/19/21 Med check 08/13/21 Refilled 08/30/21 Please review documented in this encounter Plan of Treatment Not on file documented as of this encounter Visit Diagnoses Diagnosis Depression, unspecified depression type Anxiety Anxiety state, unspecified documented in this encounter Care Teams Turbine Blade Assembler Relationship Specialty Start Date End Date Maria Eugenia Arita MD PCP - General Pediatrics 02/19/21 documented as of this encounter
--- OUTSIDE RECORDS SUMMARY | 2024-09-05 14:36 | XMS_ITS | Encounter Summary ---
Author Organization [facility] Address [address] [place] [address] Phone Care Team Providers Care Entry Level Administrative Assistant Name Role Phone Maria Eugenia Arita MD Primary Care Provider Unavailabl e Reason for Visit * Reason Comments Med Refill Encounter Details Date Type Department Care Team (Late st Contact Info) Description 07/05/2022 [facility]ill [facility] [address] [address] Natalie Pan MD [address] [place] [phone] Depression, unspecified depression type Social History Tobacco [...] Refilled 02/14/22 3 refills Over due for [facility] Call to OLVIN Saleem to see if set up with adult PCP yet Please review documented in this encounter Plan of Treatment Not on file documented as of this encounter Visit Diagnoses Diagnosis Depression, unspecified depression type documented in this encounter Care Teams Entry Level Administrative Assistant Relationship Specialty Start Date End Date Maria Eugenia Arita MD PCP - General Pediatrics 02/19/21 documented as of this encounter
--- OUTSIDE RECORDS SUMMARY | 2024-09-05 14:36 | XMS_ITS | Encounter Summary ---
Author Organization [facility] Address [address] [place], [place] [id number] Phone Care Team Providers Care Chucker Name Role Phone Maria Eugenia Arita MD Primary Care Provider Unavailabl e Encounter Details Date Type Department Care Team (Late st Contact Info) Description 09/17/2017 [facility]counter [facility] [address] [address] Tacos Anthony MD [address] [place] [address] Social History Tobacco Use Types Packs/Day Years [...] on filedocumented in this encounter Care Teams Chucker Relationship Specialty Start Date End Date Maria Eugenia Arita MD PCP - General Pediatrics 02/19/21 documented as of this encounter
--- OUTSIDE RECORDS SUMMARY | 2024-09-05 14:36 | XMS_ITS | Encounter Summary ---
Author Organization [facility] Address [address] [place] [address] Phone Care Team Providers Care Care Clinician Name Role Phone Maria Eugenia Arita MD Primary Care Provider Unavailabl e Reason for Visit * Reason Comments Med Refill Encounter Details Date Type Department Care Team (Late st Contact Info) Description 02/13/2022 [facility]ill [facility] [address] [address] Maria Eugenia rAita MD Depression, unspecified depression type Social History [...] type documented in this encounter Care Teams Care Clinician Relationship Specialty Start Date End Date Maria Eugenia Arita MD PCP - General Pediatrics 02/19/21 documented as of this encounter
--- OUTSIDE RECORDS SUMMARY | 2024-09-05 14:36 | XMS_ITS | Encounter Summary ---
Author Organization [facility] Address [address] [place] [address] Phone Care Team Providers Care Collections Representative Name Role Phone Maria Eugenia Arita MD Primary Care Provider Unavailabl e Reason for Visit * Reason Comments Med Refill Encounter Details Date Type Department Care Team (Late st Contact Info) Description 08/29/2021 [facility]ill [facility] [address] [address] Maria Eugenia Arita MD Depression, unspecified depression [...] EDT Refill request for FLuoxetine 10mg Last [facility] 02/19/21 Med check 08/13/21 Upcoming on 09/01/21 Refilled 08/02/21 Please review documented in this encounter Plan of Treatment Not on file documented as of this encounter Visit Diagnoses Diagnosis Depression, unspecified depression type Anxiety Anxiety state, unspecified documented in this encounter Care Teams Collections Representative Relationship Specialty Start Date End Date Maria Eugenia Arita MD PCP - General Pediatrics 02/19/21 documented as of this encounter
--- OUTSIDE RECORDS SUMMARY | 2024-09-05 14:36 | XMS_ITS | Encounter Summary ---
Author Organization [facility] Address [address] [place] [address] Phone Care Team Providers Care Clinic Office Assistant Name Role Phone Maria Eugenia Arita MD Primary Care Provider Unavailabl e Reason for Visit * Reason Comments Med Refill Encounter Details Date Type Department Care Team (Late st Contact Info) Description 01/12/2022 [facility]ill [facility] [address] [address] Maria Eugenia Arita MD Depression, unspecified depression [...] type documented in this encounter Care Teams Clinic Office Assistant Relationship Specialty Start Date End Date Maria Eugenia Arita MD PCP - General Pediatrics 02/19/21 documented as of this encounter
== END 2024-09-05 17:19 | disposition home or self-care (01) ==
LOC: HO.HOP 13:36
PROVIDERS: PCP Nurse Practitioner Family; Visit Provider Clinical Nurse Specialist Psychiatric/Mental Health
DX: F90.0 Attention-deficit hyperactivity disorder, predominantly inattentive type (principal); F41.1 Generalized anxiety disorder; F33.1 Major depressive disorder, recurrent, moderate
CPT/HCPCS: 99214

== ENCOUNTER → 2024-09-05 13:36 | Outpatient (BNVA) | payer OTHER, SELFPAY | PROVIDERS: PCP Nurse Practitioner Family; Visit Provider Clinical Nurse Specialist Psychiatric/Mental Health | DX: F90.0 Attention-deficit hyperactivity disorder, predominantly inattentive type (principal); F33.1 Major depressive disorder, recurrent, moderate; F41.1 Generalized anxiety disorder; Z71.89 Other specified counseling | CPT/HCPCS: 99212 ==

== ENCOUNTER 2025-01-21 14:38 | Outpatient (AMB) | payer OTHER, SELFPAY ==
--- NOTE | 2025-01-21 14:46 | MHC.OFFVISPS ---
Intake Intake Visit Reasons: reconsultation Body Shop Estimator Required: No Allergies No Known Allergies Allergy (Verified 08/01/24 10:46) Medication List - Last Reconciled 01/21/25 by Brenda Fink APRN cholecalciferol (vitamin D3) 50 mcg PO DAILY dextroamphetamine-amphetamine 10 mg (Adderall) 10 mg PO DAILY@1630 PRN dextroamphetamine-amphetamine 20 mg ER (Adderall XR) 20 mg PO QAM escitalopram oxalate (Lexapro) 20 mg PO DAILY mirtazapine 7.5 mg PO BEDTIME HPI- Psychiatric Chief Complaint: reconsultation HPI Narrative: pt report he dropped out of treatment due to being preoccupied with a difficult relationship with a partner who has a mental illness and wasn't taking their meds; thye were being aggressive and pt got mor e depressed and withdrawn; he missed so muc work that he was let go. He has continued to take his lexapro. he denies SI and HI. he reports relationship going better and he wants to resume treatment and go back to work. He enjoys working and has friends at work. Past Psychiatric History: 2 IPLOC as a child at [facility]- due to depression triggered by the loss of his mother from overdose when he was 15 and then the loss of her BF who had become father figure approximately a year later. Outpatient meds and therapy as child and teen Subjective Subjective Subjective Medication Compliance: Yes Side effects from medications: No Review of Systems Medical Review of Systems: unchanged Mental Status Exam Mental Status Exam Patient Appearance: Disheveled and Unkempt Patient Orientation: Person, Place, Time and Situation Level of Consciousness: Awake and Appropriate Patient Behavior: Appropriate and Cooperative Mood Description: Depressed, Anxious, Flat and Nervous Affect Description: Depressed, Anxious and Flat Patient Cognition Impaired: No Ability to Follow Directions: Good Speech Pattern: Clear and Appropriate Memory Description: Intact Hallucinations: None Delusions: Not Present Thought Process: Intact and Goal Oriented Thought Content: positive for Intact and positive for Goal Oriented Judgement: Good Assessment and Plan Assessment & Plan Medications: Refilled dextroamphetamine-amphetamine 20 mg ER (Adderall XR) Partial Fill upon patient request. 20 mg PO QAM 30 caps 0RF ADHD escitalopram oxalate (Lexapro) 20 mg PO DAILY 90 tabs 1RF dextroamphetamine-amphetamine 10 mg (Adderall) Partial Fill upon patient request. 10 mg PO DAILY@1630 PRN 20 tabs 0RF breakthrough ADHD symptoms Counseling and coordination of Care Pt. Self Management counseling: Maintenance-social rhythm, Mod caffeine/ETOH intake, Nutrition education and improvement, Sleep hygiene and General coping skills Medication management counseling: Effectiveness, Side effects, Dosing range, Duration, Drug interaction and Adherence Diagnosis and Prognosis Counseling: Accuracy of diagnosis, Prognosis over time, Impact of diagnosis on life functions, Impact of family relationship, Problematic behaviors secondary to diagnosis and Adequacy of current interventions Details: I spent 35 minutes reviewing the record, seeing the patient and documenting in the medical record. Counseling provided to the patient/caregiver as outlined below. Addressed patient/caregiver concerns regarding current medication regime including effective adherence. Addressed patient/caregiver concerns regarding diagnosis and prognosis including accuracy of diagnosis, prognosis over time, impact of diagnosis. Addressed patient/caregiver concerns regarding impact of recent stressors. [facility] Medical History (Updated 05/15/24 @ 10:49 by [facility] Depression Anxiety Family History (Updated 06/05/23 @ 11:16 by Koki Esquivel [facility]) Mother Asthma Psychiatric diagnosis Social History Housing: House Patient Tobacco Use Status: Never used Tobacco e-Cigarette/Vaping Use: Never Used Second Hand Smoke Exposure: No service: No Current occupational status: unemployed Cognitive needs: No Hearing needs: No Vision needs: No Social History: lives with grandparents who are in their 60s. parents were in and had pt when they were young around age 20. parents unable to care for pt due to drug use and grandparents got custody. Substance History: Pt episodic ETOH use. most 12 pack beer in a week. Uses THC mostly daily in [place]. no other drug use Trauma History: yes Coding Level of Care Code Est Pt Level 4 (01335)
--- OUTSIDE RECORDS SUMMARY | 2025-01-21 17:50 | XMS_ITS | Encounter Summary ---
Author Organization [facility] Address [address] [place] [address] Phone Care Team Providers Care Fabric Machine Operator Name Role Phone Maria Eugenia Arita MD Primary Care Provider Unavailabl e Reason for Visit * Reason Comments Med Refill Encounter Details Date Type Department Care Team (Late st Contact Info) Description 02/13/2022 [facility]ill [facility] [address] [address] Maria Eugenia Arita MD Depression, unspecified depression [...] type documented in this encounter Care Teams Fabric Machine Operator Relationship Specialty Start Date End Date Maria Eugenia Arita MD PCP - General Pediatrics 02/19/21 documented as of this encounter
--- OUTSIDE RECORDS SUMMARY | 2025-01-21 17:50 | XMS_ITS | Encounter Summary ---
Author Organization [facility] Address [address] [place] [address] Phone Care Team Providers Care Escrow Assistant Name Role Phone Maria Eugenia Arita MD Primary Care Provider Unavailabl e Reason for Visit * Reason Comments Med Refill Encounter Details Date Type Department Care Team (Late st Contact Info) Description 07/05/2022 [facility]ill [facility] [address] [address] Natalie Pan MD [address] [place] [phone] Depression, unspecified depression type Social History Tobacco [...] Refilled 02/14/22 3 refills Over due for [facility] Call to OLVIN Saleem to see if set up with adult PCP yet Please review documented in this encounter Plan of Treatment Not on file documented as of this encounter Visit Diagnoses Diagnosis Depression, unspecified depression type documented in this encounter Care Teams Escrow Assistant Relationship Specialty Start Date End Date Maria Eugenia Arita MD PCP - General Pediatrics 02/19/21 documented as of this encounter
--- OUTSIDE RECORDS SUMMARY | 2025-01-21 17:50 | XMS_ITS | Encounter Summary ---
Author Organization [facility] Address [address] [place], [place] [phone] Phone Care Team Providers Care Sales And Marketing Intern Name Role Phone Maria Eugenia Arita MD Primary Care Provider Unavailabl e Encounter Details Date Type Department Care Team (Late st Contact Info) Description 09/17/2017 [facility]counter [facility] [address] [address] Tacos Anthony MD [address] [place] [address] Social History Tobacco Use Types Packs/Day Years [...] on filedocumented in this encounter Care Teams Sales And Marketing Intern Relationship Specialty Start Date End Date Maria Eugenia Arita MD PCP - General Pediatrics 02/19/21 documented as of this encounter
--- OUTSIDE RECORDS SUMMARY | 2025-01-21 17:50 | XMS_ITS | Encounter Summary ---
Author Organization [facility] Address [address] [place] [phone] Phone Care Team Providers Care Floor Covering Installer Name Role Phone Maria Eugenia Arita MD Primary Care Provider Unavailabl e Reason for Visit * Reason Comments Med Refill Encounter Details Date Type Department Care Team (Late st Contact Info) Description 05/17/2021 [facility]ill [facility] [address] [address] Maria Eugenia Arita MD Depression, unspecified depression [...] EST Refill request for Fluoxetine 10mg Last [facility] 02/19/21 Med check was 05/10/21 Upcoming on 08/13/21 Please review documented in this encounter Plan of Treatment Not on file documented as of this encounter Visit Diagnoses Diagnosis Depression, unspecified depression type Anxiety Anxiety state, unspecified documented in this encounter Care Teams Floor Covering Installer Relationship Specialty Start Date End Date Maria Eugenia Arita MD PCP - General Pediatrics 02/19/21 documented as of this encounter
--- OUTSIDE RECORDS SUMMARY | 2025-01-21 17:50 | XMS_ITS | Encounter Summary ---
Author Organization [facility] Address [address] [place] [address] Phone Care Team Providers Care Fishing Tackle Repairer Name Role Phone Maria Eugenia Arita MD Primary Care Provider Unavailabl e Reason for Visit * Reason Comments Med Refill Encounter Details Date Type Department Care Team (Late st Contact Info) Description 08/29/2021 [facility]ill [facility] [address] [address] Maria Eugenia Arita MD Depression, unspecified depression [...] EDT Refill request for FLuoxetine 10mg Last [facility] 02/19/21 Med check 08/13/21 Upcoming on 09/01/21 Refilled 08/02/21 Please review documented in this encounter Plan of Treatment Not on file documented as of this encounter Visit Diagnoses Diagnosis Depression, unspecified depression type Anxiety Anxiety state, unspecified documented in this encounter Care Teams Fishing Tackle Repairer Relationship Specialty Start Date End Date Maria Eugenia Arita MD PCP - General Pediatrics 02/19/21 documented as of this encounter
--- OUTSIDE RECORDS SUMMARY | 2025-01-21 17:50 | XMS_ITS | Clinical Summary ---
Author Organization [facility] Address [address] [place] [id number] Phone Care Team Providers Care Customs Opener Verifier Packer Name Role Phone Maria Eugenia Arita MD [...] PM EST Pulse - - Temperature 36.7 C (98 F) 02/04/2022 2:49 PM EDT Respiratory Rate - [...] 10/02/2002, Additional history exists Influenza Vaccines (#1) 2024 COVID-19 Vaccine (2023-2 5 season) 2024 Hepatitis B Vaccines Completed 03/27/2002, 2001, 2001 Pneumococcal Vaccine Completed 10/02/2002, 2001, 2001, Additional history exists MMR Vaccines Completed 07/27/2005, 06/28/2002 IPV Vaccines Completed 08/01/2006, 03/02, 2001, Additional history exists HIB Vaccines Completed 07/27/2007, 07/2002, 2001, Additional history exists Varicella Vaccines Completed 08/03/2007, 06/28/2002 HPV Vaccines Completed 10/16/2015, 06/01, 04/13/2015 Meningococcal Vaccine Completed 05/16/2018, 013 Hepatitis A Vaccines Completed 02/19/2021, 05/17/19 20 Insurance [facility] NON PCC [facility] NON PCC Care Teams Customs Opener Verifier Packer Relationship Specialty Start Date End Date Maria Eugenia Arita MD PCP - General Pediatrics 02/19/21
--- OUTSIDE RECORDS SUMMARY | 2025-01-21 17:50 | XMS_ITS | Encounter Summary ---
Author Organization [facility] Address [address] [place] [phone] Phone Care Team Providers Care Allopathic Doctor Name Role Phone Maria Eugenia Arita MD Primary Care Provider Unavailabl e Reason for Visit * Reason Comments Med Refill Encounter Details Date Type Department Care Team (Late st Contact Info) Description 09/27/2021 [facility]ill [facility] [address] [address] Maria Eugenia Arita MD Depression, unspecified depression [...] EDT Refill request for Fluoxetine 10mg Last [facility] 02/19/21 Med check 08/13/21 Refilled 08/30/21 Please review documented in this encounter Plan of Treatment Not on file documented as of this encounter Visit Diagnoses Diagnosis Depression, unspecified depression type Anxiety Anxiety state, unspecified documented in this encounter Care Teams Allopathic Doctor Relationship Specialty Start Date End Date Maria Eugenia Arita MD PCP - General Pediatrics 02/19/21 documented as of this encounter
--- OUTSIDE RECORDS SUMMARY | 2025-01-21 17:50 | XMS_ITS | Encounter Summary ---
Author Organization [facility] Address [address] [place] [phone] Phone Care Team Providers Care It Architecture Consultant Name Role Phone Maria Eugenia Arita MD Primary Care Provider Unavailabl e Reason for Visit * Reason Comments Med Refill Encounter Details Date Type Department Care Team (Late st Contact Info) Description 01/12/2022 Refill [facility] [address] [address] Maria Eugenia Arita MD Depression, unspecified depression [...] type documented in this encounter Care Teams It Architecture Consultant Relationship Specialty Start Date End Date Maria Eugenia Arita MD PCP - General Pediatrics 02/19/21 documented as of this encounter
== END 2025-01-21 15:03 | disposition home or self-care (01) ==
LOC: HO.HOP 14:38
PROVIDERS: PCP Nurse Practitioner Family; Visit Provider Clinical Nurse Specialist Psychiatric/Mental Health
DX: F99 Mental disorder, not otherwise specified (principal)
CPT/HCPCS: 99214

== ENCOUNTER → 2025-01-21 14:38 | Outpatient (BNVA) | payer OTHER, SELFPAY | PROVIDERS: PCP Nurse Practitioner Family; Visit Provider Clinical Nurse Specialist Psychiatric/Mental Health | DX: F99 Mental disorder, not otherwise specified (principal) | CPT/HCPCS: 99212 ==